=== PATIENT | male | born 1960 | race Caucasian/White ===

== ENCOUNTER 2016-10-19 06:11 | Day surgery (SDC) | payer OTHER ==
[2016-10-19] VITALS (8 sets, daily range): BP systolic 109–129; BP diastolic 67–100; PULSE 58–87; RESP 16–20; TEMP 94.9–97.7; O2SAT 95–100
[~2016-10-19] VITALS: Ht 165.1 cm; Wt 75.0 kg
[~2016-10-19 06:11] MED LIST: AMOX875T20 PO; AZIT250T43 PO; ENOX120P SQ; FLUO-1 PO; PRED20 PO
[2016-10-19] MEDS ORDERED: LEVO25TA4 PO (06:39)
[2016-10-19 07:04] LABS: AUTOMATED NEUTROPHIL # 4.3 TH/MM3 (1.8-7.7); BASOPHIL % 0.5 % (0.0-2.0); EOSINOPHIL # 0.3 TH/MM3 (0-0.4); EOSINOPHIL % 4.7 % (0.0-4.0); HEMATOCRIT 40.6 % (39.0-51.0); HEMO FLAGS DIFF FINAL; LYMPH % 25.7 % (9.0-44.0); LYMPHOCYTE # 1.8 TH/MM3 (1.0-4.8); MEAN CELL VOLUME 89.4 FL (80.0-100.0); MEAN CORPUSCULAR HEMOGLOBIN 30.9 PG (27.0-34.0); MEAN CORPUSCULAR HGB CONC 34.5 % (32.0-36.0); MONO % 6.5 % (0.0-8.0); NEUT % 62.6 % (16.0-70.0); PLATELET COUNT 226 TH/MM3 (150-450); RED BLOOD COUNT 4.54 MIL/MM3 (4.50-5.90); RED CELL DISTRIBUTION WIDTH 13.7 % (11.6-17.2); WHITE BLOOD COUNT 6.9 TH/MM3 (4.0-11.0)
[2016-10-19 07:14] LABS: PROTHROMBIN TIME - PATIENT 11.1 SEC (9.8-11.6)
[2016-10-19] MEDS ORDERED: ceFAZolin 2 GM PREMIX 50 ML ONE (07:43)
[2016-10-19] MEDS ORDERED: MIDAZOLAM HCL 2 MG/2 ML VIAL ONE ×2 (07:44→08:16)
[2016-10-19] MEDS ORDERED: LIDOCAINE 1%/EPINEPHrine 1:100,000 SOLN 20 ML VIAL ONE (08:05)
--- NOTE | 2016-10-19 08:35 | PD.RAD ---
Post Procedure Progress Note Pre Procedure Diagnosis: (1) Lung cancer Post Procedure Diagnosis: (1) Lung cancer Procedure Date: Oct 19, 2016 Supervising Radiologist: Seven Herrera JR Proceduralist/Assist: Zulema Jenkins, RT(R), Ledy Carlton RT(R)() Anesthesia: Conscious Sedation Plan of Activity Patient to Unit: ROPU Patient Condition: Good See PACS Report for procedural detail/treatment Central Venous Access Device Procedure 1 Right Internal Jugular Infusaport Removal single lumen Findings: No signs of infection. Port removed in its entirety. Plan F/U with IR or a physician in 10-14 days for a site check. Jr. Javier,Seven Camp MD Oct 19, 2016 08:35
--- NOTE | 2016-10-19 08:53 | RADRPT ---
EXAM DATE/TIME: 10/19/2016 07:20 [facility] COMPARISON: No previous studies available for comparison. INDICATIONS : Patient is in need of removal of an Infusaport as patient no longer needs it. Lung cancer in [facility]. MEDICAL HISTORY : History of non small cell lung cancer, thyroid disease. SURGICAL HISTORY : History of port placement. ENCOUNTER: Subsequent ACUITY: > 1 year PAIN SCORE: 0/10 SEDATION TIME: 15 minutes 1.) 4 mg midazolam (Versed) IV 2.) 200 mcg fentanyl (Sublimaze) IV Prophylactic antibiotics were administered with appropriate pre-procedure timing. Vancomycin within 2 hrs of procedure, Ancef (or alternative) within 1 hr of procedure. PROCEDURE : 1. Removal of Nyhnou-o-knud. 2. Conscious sedation with continuous EKG and oximetry monitoring. The risk, benefits and potential complications of Fwcwdh-p-Rjhg removal were discussed. Written conse nt was obtained. The patient was placed supine. The chest wall was prepped in sterile fashion. Full sterile techniqu e was used, including cap, mask, sterile gloves and gown, and a large sterile sheet. Hand hygiene an d 2% chlorhexidine and/or Betadine/alcohol prep was utilized per protocol for cutaneous antisepsis. The skin and subcutaneous tissues were infiltrated with local anesthetic solution. A small incision w as made, the subcutaneous pocket was opened. The port was dissected from the subcutaneous tissues and easily removed in one piece. The pocket incision was closed with subcuticular Vicryl suture. Steri -Strips were applied. Conscious sedation was performed with the prescribed dosages and duration as above in the presence of an independent trained radiology nurse to assist in the monitoring of the patient. EKG and oximetry remained stable throughout the procedure. The patient tolerated the procedure well and there were no complications. The patient was sent to post anesthesia recovery in stable condition. CONCLUSION: Uncomplicated port removal as above. Seven Herrera Jr., MD on October 19, 2016 at 8:50 Board Certified Radiologist. This report was verified electronically.
== END 2016-10-19 11:35 | disposition home or self-care (01) ==
LOC: HRIP 06:11 → HROP 06:11
PROVIDERS: ATTEND Radiology Radiation Oncology
DX: C34.11 Malignant neoplasm of upper lobe, right bronchus or lung (principal); E07.9 Disorder of thyroid, unspecified
CPT/HCPCS: 36590; 85025; 85610; 85730; 99152; J0690; J2250; J3010

== ENCOUNTER 2017-09-08 12:36 | Day surgery (SDC) | payer OTHER ==
[~2017-09-08 12:36] MED LIST changes: -AMOX875T20 PO; -AZIT250T43 PO; -ENOX120P SQ; -FLUO-1 PO; +LEVO25TA4 PO; -PRED20 PO
[2017-09-08 13:11] VITALS: BP 112/70; PULSE 74; RESP 14; TEMP 97; O2SAT 97
[2017-09-08 14:02] VITALS: BP 112/67; PULSE 60; RESP 20; TEMP 97.8; O2SAT 96
[2017-09-08] MEDS ORDERED: LIDOCAINE HCL 1% 20 ML VIAL ONE (14:06)
--- NOTE | 2017-09-08 16:07 | RADRPT ---
EXAM DATE/TIME: 09/08/2017 13:05 [facility] COMPARISON: No previous studies available for comparison. EXTERNAL COMPARISON: [facility], PET/CT TUMOR, Aug 17 2017. INDICATIONS : Enlarged right axilla lymph node. MEDICAL HISTORY : Carcinoma, lung. Thyroid disease. Anxiety. SURGICAL HISTORY : Port insertion. Chemotherapy. Radiation therapy. ENCOUNTER: Initial ACUITY: 3 weeks PAIN SCORE: 0/10 LOCATION: Right axilla. ORGAN: Right lymph node SPECIMENS: Three core specimen(s) submitted for pathologic evaluation. DEVICE: 18 gauge Temno needle Post procedure scanning reveals no hematoma or other complication. The possibility does exist that the tissue obtained will be non-diagnostic. If the sample is non-jillian gnostic a repeat biopsy or surgical biopsy may need to be performed. TECHNIQUE: 1. Ultrasound guidance for needle biopsy. 2. Needle biopsy. The risks, benefits and alternatives to the procedure were explained and verbal and written consent w as obtained. The site was prepped in sterile fashion. Full sterile technique was used, including ca p, mask, sterile gloves and gown and a large sterile sheet. Hand hygiene and 2% chlorhexidine and/or betadine/alcohol prep was utilized per protocol for cutaneous antisepsis. The skin and subcutaneous tissues were infiltrated with local anesthetic solution. Sterile gel and sterile probe cover were u tilized for ultrasound guidance. With the patient on the ultrasound table, images were obtained. A needle was advanced into the identified target and the number of specimens as above obtained and shore bmitted for pathologic evaluation. The patient tolerated the procedure well and left the ultrasound suite in stable condition. CONCLUSION: Uncomplicated ultrasound guided needle biopsy. Yan Zaldivar MD on September 08, 2017 at 16:04 Board Certified Radiologist. This report was verified electronically.
== END 2017-09-08 14:18 | disposition home or self-care (01) ==
LOC: HRAD 12:36 → HRIP 12:41 → HRAD 14:18
PROVIDERS: ATTEND Radiology Radiation Oncology
DX: R59.0 Localized enlarged lymph nodes (principal); C34.91 Malignant neoplasm of unspecified part of right bronchus or lung
CPT/HCPCS: 38505; 76942; 88305

== ENCOUNTER 2017-10-13 06:16 | Day surgery (SDC) | payer OTHER ==
[~2017-10-13] VITALS: Ht 165.1 cm; Wt 72.7 kg
[2017-10-13] VITALS (7 sets, daily range): BP systolic 114–148; BP diastolic 38–92; PULSE 61–80; RESP 17–20; TEMP 97.5; O2SAT 91–96
[2017-10-13 07:24] LABS: AUTOMATED NEUTROPHIL # 4.3 TH/MM3 (1.8-7.7); BASOPHIL % 0.4 % (0.0-2.0); EOSINOPHIL # 0.3 TH/MM3 (0-0.4); EOSINOPHIL % 3.9 % (0.0-4.0); HEMATOCRIT 42.5 % (39.0-51.0); HEMOGLOBIN 14.7 GM/DL (13.0-17.0); LYMPH % 21.4 % (9.0-44.0); LYMPHOCYTE # 1.4 TH/MM3 (1.0-4.8); MEAN CELL VOLUME 89.2 FL (80.0-100.0); MEAN CORPUSCULAR HGB CONC 34.7 % (32.0-36.0); MEAN PLATELET VOLUME 6.3 FL (7.0-11.0); MONO % 8.5 % (0.0-8.0); MONOCYTE # 0.6 TH/MM3 (0-0.9); NEUT % 65.8 % (16.0-70.0); PLATELET COUNT 277 TH/MM3 (150-450); RED BLOOD COUNT 4.76 MIL/MM3 (4.50-5.90); RED CELL DISTRIBUTION WIDTH 13.8 % (11.6-17.2); WHITE BLOOD COUNT 6.5 TH/MM3 (4.0-11.0)
[2017-10-13] MEDS ORDERED: VANCOMYCIN HCL 1000 MG VIAL ONE (07:25)
[2017-10-13] MEDS ORDERED: SODIUM CHLORIDE 0.9% 1000 ML IV SCH (07:30)
[2017-10-13] MEDS ORDERED: CHLORHEXIDINE GLUCONATE 2 % 1 PACK (2 CLOTHS) TOPICAL SCH (07:30)
[2017-10-13] MEDS ORDERED: VANCOMYCIN 1 GM/200 ML PREMIX IV SCH (07:30)
[2017-10-13] MEDS ORDERED: POVIDONE IODINE 5% (ANTISEPSIS KIT) 4 APPLICATIONS EACH NARE SCH (07:30)
[2017-10-13] MEDS ORDERED: ceFAZolin 2 GM PREMIX 50 ML - implanted port/tunneled catheter insertion IV SCH (07:30)
[2017-10-13 07:33] LABS: INTERNATIONAL NORMALIZED RATIO 1.1 RATIO; PROTHROMBIN TIME - PATIENT 11.2 SEC (9.8-11.6)
[2017-10-13] MEDS ORDERED: LIDOCAINE 1%/EPINEPHrine 1:100,000 SOLN 30 ML VIAL ONE (07:40)
[2017-10-13] MEDS ORDERED: MIDAZOLAM HCL 2 MG/2 ML VIAL ONE (08:16)
[2017-10-13] MEDS ORDERED: SODIUM CHLORIDE 0.9% FLUSH 10 ML FLUSH IVF PRN (08:45)
--- NOTE | 2017-10-13 08:47 | PD.RAD ---
Post Procedure Progress Note Pre Procedure Diagnosis: (1) Lung cancer Post Procedure Diagnosis: (1) Lung cancer Procedure Date: Oct 13, 2017 Supervising Radiologist: Cosme Strickland Estimated blood loss: 2cc Anesthesia: Local, Conscious Sedation Plan of Activity Patient to Unit: ROPU Patient Condition: Fair Additional Comments: Port placed via the right IJ. Catheter in good position OK for use. Full dictated report to follow. See PACS Report for procedural detail/treatment Cosme Strickland MD Oct 13, 2017 08:47
--- NOTE | 2017-10-13 10:06 | RADRPT ---
EXAM DATE/TIME: 10/13/2017 08:55 [facility] COMPARISON: SPAUB-I-BRNO REMOVAL, W/O FLUORO, RIGHT, October 19, 2016, 7:20. INDICATIONS : Patient with non-small cell lung cancer in need of Lddap-u-Qtco placement. MEDICAL HISTORY : Metastatic lung cancer, Large pericardial effusion, Right pleural effusion, Pulmonary emboli SURGICAL HISTORY : Port placement, Pericardiocentesis, Lung biopsy ENCOUNTER: Subsequent ACUITY: >1 year PAIN SCORE: 0/10 FLUORO TIME: 0.4 minutes IMAGE SERIES: 2 SEDATION TIME: 15 minutes ACCESS: Right internal jugular vein SEDATION: 1.) 2 mg midazolam (Versed) IV 2.) 100 mcg fentanyl (Sublimaze) IV Prophylactic antibiotics were administered with appropriate pre-procedure timing. Vancomycin within 2 hours of procedure, Ancef (or alternative) within 1 hour of procedure. DEVICE: 1. 8 [place] single lumen Xcela plus port PROCEDURE : 1. Continuous pulse oximetry and EKG monitoring. 2. Intravenous conscious sedation. 3. Ultrasound guidance for venous access. 4. Fluoroscopic guided implantable central venous port placement. The patient was placed supine. The neck was prepped in sterile fashion. Full sterile technique was u sed, including cap, mask, sterile gloves and gown, and a large sterile sheet. Hand hygiene and 2% ch lorhexidine Betadine was utilized per protocol for cutaneous antisepsis with appropriate dry time for site. Sterile gel and sterile probe cover were utilized for ultrasound guidance. The skin and sub cutaneous tissues were infiltrated with local anesthetic solution. Under direct ultrasound guidance, central venous access was accomplished in the targeted vessel. The ultrasound images depicting access guidance were stored and saved to PACS for permanent record. A s ubcutaneous pocket was created using blunt dissection. The port was introduced to the pocket. The c atheter tubing was fed through a subcutaneous tunnel to the venotomy site. The catheter tubing was c ut to a suitable length and then was introduced through a valved Peel-Away sheath and positioned with catheter tubing tip at the cavo-atrial junction level. The pocket incision was closed with subcutic ular Vicryl suture. Steri-Strips were applied. The port was flushed and locked with heparin solutio n per protocol. Sterile dressing was applied to the site. The patient tolerated the procedure well. Conscious sedation was performed with the prescribed dosages and duration as above in the presence of an independent trained radiology nurse to assist in the monitoring of the patient. EKG and oximetry remained stable throughout the procedure. The patient tolerated the procedure well and there were no complications. The patient was sent to post anesthesia recovery in stable condition. CONCLUSION: Uncomplicated ultrasound and fluoroscopic guided implanted central venous port catheter placement as described in detail above. An 8 [place] Power port was placed. Cosme Strickland MD on October 13, 2017 at 10:05 Board Certified Radiologist. This report was verified electronically.
== END 2017-10-13 11:20 | disposition home or self-care (01) ==
LOC: HROP 06:16 → HRIP 06:19 → HROP 11:20
PROVIDERS: ATTEND Internal Medicine Hematology & Oncology
DX: C34.91 Malignant neoplasm of unspecified part of right bronchus or lung (principal); I31.3 Pericardial effusion (noninflammatory); I26.99 Other pulmonary embolism without acute cor pulmonale; E03.9 Hypothyroidism, unspecified; Z01.818 Encounter for other preprocedural examination
CPT/HCPCS: 36561; 76937; 77001; 85025; 85610; 85730; 99152; C1788; J0690; J1642; J2250; J3010; J3370; J7030

== ENCOUNTER 2018-06-29 21:41 | Inpatient (IN) ==
[2018-06-29] MEDS ORDERED: Heparin 10,000 UNITS/10 ML Vial (for IV use) IV.PUSH STA (21:55)
--- NOTE | 2018-06-29 22:12 | XR ---
EXAM DATE: 06/29/2018 10:07 PM EST AGE/SEX: 57 years / Male INDICATIONS: Evaluate chest for trauma CLINICAL DATA: This is the patient's initial encounter. Patient reports that signs and symptoms have been present for 2 weeks and indicates a pain score of 3/10. MEDICAL/SURGICAL HISTORY: Carcinoma, lung. None. COMPARISON: [facility], CT CHEST W/O CONTRAST, 12/19/2017. . FINDINGS: Visualized osseous structures are grossly intact. There is right-sided volume loss and elevation of t he right hemidiaphragm, increased from the prior CT. There is vague opacification in the region of th e right hilum and some streaky and patchy parenchymal consolidation throughout the right lung. Left lung reasonably clear. I don't see a pneumothorax on either side. Heart size stable, within normal limits. There is a right internal jugular Tdowrd-g-Cwon catheter with tip at the atriocaval junction. CONCLUSION: Worsening volume loss and patchy consolidation of the right lung including a somewhat masslike area i n the region of the right hilum. Right hemidiaphragm is now elevated. CT pulmonary angiogram is pendi ng. Electronically signed by: Nicolas Han MD 06/29/2018 10:11 PM EST
[2018-06-29 22:25] LABS: Baso # (Auto) 0.2 th/mm3 (0.0-0.2); Baso % (Auto) 1.4 % (0.0-2.0); Eos # (Auto) 0.2 th/mm3 (0.0-0.4); Eos % (Auto) 2.1 % (0.0-4.0); Hematocrit 30.6 % (39.0-51.0); Hemoglobin 10.3 gm/dL (13.0-17.0); Lymph # (Auto) 1.1 th/mm3 (1.0-4.8); Lymph % (Auto) 9.7 % (9.0-44.0); Mean Corpuscular HGB Conc 33.6 % (32.0-36.0); Mean Corpuscular Volume 92.4 fL (80.0-100.0); Mean Platelet Volume 6.7 fL (7.0-11.0); Mono % (Auto) 8.7 % (0.0-8.0); Neut # (Auto) 9.1 th/mm3 (1.8-7.7); Neut % (Auto) 78.1 % (16.0-70.0); Platelet Count 192 th/mm3 (150-450); Red Blood Count 3.31 mil/mm3 (4.50-5.90); White Blood Count 11.7 th/mm3 (4.0-11.0)
[2018-06-29 22:44] LABS: Activated Partial Thrombo Time 33.9 sec (23.4-31.7); INR 1.7 Ratio; Prothrombin Time 17.4 sec (9.8-11.6)
[2018-06-29 22:47] LABS: Alanine Aminotransferase 26 U/L (12-78); Albumin 1.8 g/dL (3.4-5.0); Alkaline Phosphatase 83 U/L (45-117); Anion Gap 7 meq/L (5-15); Aspartate Aminotransferase 37 U/L (15-37); Blood Urea Nitrogen 17 mg/dL (7-18); Carbon Dioxide 26.5 meq/L (21.0-32.0); Chloride 108 meq/L (98-107); Glomerular Filtration Rate Greater Than 89 mL/min (>89); Glucose,Random 100 mg/dL (74-106); Potassium 3.9 meq/L (3.5-5.1); Sodium 141 meq/L (136-145); Troponin I 0.09 ng/mL (0.02-0.05)
[2018-06-29] MEDS: Heparin Drip 25,000 UNIT/250 ML BAG IV.CONT PRN (23:18)
--- NOTE | 2018-06-29 23:28 | CT ---
EXAM DATE: 06/29/2018 11:09 PM EST AGE/SEX: 57 years / Male INDICATIONS: Shortness of breath. CLINICAL DATA: This is the patient's initial encounter. Patient reports that signs and symptoms have been present for 1 day and indicates a pain score of 0/10. MEDICAL/SURGICAL HISTORY: Carcinoma, lung. Pulmonary embolism. . Port Placement. RADIATION DOSE: 8.74 CTDI (mGy) COMPARISON: [facility], PET/CT TUMOR, 05/09/2018. . TECHNIQUE: Volumetric scanning was performed using a multi-row detector CT scanner during bolus infu letty of 75 ml Omnipaque 350 (iohexol) nonionic water-soluble contrast as a single exam dose. The [place] a was post processed with a variety of visualization algorithms including full volume maximum intensi ty projection and sliding thin slab reformation. Using automated exposure control and adjustment of the mA and/or kV according to patient size, radiation dose was kept as low as reasonably achievable t o obtain optimal diagnostic quality images. DICOM format image data is available electronically for review and comparison. FINDINGS: The examination is positive for pulmonary embolism especially on the left side in the left lower lobe . There is a reported history of lung carcinoma. There is a large 2.7 cm AP window lymph node bilateral hilar and subcarinal adenopathy. Multiple bilateral pulmonary nodules noted within area of masslike consolidation in the right upper lobe measuring around 5 cm in diameter patient with reported history of lung carcinoma. Patchy groundglass opacity also present in the lungs. There is a moderate size ri ght pleural effusion with some compressive atelectasis. Trace left pleural fluid. No acute findings in the upper abdomen. Multiple subacute upper right rib fractures similar to [place] r 2018. CONCLUSION: 1. Positive for pulmonary embolism, especially on the left side. 2. Metastatic lung disease with multiple bilateral pulmonary nodules and conglomerate masslike conso lidation in the right upper lobe measuring up to 5 cm in diameter. Reported history of lung carcinoma . There is AP window, bilateral hilar and subcarinal adenopathy. 3. Moderate right effusion with compressive atelectasis on the right. 4. Vimvbn-x-Kuxq in superior vena cava. 5. Compared with PET scan from May 09, 2018 there is progression of metastatic lung disease, sharath opathy and right pleural effusion. Electronically signed by: Toi Rodriguez MD 06/29/2018 11:26 PM EST
[2018-06-29] MEDS ORDERED: Morphine Sulfate Inj 2 MG/ML Vial IV.PUSH PRN (23:43)
[2018-06-29] MEDS ORDERED: Acetaminophen 325 MG Tablet PO PRN (23:43)
[2018-06-29] MEDS ORDERED: Bisacodyl 10 MG Supp RECTAL PRN (23:43)
--- NOTE | 2018-06-29 23:43 | P.HPCC ---
History of Present Illness Service: Critical care medicine Primary Care Physician: Juan Guerrero MD Chief Complaint: Shortness of breath History of Present Illness: This is a 57-year-old male. Admission 06/29/2018 the past medical history includes stage IV adenocarcinoma of the lung. This was diagnosed in 2012 was admitted with a large malignant pericardial effusion/right pleural effusion pulmonary embolism. He had a pericardiocentesis revealed poorly differentiated adenocarcinoma with malignant cells that were negative for EGFR and ALK. He received carbo, Taxol and Avastin maintenance times radiation of the right lung. He did well until 08/25 when developed seen a large mass in the right anterior forearm. This showed multiple pulmonary masses and axillary lymph nodes. MRI of the brain was negative. Needle biopsy of the right axilla revealed metastatic poorly differentiated non-small lung cancer. EGFR and ALK negative. PDL1 1% He received 5 cycles of carboplatin, Taxol and abstain. In May 2018 patient had a PET scan. These revealed recurrent disease. He had left supraclavicular adenopathy, mediastinal and axillary adenopathy and bony metastases. Today, patient presented to [facility] with shortness of breath. He has noted progressive shortness of breath over the past week. He is noticed regular in the left lower extremity edema. X-ray revealed a large right pleural effusion and 2 nonocclusive left lower lobe pulmonary embolus. Two- point centimeter bilateral hilar soft carinal lymph nodes. Right upper lobes 5 cm mass. Large right pleural effusion. Pulmonary nodules. Thoracentesis was done in the ED which removed 1500 cc. Currently on a nonrebreather satting 100% . Follow-up chest x-ray revealed no signs of pneumothoraces. - Diagnosis (1) Recurrent right pleural effusion (2) Adenocarcinoma of lung, stage 4 (3) Leukocytosis (4) Normocytic anemia (5) Hypothyroidism (6) Elevated INR (7) Pulmonary embolus (8) Hypoalbuminemia Inpatient Certification: Inpatient certification Estimated Total Length of Stay (Days): 6 Plans for Post Hospital Care: Home Review of Systems Constitutional: Reports body ache(s), Denies anorexia, Denies chills Eyes: Denies blind spots Ears, Nose, Mouth, and Throat: Denies bleeding gums, Denies dental pain Cardiovascular: Denies chest pain, Denies chest pain at rest, Denies chest pain with activity Respiratory: Reports shortness of breath, Reports shortness of breath with activity, Denies change in phlegm color, Denies chest congestion, Denies pain on inspiration Gastrointestinal: Denies abdominal pain Genitourinary: Denies urinary hesitancy Musculoskeletal: Reports back pain, Reports body aches, Denies abnormal walking Skin/Breast: Denies bleeding lesions, Denies yellowing of the skin Neurologic: Denies abnormal hearing, Denies abnormal movements Psychiatric: Reports abnormal sleep pattern, Reports anxiety, Denies confusion Endocrine: Denies cold intolerance, Denies excessive sweating Hematologic/Lymphatic: Denies easy bleeding Allergic/Immunologic: Denies GI upset with certain foods PMFSH - History History Provided By: Patient - Medical History Medical History: Medical History (Last Reviewed 06/30/18 @ 00:52 by Brendan Mccain MD) Hypothyroid Lung cancer Pulmonary embolism - Surgical History Surgical History: Surgical History (Last Updated 06/30/18 @ 00:54 by Rick Nielsen MD) Port-A-Cath in place S/P pericardiocentesis - Family History Family History: Family History (Last Updated 06/30/18 @ 00:55 by Rick Nielsen MD) Other Patient's father is - Social History I have reviewed the patient's Social History: Yes - Tobacco History Second Hand Smoke Exposure: No Tobacco Use In Past 30 Days: No Smoking Status: Former smoker - Alcohol History How Often Do You Have a Drink Containing Alcohol: 4 or more times a week - Substance Use History Substance History: No History of Abuse - Travel History Recent Travel in the [place] Within the Last 8 Weeks: No Recent Travel Out of the Country Within the Last 8 Weeks: No - Immunization History Tetanus Immunization: <5 Years Medications and Allergies Active Medications: Active Medications Heparin Sodium/Dextrose (Heparin/D5w 25,000 U/250 Ml) 25,000 unit in 250 mls @ 0 mls/hr IV.CONT TITRATE PRN; Protocol PRN Reason: Per Protocol Last Admin: 06/29/18 23:18 Dose: 1,100 units/hr, 11 mls/hr Allergies Allergy/AdvReac Type Severity Reaction Status Date / Time No Known Allergies Allergy Unknown Uncoded 10/13/17 07:18 Home Medications Medication Instructions Recorded Confirmed Type folic acid 1 mg PO DAILY 06/29/18 06/29/18 History levothyroxine 25 mcg PO DAILY 06/29/18 06/29/18 History Results - Labs CBC & Chem 7: 06/29/18 22:00 06/29/18 22:00 Labs: Short CBC 06/29/18 Range/Units 22:00 WBC 11.7 H (4.0-11.0) th/mm3 Hgb 10.3 L (13.0-17.0) gm/dL Hct 30.6 L (39.0-51.0) % Plt Count 192 D (150-450) th/mm3 BMP 06/29/18 22:00 Sodium 141 Potassium 3.9 Chloride 108 H Carbon Dioxide 26.5 BUN 17 Creatinine 0.74 Calcium 7.0 L* Cardiac Enzymes 06/29/18 Range/Units 22:00 Troponin I 0.09 H (0.02-0.05) ng/mL Liver Function 06/29/18 Range/Units 22:00 Total Bilirubin 0.3 (0.2-1.0) mg/dL AST 37 (15-37) U/L ALT 26 (12-78) U/L Alkaline Phosphatase 83 (45-117) U/L Albumin 1.8 L (3.4-5.0) g/dL - Imaging Impressions Chest X-Ray 06/29/18 21:52 CONCLUSION: Worsening volume loss and patchy consolidation of the right lung including a somewhat masslike area in the region of the right hilum. Right hemidiaphragm is now elevated. CT pulmonary angiogram is pending. Chest CTA 06/29/18 21:53 CONCLUSION: 1. Positive for pulmonary embolism, especially on the left side. 2. Metastatic lung disease with multiple bilateral pulmonary nodules and conglomerate masslike consolidation in the right upper lobe measuring up to 5 cm in diameter. Reported history of lung carcinoma. There is AP window, bilateral hilar and subcarinal adenopathy. 3. Moderate right effusion with compressive atelectasis on the right. 4. [id number] in superior vena cava. 5. Compared with PET scan from May 09, 2018 there is progression of metastatic lung disease, adenopathy and right pleural effusion. Exam Vital signs: Vital Signs 06/29/18 21:46 06/29/18 21:52 Temperature 98.8 F Pulse Rate 110 H 111 H Respiratory Rate 30 H Blood Pressure 154/86 H Pulse Oximetry 96 97 Intake & Output 06/29/18 06/29/18 06/30/18 06:59 18:59 06:59 Weight 63.503 kg - Constitutional mild distress - Routine HEENT Exam Head: Present: normocephalic, atraumatic Eye: Present: EOMI, PERRL, normal accommodation ENT: Present: mucous membranes moist - Routine Neck Exam Present: supple, full ROM. Absent: JVD, carotid bruit - Routine Chest/Breast/Axilla Exam Chest wall: Absent: tenderness Breast: Absent: tenderness Axillae: Absent: lymphadenopathy - Routine Respiratory Exam Present: decreased breath sounds, diminished air movement. Absent: accessory muscle use - Routine Cardiovascular Exam Present: RRR, S1, S2. Absent: murmur - Routine Abdominal Exam Present: soft, normoactive bowel sounds - Routine Extremities Exam Absent: cyanosis, clubbing, edema Comments: Right greater than left - Routine Skin Exam Present: intact. Absent: cyanosis - Routine Neurological Exam Present: alert, oriented X3, CN II-XII intact. Absent: sensory deficit, motor deficit Septic Shock Reassessment Septic shock perfusion: reassessment completed Caprini VTE Risk Assessment Caprini VTE Risk Assessment: Moderate/High Risk (score >= 2) Caprini Risk Assessment Model: Point Value = 1 Point Value = 2 Point Value = 3 Point Value = 5 Age 41-60 Minor surgery BMI > 25 kg/m2 Swollen legs Varicose veins or History of unexplained or recurrent spontaneous Oral contraceptives or hormone replacement Sepsis (< 1 month) Serious lung disease, including pneumonia (< 1 month) Abnormal pulmonary function Acute myocardial infarction Congestive heart failure (< 1 month) History of inflammatory bowel disease Medical patient at bed rest Age 61-74 Arthroscopic surgery Major open surgery (> 45 min) Laparoscopic surgery (> 45 min) Malignancy Confined to bed (> 72 hours) Immobilizing plaster cast Central venous access Age >= 75 History of VTE Family history of VTE Factor V Leiden Prothrombin [id number] Lupus anticoagulant Anticardiolipin antibodies Elevated serum homocysteine Heparin-induced thrombocytopenia Other congenital or acquired thrombophilia Stroke (< 1 month) Elective arthroplasty Hip, pelvis, or leg fracture Acute spinal cord injury (< 1 month) Prophylaxis Regimen: Total Risk Factor Score Risk Level Prophylaxis Regimen 0-1 Low Early ambulation 2 Moderate Order ONE of the following: *Sequential Compression Device (SCD) *Heparin 5000 units SQ BID 3-4 Higher Order ONE of the following medications: *Heparin 5000 units SQ TID *Enoxaparin/Lovenox 40 mg SQ daily (WT < 150 kg, CrCl > 30 mL/min) *Enoxaparin/Lovenox 30 mg SQ daily (WT < 150 kg, CrCl > 10-29 mL/min) *Enoxaparin/Lovenox 30 mg SQ BID (WT < 150 kg, CrCl > 30 mL/min) AND/OR *Sequential Compression Device (SCD) 5 or more Highest Order ONE of the following medications: *Heparin 5000 units SQ TID (Preferred with Epidurals) *Enoxaparin/Lovenox 40 mg SQ daily (WT < 150 kg, CrCl > 30 mL/min) *Enoxaparin/Lovenox 30 mg SQ daily (WT < 150 kg, CrCl > 10-29 mL/min) *Enoxaparin/Lovenox 30 mg SQ BID (WT < 150 kg, CrCl > 30 mL/min) AND *Sequential Compression Device (SCD) Assessment and Plan - Problem List (1) Recurrent right pleural effusion Code(s): J90 - Pleural effusion, not elsewhere classified Status: Acute (2) Adenocarcinoma of lung, stage 4 Code(s): C34.90 - Malignant neoplasm of unspecified part of unspecified bronchus or lung Status: Chronic (3) Leukocytosis Code(s): D72.829 - Elevated white blood cell count, unspecified Status: Acute (4) Normocytic anemia Code(s): D64.9 - Anemia, unspecified Status: Chronic (5) Hypothyroidism Code(s): E03.9 - Hypothyroidism, unspecified Status: Acute (6) Elevated INR Code(s): R79.1 - Abnormal coagulation profile Status: Acute (7) Pulmonary embolus Code(s): I26.99 - Other pulmonary embolism without acute cor pulmonale Status : Acute (8) Hypoalbuminemia Code(s): E88.09 - Other disorders of plasma-protein metabolism, not elsewhere classified Status: Acute - Assessment and Plan Plan: Neuro/Psych: Acetaminophen 650 mg p.o. every 6 hours as needed fever Hydrocodone/acetaminophen 5/51 tablet every 4 hours as needed pain 1 through 5 Morphine sulfate 2 g IV every 2 hours as needed pain 6 through 10 MRI of brain ordered to rule out brain mass being anticoagulated. Negative MRI brain 08/25. CV: Elevated troponin Check 2D echocardiogram and follow-up on EKG. Recheck troponin at 0800 hrs. today Currently not requiring vasopressors and/or antihypertensives On normal saline at 84 cc an hour Resp: Acute left lower lobe pulmonary embolism Right pleural effusion likely malignant CT pulmonary revealed 2.7 cm bilateral hilar and subcarinal lymph nodes. Right upper lobe lung mass 5 cm. Large right pleural effusion. Multiple lymph nodes. Left lower lobe pulmonary embolism. Post thoracentesis serosanguineous 1500 cc. Follow-up portable chest x-ray revealed no pneumothorax We will recheck at 0800 Nasal cannula to maintain saturations greater than equal 92% Incentive spirometry while awake Follow-up on chest x-ray in a.m. 06/30 GI: Hypoalbuminemia Advance diet as tolerated Pantoprazole for GI prophylaxis Docusate sodium/senna 1 tablet twice daily for bowel regimen : Straight catheterization as needed Endo: Hypothyroidism Sliding scale insulin Accu-Cheks to maintain euglycemia aspart insulin every 6 hours Check TSH. Continue levothyroxine 25 mcg daily Renal: Creatinine currently within normal limits Monitor urine output Accurate I's and O's Heme: Stage IV adenocarcinoma lung Non-small cell carcinoma lung Leukocytosis Normocytic anemia Elevated INR Dr. Cabrera will be consulted. Currently on heparin drip for pulmonary embolism. Recheck CBC daily. Follow trends. ID: Monitors for signs and symptomatology of infection FEN: Replace electrolytes as clinically indicated for ICU electrolyte protocol MSK: PT evaluate and treat Access -. Peripheral IV. Can use Port-A-Cath if needed right-sided. Central line if indicated Prophylaxis - -GI pantoprazole - -DVT heparin drip. Check lower extremity Dopplers prior to SCDs Level 3 admission Code Status: Full code Discussed Condition With: Dr. mccain. Patient. Care plan discussed and all questions answered. (2) Adenocarcinoma of lung, stage 4 Qualifiers: Laterality: unspecified laterality Qualified Code(s): C34.90 - Malignant neoplasm of unspecified part of unspecified bronchus or lung (3) Leukocytosis Qualifiers: Leukocytosis type: unspecified Qualified Code(s): D72.829 - Elevated white blood cell count, unspecified (5) Hypothyroidism Qualifiers: Hypothyroidism type: unspecified Qualified Code(s): E03.9 - Hypothyroidism, unspecified (7) Pulmonary embolus Qualifiers: Pulmonary embolism type: other Chronicity: acute Acute cor pulmonale presence: without acute cor pulmonale Qualified Code(s): I26.99 - Other pulmonary embolism without acute cor pulmonale
[2018-06-29] MEDS ORDERED: Lidocaine 1%/Epinephrine 1:100,000 Inj 20 ML Vial INFILTRATN ONE (23:56)
[2018-06-30] MEDS ORDERED: Lidocaine 1%/Epinephrine 1:100,000 Inj 20 ML Vial ONE (00:03)
[2018-06-30] MEDS ORDERED: Sodium Phosphate Inj 30 MMOL in Sodium Chlor 0.9% Inj 250 ML IV.SIG PRN (00:46)
[2018-06-30] MEDS ORDERED: Magnesium Sulfate Inj 2 GM in Sodium Chlor 0.9% Inj 96 ML IV.SIG PRN (00:46)
[2018-06-30] MEDS ORDERED: Potassium Phosphate Inj 30 MMOL in Sodium Chlor 0.9% Inj 250 ML IV.SIG PRN (00:46)
[2018-06-30] MEDS ORDERED: Potassium Chlor 20 mEq Premix 20 MEQ/100 ML PIGGYBACK IV.SIG PRN ×2 (00:46)
[2018-06-30] MEDS ORDERED: Albumin Human 25% Inj 100 ML IV.SIG ONE (00:46)
[2018-06-30] MEDS ORDERED: Magnesium Sulfate Inj 4 GM in Sodium Chlor 0.9% Inj 92 ML IV.SIG PRN (00:46)
[2018-06-30] MEDS ORDERED: Potassium Phosphate 500 MG Soluble Tablet PO PRN ×2 (00:46)
[2018-06-30] MEDS ORDERED: Potassium Chlor 40 mEq Premix 40 MEQ/100 ML PIGGYBACK IV.SIG PRN ×2 (00:46)
[2018-06-30] MEDS ORDERED: Potassium Chloride 25 MEQ Effervescent Tablet PO PRN (00:46)
[2018-06-30] MEDS ORDERED: Magnesium Oxide 400 MG Tablet PO PRN (00:46)
[2018-06-30] MEDS ORDERED: Dextrose 50% in Water 50 ML Vial IV.PUSH PRN (00:47)
--- NOTE | 2018-06-30 00:54 | ED ---
HPI General Chief complaint: Respiratory Symptoms Stated complaint: SoB Time Seen by Provider: 06/29/18 21:43 Source: patient Mode of arrival: ambulatory Limitations: no limitations History of Present Illness HPI narrative: 57-year-old man, history of lung cancer, treated with immune therapy, history of PE x2013, presents with shortness of breath. States for the past 2 weeks or so has had progressive shortness of breath with exertion. He said some cough. Has had lower extremity swelling, right greater than left. This is a progressively worsened, there is severe, he has marked limitation at this point. He speaks in short broken sentences. No chest pain. No stomach pain or nausea. Otherwise had been doing generally well. Related Data Home Medications Medication Instructions Recorded Confirmed folic acid 1 mg PO DAILY 06/29/18 06/29/18 levothyroxine 25 mcg PO DAILY 06/29/18 06/29/18 Allergies Allergy/AdvReac Type Severity Reaction Status Date / Time No Known Allergies Allergy Unknown Uncoded 10/13/17 07:18 Review of Systems ROS: all other systems reviewed are negative [facility] Medical History Medical History Hypothyroid (Acute) Lung cancer (Acute) Port-A-Cath in place (Acute) Pulmonary embolism (Acute) Social History Social History Substance History: No History of Abuse Second Hand Smoke Exposure: No Smoking Status: Former smoker How Often Do You Have a Drink Containing Alcohol: 4 or more times a week Recent Travel in [facility] [[email or web address] within the Last 8 Weeks: No Recent Out of Country Travel within the Last 8 Weeks: No Immunization History Tetanus Immunization: <5 Years Exam Narrative Exam Narrative: GENERAL: 57-year-old man, moderate respiratory distress. SKIN: Focused skin assessment warm/dry. HEAD: Atraumatic. Normocephalic. EYES: Pupils equal and round. No scleral icterus. No injection or drainage. ENT: No nasal bleeding or discharge. Mucous membranes pink and moist. NECK: Trachea midline. No JVD. CARDIOVASCULAR: Regular rate and rhythm. No murmur appreciated. RESPIRATORY: Moderate respiratory distress. Short broken sentences. No tachypnea. Decreased breath sounds throughout the right side. GASTROINTESTINAL: Abdomen soft, non-tender, nondistended. Hepatic and splenic margins not palpable. MUSCULOSKELETAL: No obvious deformities. Edema both lower extremities, right greater than left with pitting edema about the ankles and both feet. NEUROLOGICAL: Awake and alert. No obvious cranial nerve deficits. Motor grossly within normal limits. Normal speech. PSYCHIATRIC: Appropriate mood and affect; insight and judgment normal. Course Initial Documented Vital Signs Temperature 98.8 F 06/29/18 21:46 Pulse Rate 110 H 06/29/18 21:46 Respiratory Rate 30 H 06/29/18 21:46 Blood Pressure 154/86 H 06/29/18 21:46 Pulse Oximetry 96 06/29/18 21:46 Last Documented Vital Signs Temperature 98.8 F 06/29/18 21:46 Pulse Rate 100 H 06/30/18 00:37 Respiratory Rate 20 06/30/18 00:37 Blood Pressure 129/80 06/30/18 00:37 Pulse Oximetry 100 06/30/18 00:37 Critical Care Time Critical Care Time: Yes (40) Total Critical Care Time: 40 Attestation: Aggregate critical care time [id number]. Time to perform other separately billable procedures was not included in the critical care time. My time did not include minutes spent treating any other patients simultaneously or on activities that did not directly contribute to the patient's treatment. The services I provided to this patient were to treat and/or prevent clinically significant deterioration that could result in: , respiratory failure, unrecognized PE, permanent morbidity. I provided critical care services requiring my management, as noted below: Chart data review, documentation time, medication orders and management, vital sign assessments/reviewing monitor data, ordering and reviewing lab tests, ordering and interpreting/reviewing x-rays and diagnostic studies, care of the patient and discussion of the patient with the admitting physicians. Medical Decision Making MDM Narrative Medical decision making narrative: 57-year-old male lung cancer presents with shortness of breath, decreased breath sounds on the right. Chest x-ray confirms right-sided pleural effusion. High risk for PE. CT scan confirms pulmonary embolism. He has some tachycardia, mildly elevated troponin. Will admit to the ICU for submassive pulmonary embolism with large pleural effusion. Medical Screen Exam Complete: Yes Emergency Medical Condition: Yes Lab Data Lab results reviewed: Yes I reviewed the patient's lab results. Result diagrams: 06/29/18 22:00 06/29/18 22:00 Lab Results 06/29/18 06/29/18 06/29/18 Range/Units 22:00 22:00 22:00 WBC 11.7 H (4.0-11.0) th/mm3 RBC 3.31 L (4.50-5.90) mil/mm3 Hgb 10.3 L (13.0-17.0) gm/dL Hct 30.6 L (39.0-51.0) % MCV 92.4 (80.0-100.0) fL MCH 31.0 (27.0-34.0) pg MCHC 33.6 (32.0-36.0) % RDW 14.0 (11.6-17.2) % Plt Count 192 D (150-450) th/mm3 MPV 6.7 L (7.0-11.0) fL Neut % (Auto) 78.1 H (16.0-70.0) % Lymph % (Auto) 9.7 (9.0-44.0) % [place] % (Auto) 8.7 H (0.0-8.0) % Eos % (Auto) 2.1 (0.0-4.0) % Baso % (Auto) 1.4 (0.0-2.0) % Neut # (Auto) 9.1 H (1.8-7.7) th/mm3 Lymph # (Auto) 1.1 (1.0-4.8) th/mm3 [place] # (Auto) 1.0 H (0.0-0.9) th/mm3 Eos # (Auto) 0.2 (0.0-0.4) th/mm3 Baso # (Auto) 0.2 (0.0-0.2) th/mm3 WBC Differential . Differential Comment Auto diff final PT (9.8-11.6) sec INR Ratio APTT (23.4-31.7) sec Sodium 141 (136-145) meq/L Potassium 3.9 (3.5-5.1) meq/L Chloride 108 H (98-107) meq/L Carbon Dioxide 26.5 (21.0-32.0) meq/L Anion Gap 7 (5-15) meq/L BUN 17 (7-18) mg/dL Creatinine 0.74 (0.60-1.30) mg/dL Estimated GFR Greater than 89 (>89) mL/min Random Glucose 100 (74-106) mg/dL Calcium 7.0 L* (8.5-10.1) mg/dL Prot Corrected Calcium 8.1 L (8.5-10.1) mg/dL Total Bilirubin 0.3 (0.2-1.0) mg/dL AST 37 (15-37) U/L ALT 26 (12-78) U/L Alkaline Phosphatase 83 (45-117) U/L Troponin I 0.09 H (0.02-0.05) ng/mL B-Natriuretic Peptide 41 (0-100) pg/mL Total Protein 5.0 L D (6.4-8.2) g/dL Albumin 1.8 L (3.4-5.0) g/dL 06/29/18 Range/Units 22:00 WBC (4.0-11.0) th/mm3 RBC (4.50-5.90) mil/mm3 Hgb (13.0-17.0) gm/dL Hct (39.0-51.0) % MCV (80.0-100.0) fL MCH (27.0-34.0) pg MCHC (32.0-36.0) % RDW (11.6-17.2) % Plt Count (150-450) th/mm3 MPV (7.0-11.0) fL Neut % (Auto) (16.0-70.0) % Lymph % (Auto) (9.0-44.0) % [place] % (Auto) (0.0-8.0) % Eos % (Auto) (0.0-4.0) % Baso % (Auto) (0.0-2.0) % Neut # (Auto) (1.8-7.7) th/mm3 Lymph # (Auto) (1.0-4.8) th/mm3 [place] # (Auto) (0.0-0.9) th/mm3 Eos # (Auto) (0.0-0.4) th/mm3 Baso # (Auto) (0.0-0.2) th/mm3 WBC Differential Differential Comment PT 17.4 H (9.8-11.6) sec INR 1.7 Ratio APTT 33.9 H (23.4-31.7) sec Sodium (136-145) meq/L Potassium (3.5-5.1) meq/L Chloride (98-107) meq/L Carbon Dioxide (21.0-32.0) meq/L Anion Gap (5-15) meq/L BUN (7-18) mg/dL Creatinine (0.60-1.30) mg/dL Estimated GFR (>89) mL/min Random Glucose (74-106) mg/dL Calcium (8.5-10.1) mg/dL Prot Corrected Calcium (8.5-10.1) mg/dL Total Bilirubin (0.2-1.0) mg/dL AST (15-37) U/L ALT (12-78) U/L Alkaline Phosphatase (45-117) U/L Troponin I (0.02-0.05) ng/mL B-Natriuretic Peptide (0-100) pg/mL Total Protein (6.4-8.2) g/dL Albumin (3.4-5.0) g/dL Imaging Data Radiologist's impression: Chest X-Ray 06/29/18 21:52 CONCLUSION: Worsening volume loss and patchy consolidation of the right lung including a somewhat masslike area in the region of the right hilum. Right hemidiaphragm is now elevated. CT pulmonary angiogram is pending. Chest CTA 06/29/18 21:53 CONCLUSION: 1. Positive for pulmonary embolism, especially on the left side. 2. Metastatic lung disease with multiple bilateral pulmonary nodules and conglomerate masslike consolidation in the right upper lobe measuring up to 5 cm in diameter. Reported history of lung carcinoma. There is AP window, bilateral hilar and subcarinal adenopathy. 3. Moderate right effusion with compressive atelectasis on the right. 4. [id number] in superior vena cava. 5. Compared with PET scan from May 09, 2018 there is progression of metastatic lung disease, adenopathy and right pleural effusion. Lung cancer, right pleural effusion, left PE. Discharge Plan Discharge Disposition Patient Disposition: 30 Still Patient Physicians Team ED Provider: Brendan Steinberg Primary Care Provider: Juan Guerrero Attending Provider: Rick Nielsen ED Status: Admitted Patient
--- NOTE | 2018-06-30 01:03 | P.PCN ---
Date of procedure: 06/29/18 Pre-op diagnosis: Right pleural effusion Post-op diagnosis: same Procedure: Date of procedure: 06/29/2018 Procedure: Right sided thoracentesis, ultrasound-guided Indication: Right pleural effusion Operators: Rick Nielsen M.D. Details of procedure: Informed consent was obtained from patient. The patient was laid supine with head of bed elevated approximately 30. The pleural effusion was localized with ultrasound device. The lateral chest wall was cleaned with ChloraPrep twice. Regional sterile drapes were applied. Other barrier precautions included sterile gloves and face mask. 1% lidocaine was used for local anesthesia. A skin incision was made with a scalpel blade. An 18 gauge introducer needle was inserted into the pleural space with return of serosanguineous fluid, an 8 FR catheter was advanced, and the needle was removed. Approximately 1500 mL of fluid was removed and sent for analysis and cultures. The catheter was removed and hemostasis was achieved by direct pressure. The site was cleansed with an alcohol swab and a Band-Aid was applied. Estimated blood loss: 1 cc Complications: None immediately apparent. Stat chest x-ray was ordered.
--- NOTE | 2018-06-30 01:04 | XR ---
EXAM DATE: 06/30/2018 12:58 AM EST AGE/SEX: 57 years / Male INDICATIONS: Post right thoracentesis. CLINICAL DATA: This is the patient's initial encounter. Patient reports that signs and symptoms have been present for 1 day and indicates a pain score of 0/10. MEDICAL/SURGICAL HISTORY: . Carcinoma, lung. None. COMPARISON: [facility] [place], CHEST 1V SINGLE AP, 06/29/2018. . FINDINGS: Status post right thoracentesis with decrease in right pleural fluid. No pneumothorax. Improved airsp jay disease at the right lung base. Reticular nodular pattern in the lungs. CONCLUSION: Right thoracentesis with near complete resolution of right pleural effusion and improved right-sided airspace disease. [id number] tip in superior vena cava. Electronically signed by: Toi Rodriguez MD 06/30/2018 1:02 AM EST
[2018-06-30] MEDS: Sod Chloride 0.9% Inj 1,000 ML IV.CONT SCH ×2 (01:30→15:00)
[2018-06-30 01:34] LABS: Total Protein,Pleural Fluid 3.9 gm/dL
[2018-06-30] MEDS ORDERED: Heparin 10,000 UNITS/10 ML Vial (for IV use) IV.PUSH PRN ×2 (02:00)
[2018-06-30 02:21] LABS: RBC,Pleural Fluid 14040 /mm3 (0-0)
[2018-06-30 02:28] LABS: Lymphocytes,Pleural Fluid 21 %; Mesothelial,Pleural Fluid 31 %; Monocytes,Pleural Fluid 6 %; Neutrophils,Pleural Fluid 36 %
[2018-06-30] MEDS ORDERED: Chlorhexidine Gluconate 2% 1 Pack (2 Cloths) TOPICAL PRN (04:00)
[2018-06-30] MEDS: Chlorhexidine Gluconate 2% 1 Pack (2 Cloths) TOPICAL SCH (05:20)
[2018-06-30 08:41] LABS: Baso # (Auto) 0.1 th/mm3 (0.0-0.2); Baso % (Auto) 0.6 % (0.0-2.0); Eos # (Auto) 0.1 th/mm3 (0.0-0.4); Eos % (Auto) 0.9 % (0.0-4.0); Hematocrit 31.2 % (39.0-51.0); Hemoglobin 10.4 gm/dL (13.0-17.0); Lymph # (Auto) 1.4 th/mm3 (1.0-4.8); Lymph % (Auto) 12.3 % (9.0-44.0); Mean Corpuscular HGB Conc 33.2 % (32.0-36.0); Mean Corpuscular Hemoglobin 30.9 pg (27.0-34.0); Mean Corpuscular Volume 92.9 fL (80.0-100.0); Mean Platelet Volume 6.4 fL (7.0-11.0); Mono # (Auto) 0.9 th/mm3 (0.0-0.9); Mono % (Auto) 7.9 % (0.0-8.0); Neut # (Auto) 8.6 th/mm3 (1.8-7.7); Neut % (Auto) 78.3 % (16.0-70.0); Platelet Count 202 th/mm3 (150-450); Red Blood Count 3.36 mil/mm3 (4.50-5.90); Red Cell Distribution Width 14.3 % (11.6-17.2)
--- NOTE | 2018-06-30 08:43 | XR ---
EXAM DATE: 06/30/2018 8:34 AM EST AGE/SEX: 57 years / Male INDICATIONS: Follow up right thoracentesis. CLINICAL DATA: This is the patient's subsequent encounter. Patient reports that signs and symptoms h ave been present for 1 day and indicates a pain score of 0/10. MEDICAL/SURGICAL HISTORY: Carcinoma, lung. None. COMPARISON: . FINDINGS: Right chest port is stable. Interval increase in confluence of right lung infiltrate. Patchy intersti tial infiltrate on the left is grossly stable. Cardiac contours are unchanged. CONCLUSION: Slight worsening in aeration Electronically signed by: Nicolas Boyce MD 06/30/2018 8:42 AM EST
[2018-06-30 08:51] LABS: Activated Partial Thrombo Time 42.6 sec (23.4-31.7); INR 1.4 Ratio; Prothrombin Time 14.6 sec (9.8-11.6)
[2018-06-30] MEDS: Folic Acid 1 MG Tablet PO SCH (08:55)
[2018-06-30] MEDS: Senna/Docusate Sodium 8.6/50 MG Tablet PO SCH ×2 (08:55→21:04)
[2018-06-30] MEDS: Pantoprazole Inj 40 MG Vial IV.PUSH SCH (08:55)
[2018-06-30] MEDS: Insulin NovoLOG Aspart Correctional Sugar Inj SQ SCH ×3 (08:55→18:05)
[2018-06-30 09:15] LABS: Alanine Aminotransferase 27 U/L (12-78); Albumin 2.3 g/dL (3.4-5.0); Anion Gap 11 meq/L (5-15); Aspartate Aminotransferase 39 U/L (15-37); Blood Urea Nitrogen 14 mg/dL (7-18); Calcium 7.8 mg/dL (8.5-10.1); Carbon Dioxide 25.5 meq/L (21.0-32.0); Chloride 107 meq/L (98-107); Glomerular Filtration Rate Greater Than 89 mL/min (>89); Glucose,Random 88 mg/dL (74-106); Potassium 3.5 meq/L (3.5-5.1); Sodium 143 meq/L (136-145)
[2018-06-30 09:18] LABS: Alkaline Phosphatase 82 U/L (45-117); Phosphorus 2.9 mg/dL (2.5-4.9); Total Protein 5.7 g/dL (6.4-8.2)
--- NOTE | 2018-06-30 10:25 | P.PNCC ---
Subjective Subjective Remarks/Hospital Course: This is a 57-year-old male. Admission 06/29/2018 the past medical history includes stage IV adenocarcinoma of the lung. This was diagnosed in 2012 was admitted with a large malignant pericardial effusion/right pleural effusion pulmonary embolism. He had a pericardiocentesis revealed poorly differentiated adenocarcinoma with malignant cells that were negative for EGFR and ALK. He received carbo, Taxol and Avastin maintenance times radiation of the right lung. He did well until 08/25 when developed seen a large mass in the right anterior forearm. This showed multiple pulmonary masses and axillary lymph nodes. MRI of the brain was negative. Needle biopsy of the right axilla revealed metastatic poorly differentiated non-small lung cancer. EGFR and ALK negative. PDL1 1% He received 5 cycles of carboplatin, Taxol and abstain. In May 2018 patient had a PET scan. These revealed recurrent disease. He had left supraclavicular adenopathy, mediastinal and axillary adenopathy and bony metastases. Today, patient presented to [facility] with shortness of breath. He has noted progressive shortness of breath over the past week. He is noticed regular in the left lower extremity edema. X-ray revealed a large right pleural effusion and 2 nonocclusive left lower lobe pulmonary embolus. Two- point centimeter bilateral hilar soft carinal lymph nodes. Right upper lobes 5 cm mass. Large right pleural effusion. Pulmonary nodules. Thoracentesis was done in the ED which removed 1500 cc. Currently on a nonrebreather satting 100% . Follow-up chest x-ray revealed no signs of pneumothoraces. SUBJ 06/30: Appears comfortable after thoracentesis. Currently on facemask with good oxygen saturation. Chest x-ray today shows no significant effusion but right-sided interstitial infiltrates and bibasilar infiltrate. Therapeutic on IV heparin for nonocclusive PE Objective Vital Signs / I&O: Vital Signs 06/29/18 21:46 06/29/18 21:52 06/30/18 00:27 Temperature 98.8 F Pulse Rate 110 H 111 H 100 H Respiratory Rate 30 H 24 Blood Pressure 154/86 H 130/77 Pulse Oximetry 96 97 95 06/30/18 00:32 06/30/18 00:37 06/30/18 00:51 Temperature Pulse Rate 100 H 100 H 98 H Respiratory Rate 22 20 28 H Blood Pressure 131/80 129/80 Pulse Oximetry 98 100 06/30/18 00:52 06/30/18 01:00 06/30/18 01:19 Temperature 97.8 F Pulse Rate 98 H 92 H 93 H Respiratory Rate 29 H 27 H 22 Blood Pressure 121/72 116/69 Pulse Oximetry 100 97 06/30/18 01:38 06/30/18 02:00 06/30/18 03:00 Temperature Pulse Rate 101 H 97 H Respiratory Rate 22 26 H Blood Pressure 120/74 112/70 Pulse Oximetry 98 100 97 06/30/18 03:32 06/30/18 04:00 06/30/18 05:00 Temperature Pulse Rate 96 H 93 H Respiratory Rate 25 H 22 Blood Pressure 114/69 111/71 Pulse Oximetry 96 96 96 06/30/18 06:00 06/30/18 07:00 06/30/18 07:45 Temperature Pulse Rate 91 H 92 H 94 H Respiratory Rate 26 H 26 H 16 Blood Pressure 110/67 119/68 Pulse Oximetry 96 95 98 06/30/18 08:00 06/30/18 09:00 06/30/18 09:01 Temperature 98.5 F Pulse Rate 101 H 108 H 108 H Respiratory Rate 21 37 H 31 H Blood Pressure 113/67 117/82 Pulse Oximetry 91 L 86 L 89 L Intake & Output 06/29/18 06/30/18 06/30/18 18:59 06:59 18:59 Intake Total 120 / 120 Output Total 300 / 300 Balance -180 / -180 Weight 67.2 kg Intake: IV 100 / 100 Flexbumin 25% Inj 100 ML @ 60 100 / 100 mls/hr IV.SIG ONCE ONE Rx#: [id number] Oral 20 / 20 Output: Urine 300 / 300 Other: Weight On Admission 67 kg Result Diagrams: 06/30/18 08:24 06/30/18 08:24 Objective Remarks: - Constitutional No significant distress - Routine HEENT Exam Head: Present: normocephalic, atraumatic Eye: Present: PERRL, normal accommodation ENT: Present: mucous membranes moist - Routine Neck Exam Present: supple, full ROM. Absent: JVD, carotid bruit - Routine Chest/Breast/Axilla Exam Chest wall: Absent: tenderness - Routine Respiratory Exam Present: decreased breath sounds, diminished air movement. No accessory muscle use - Routine Cardiovascular Exam Present: RRR, S1, S2. Absent: murmur - Routine Abdominal Exam Present: soft, normoactive bowel sounds - Routine Skin Exam Present: intact. Absent: cyanosis - Routine Neurological Exam Present: alert, oriented X3, CN II-XII intact. Absent: sensory deficit, motor deficit Assessment and Plan - Problem List (1) Recurrent right pleural effusion Code(s): J90 - Pleural effusion, not elsewhere classified Status: Acute (2) Adenocarcinoma of lung, stage 4 Code(s): C34.90 - Malignant neoplasm of unspecified part of unspecified bronchus or lung Status: Chronic (3) Leukocytosis Code(s): D72.829 - Elevated white blood cell count, unspecified Status: Acute (4) Normocytic anemia Code(s): D64.9 - Anemia, unspecified Status: Chronic (5) Hypothyroidism Code(s): E03.9 - Hypothyroidism, unspecified Status: Acute (6) Elevated INR Code(s): R79.1 - Abnormal coagulation profile Status: Acute (7) Pulmonary embolus Code(s): I26.99 - Other pulmonary embolism without acute cor pulmonale Status : Acute (8) Hypoalbuminemia Code(s): E88.09 - Other disorders of plasma-protein metabolism, not elsewhere classified Status: Acute - Assessment and Plan Plan: Neuro/Psych: Acetaminophen 650 mg p.o. every 6 hours as needed fever Hydrocodone/acetaminophen tablet every 4 hours as needed pain 1 through 5 Morphine sulfate 2 g IV every 2 hours as needed pain 6 through 10 MRI of brain ordered to rule out brain mass being anticoagulated-pending at this time. Negative MRI brain 08/25. CV: Elevated troponin F/u 2D echocardiogram and follow-up on EKG. Recheck troponin at 0800 hrs. today Currently not requiring vasopressors and/or antihypertensives On normal saline at 84 cc an hour Troponin elevation most likely secondary to PE, continue IV heparin Resp: Acute left lower lobe pulmonary embolism Right pleural effusion likely malignant CT pulmonary revealed 2.7 cm bilateral hilar and subcarinal lymph nodes. Right upper lobe lung mass 5 cm. Large right pleural effusion. Multiple lymph nodes. Left lower lobe pulmonary embolism. Post thoracentesis serosanguineous 1500 cc. Follow-up portable chest x-ray revealed no pneumothorax FM to maintain saturations greater than equal 92% Incentive spirometry while awake Follow-up on chest x-ray in a.m. 06/30 Continue IV heparin GI: Hypoalbuminemia Advance diet as tolerated Pantoprazole for GI prophylaxis Docusate sodium/senna 1 tablet twice daily for bowel regimen Endo: Hypothyroidism Sliding scale insulin Accu-Cheks to maintain euglycemia aspart insulin every 6 hours Continue levothyroxine 25 mcg daily Renal: Creatinine currently within normal limits Monitor urine output Accurate I's and O's Heme: Stage IV adenocarcinoma lung Non-small cell carcinoma lung Leukocytosis Normocytic anemia Elevated INR Dr. Cabrera consulted. Currently on heparin drip for pulmonary embolism. Recheck CBC daily. Follow trends. ID: Monitors for signs and symptomatology of infection FEN: Replace electrolytes as clinically indicated for ICU electrolyte protocol MSK: PT evaluate and treat Access -. Peripheral IV. Can use Port-A-Cath if needed right-sided. Central line if indicated Prophylaxis - -GI pantoprazole - -DVT heparin drip. Check lower extremity Dopplers prior to SCDs Level 2 Consult hospitalist to assume care in a.m. Transfer to [facility] with telemetry (2) Adenocarcinoma of lung, stage 4 Qualifiers: Laterality: unspecified laterality Qualified Code(s): C34.90 - Malignant neoplasm of unspecified part of unspecified bronchus or lung (3) Leukocytosis Qualifiers: Leukocytosis type: unspecified Qualified Code(s): D72.829 - Elevated white blood cell count, unspecified (5) Hypothyroidism Qualifiers: Hypothyroidism type: unspecified Qualified Code(s): E03.9 - Hypothyroidism, unspecified (7) Pulmonary embolus Qualifiers: Pulmonary embolism type: other Chronicity: acute Acute cor pulmonale presence: without acute cor pulmonale Qualified Code(s): I26.99 - Other pulmonary embolism without acute cor pulmonale
--- NOTE | 2018-06-30 12:06 | US ---
EXAM DATE: 06/30/2018 11:52 AM EST AGE/SEX: 57 years / Male INDICATIONS: Bilateral leg edema. CLINICAL DATA: This is the patient's initial encounter. Patient reports that signs and symptoms have been present for 4 - 6 days and indicates a pain score of 0/10. MEDICAL/SURGICAL HISTORY: Hypothyroidism. Carcinoma, lung. Pulmonary embolism. . Pericardioce ntesis. Port-A-Cath. [place] [facility] [place] [facility] [place] VEN[place]PL[place]/17/2012. . TECHNIQUE: Venous ultrasound of both lower extremities was performed from the inguinal ligament to t he proximal calf. Real-time, color Doppler and spectral tracing, compression and augmentation techni ques were used. FINDINGS: Right Leg: The right common femoral vein is easily compressible and free of intraluminal thrombus. T he distal superficial femoral vein and popliteal vein are incompletely compressible and contain the p resence of nonocclusive thrombus. The right peroneal and posterior tibial vein of the right calf demo nstrates occlusive thrombus. Left Leg: Nonocclusive thrombus is identified in the distal superficial femoral vein. The popliteal vein is noncompressible and there is no evidence of flow. No flow is documented in the proximal calf veins. Other: None. CONCLUSION: 1. Bilateral DVT 2. Nonocclusive thrombus is identified in both superficial femoral veins and right popliteal vein. 3. Occlusive thrombus is identified in the left popliteal vein and both proximal calves. Electronically signed by: Sharif Alvarez MD 06/30/2018 12:04 PM EST
--- NOTE | 2018-06-30 13:45 | P.DIET ---
Nutritional Evaluation Type of nutrition evaluation: initial Nutrition consult regarding: Diet Evaluation Nutrition screening: Weight Loss > 10 lbs Screening comments: 06/30 WLS Objective - Diagnosis PE, hypoxia, pleural effusion - Objective Body Mass Index: 24.7 % IBW: 109 (IBW: 136lb) Body Weight Used for Calculations: Actual Energy Needs - Lower Range (kCal/kg): 22 Energy Needs - Upper Range (kCal/kg): 28 Lower Limit kCal/kg (kCals): 1,478 Upper Limit kCal/kg (kCals): 1,882 Lower Limit Protein Factor (Grams per Kg): 1.1 Upper Limit Protein Factor (Grams per Kg): 1.3 Lower Protein Needs (Protein): 74 Upper Protein Needs (Protein): 87 Dietitian Reviewed in Medical Record: Current diet, Curent medications, Intake & Output, Labs, Medical history Diet Order: Clear liquid diet Oral Diet Intake Amount: Poor <50% Objective Comments: PMH: hypothyroid, lung CA, PE Labs: Cr 0.54, POC glucose 136, Ca+ 7.8 Assessment Assessment: Pt currently at nutritional risk r/t reported unplanned wt loss. Pt currently on clear liquid diet and eating around 25% for meals. Diet will be advanced soon per GI. Will continue to assess pts nutritional needs for a PO supplement. Monitor PO intake, tolerance and diet advancement. Labs reviewed, dietitian following. Recommendations: 1. Will continue to assess pts nutritional needs for a PO supplement 2. Monitor PO intake, tolerance and diet advancement 3. Dietitian following Dietitian to Monitor: Lab values, Intake & Output, Diet tolerance, Weight change , PO Intake, Medical course
[2018-06-30] MEDS ORDERED: Gadobutrol PF 7.5 MMOL/7.5 ML Vial (for RAD) IV.SIG ONE (14:10)
--- NOTE | 2018-06-30 14:35 | MR ---
EXAM DATE: 06/30/2018 2:18 PM EST AGE/SEX: 57 years / Male INDICATIONS: . Lung cancer with brain mets. CLINICAL DATA: This is the patient's subsequent encounter. Patient reports that signs and symptoms h ave been present for 3 days and indicates a pain score of 3/10. MEDICAL/SURGICAL HISTORY: Carcinoma, lung. Hypothyroidism. . port placed COMPARISON: [facility], MR BRAIN W AND W/O CONTRAST, 08/17/2017. . TECHNIQUE: Multiplanar, multisequence examination of the brain was performed without and with 6.5 ml Gadavist (gadobutrol) contrast as a single exam dose. FINDINGS: Cerebrum: Two moderate-sized rim-enhancing heterogeneous masses have developed in the right temporal lobe. The largest is located in the region of the amygdala and measures 2.2 cm. The second is locate d in the posterior medial left temporal lobe and measures 1.5 cm. Additional enhancing lesions are id entified in both cerebral hemispheres which are subcentimeter in size. White Matter: No significant signal abnormalities are seen in the white matter. Posterior Fossa: A single enhancing lesion is noted centrally in the right cerebellum. Diffusion Imaging: The right posterior temporal lobe lesion demonstrates mild restricted diffusion. There is a small lesion in left cerebellum exhibiting mild restricted diffusion. There is no evidence of restricted diffusion indicative of infarct. Extracranial: The visualized portions of the orbits and paranasal sinuses are unremarkable. Post Contrast: There are no extra-axial enhancing lesions. CONCLUSION: 1. Bilateral cerebral and right cerebellar enhancing lesions characteristic of metastatic disease. L argest lesions and measurements are given above. 2. No evidence of acute infarct or hemorrhage. 3. No significant mass effect or shift of midline structures. Electronically signed by: Sharif Alvarez MD 06/30/2018 2:34 PM EST
[2018-06-30 15:05] LABS: ABG Base Excess 0.9 mmol/L (-2-2); ABG PCO2 33 mmHg (38-42); ABG PO2 69 mmHG (61-120)
--- NOTE | 2018-06-30 16:04 | ECHRPT ---
Indication: heart failure CONCLUSIONS Normal left ventricular size. Wall thickness is normal. The left ventricular systolic function is normal with an estimated ejection fraction in the range of 55-60%. Possible diastolc collapse of the right atrium in systole suggesting possible tamponade. Trace mitral valve regurgitation. The estimated pulmonary arterial pressure is 45 mmHg. There is a small pericardial effusion present. The possibility of hemodynamic compromise cannot be excluded on the basis of the available images. Clinical correlation is recommended.. . BP: / HR: Rhythm: MEASUREMENTS (Male / Female) Normal Values Technical Quality: 2D ECHO LV Diastolic Diameter PLAX 4.3 cm 4.2 - 5.9 / 3.9 - 5.3 cm LV Systolic Diameter PLAX 3.2 cm IVS Diastolic Thickness 0.9 cm 0.6 - 1.0 / 0.6 - 0.9 cm LVPW Diastolic Thickness 1.1 cm 0.6 - 1.0 / 0.6 - 0.9 cm LV Relative Wall Thickness 0.5 RV Internal Dim ED PLAX 2.8 cm LVOT Diameter 2.1 cm Aortic Root Diameter 2.6 cm LA Systolic Diameter LX 2.9 cm 3.0 - 4.0 / 2.7 - 3.8 cm LV Ejection Fraction MOD 4C 66.7 % LV Ejection Fraction 4C AL 68.1 % M-MODE Aortic Root Diameter MM 3.6 cm LA Systolic Diameter MM 3.4 cm LA Ao Ratio MM 0.9 AV Cusp Separation MM 2.4 cm DOPPLER AV Peak Velocity 142.0 cm/s AV Peak Gradient 8.1 mmHg LVOT Peak Velocity 103.0 cm/s LVOT Peak Gradient 4.2 mmHg AV Area Cont Eq pk 2.5 cm Mitral E Point Velocity 76.0 cm/s Mitral A Point Velocity 73.5 cm/s Mitral E to A Ratio 1.0 LV E' Lateral Velocity 6.7 cm/s Mitral E to LV E' Lateral Ratio 11.3 LV E' Septal Velocity 11.1 cm/s Mitral E to LV E' Septal Ratio 6.8 TR Peak Velocity 295.0 cm/s TR Peak Gradient 34.8 mmHg Right Atrial Pressure 10.0 mmHg Pulmonary Artery Systolic Pressu 44.8 mmHg Right Ventricular Systolic Press 44.8 mmHg PV Peak Velocity 107.0 cm/s PV Peak Gradient 4.6 mmHg FINDINGS LEFT VENTRICLE Normal left ventricular size. Wall thickness is normal. The left ventricular systolic function is normal with an estimated ejection fraction in the range of 55-60%. RIGHT VENTRICLE Normal right ventricular size and systolic function. LEFT ATRIUM The left atrial size is normal. RIGHT ATRIUM Possible collapse of the right atrium in systole. ATRIAL SEPTUM Normal atrial septal thickness without atrial level shunting by limited color doppler interrogation. AORTA The aortic root and proximal ascending aorta are normal in size on limited imaging. MITRAL VALVE Trace mitral valve regurgitation. AORTIC VALVE Trileaflet aortic valve. No aortic valve stenosis or regurgitation. TRICUSPID VALVE The estimated pulmonary arterial pressure is 45 mmHg. PULMONARY VALVE No pulmonary valve regurgitation or stenosis. VESSELS The inferior vena cava is normal in size. PERICARDIUM There is a small pericardial effusion present. The possibility of hemodynamic compromise cannot be excluded on the basis of the available images. Clinical correlation is recommended.. There is systolic collapse of the right atrium possible pre tampanode. Anastacio Ellsworth MD, FACC, [facility] [place] (Electronically Signed) Final Date:30 June 2018 16:03
--- NOTE | 2018-06-30 16:41 | MB ---
cc: Mingo Marquez MD DATE: 06/30/2018 REASON FOR CONSULTATION: Metastatic lung CA with pulmonary infiltrate. HISTORY OF PRESENT ILLNESS: This is a 57-year-old white male with a prior history of stage IV adenocarcinoma of the right lung. He has previously been treated with immunotherapy as well as chemotherapy. Patient was initially diagnosed in 2012 and was doing fairly well. Apparently he has had previous history of a malignant pericardial effusion and was treated with carboplatin, Taxol, and Avastin, as well as radiation therapy to the right lung mass. He had done well up until August of this year, at which time he developed a large mass in the right forearm and several pulmonary masses as well as axillary nodes. The patient was diagnosed to have a poorly differentiated non-small cell lung cancer, EGFR and ALK negative, EL1 at 1%. He then received carboplatin and Taxol. A PET scan was done last month, which showed recurrent disease. The patient was experiencing shortness of breath this past week. Upon arrival in the hospital, he was noted to have a large right pleural effusion as well as a left lower lobe pulmonary embolus, nonocclusive. He has not been started on anticoagulation and had a thoracentesis done on the right side with removal of over 1500 mL of serosanguineous fluid. Cytology is pending. No evidence of pneumothorax. The patient is presently on oxygen at 5 liters nasal cannula. Complains of some tightness in his chest and wheezing, but denies any hemoptysis. He does have a cough and some epigastric distress. No fevers or chills. PAST MEDICAL HISTORY: As mentioned before, significant for non-small cell carcinoma of the right lung and history of COPD, previous history of pericardiocentesis for pericardial effusion. HABITS: The patient smoked 1 pack per day for over 25 years, quit 9 years ago. Alcohol use minimal. ALLERGIES: NO DRUG ALLERGIES ARE LISTED. FAMILY HISTORY: Noncontributory. REVIEW OF SYSTEMS: Reveals the patient has weakness, weight loss, dizziness, shortness of breath, cough and orthopnea. No leg swelling. No abdominal pain. No urinary symptoms. No skin lesions. He has some anxiety. PHYSICAL EXAMINATION: GENERAL: This averagely built, middle-aged, white male is lying flat. He is on nasal cannula oxygen at 5 liters. Blood pressure is 120/70, pulse is 95, respirations 20, temperature 97.6. HEENT: Head is normocephalic. Pupils are reactive and equal. Tongue moist. Nasal mucosa edematous. Throat is mildly injected. NECK: Supple. No bruits. No venous distention. No thyromegaly. CHEST: Equal movements. Breath sounds diminished over the right mid and lower chest with occasional crackles scattered over the right lung field and scattered wheezes bilaterally. HEART: Sounds are irregular, S1, S2 with no murmur. ABDOMEN: Soft, scaphoid, without masses. No organomegaly or tenderness. Bowel sounds are active. EXTREMITIES: No edema. Peripheral pulses are well felt. Reflexes are 1+ with no gross motor deficits. Cranial nerves are grossly intact. SKIN: No lesions observed. IMPRESSION: 1. Large right pleural effusion, probable malignant effusion. 2. Pulmonary embolism with hypoxemia. 3. Adenocarcinoma of the lung, stage IV. 4. Anemia. 5. Hypothyroidism. 6. Chronic obstructive pulmonary disease. PLAN: The patient has been placed on O2 at 5 liters and wean down to keep saturations over 92. Nebulized albuterol and Atrovent solution will be added every 4 hours. He will be continued on heparin drip as ordered. The patient will also be placed on Zithromax 500 mg IV daily. We will get a followup chest x-ray. He was placed on Solu-Medrol 40 mg every 8 hours for 2 days. An oncology consultation has been requested. The patient will need home oxygen upon discharge, and we will arrange for the same. In case the pleural effusion recurs, a PleurX catheter may be appropriate prior to his discharge. Thank you, Dr. Nielsen, for this consultation. MD VIDYA Celaya/antoni , 03:04 PM , 03:20 PM
[2018-06-30] MEDS: Azithromycin Inj 500 MG in Sodium Chlor 0.9% Inj 250 ML IV.SIG SCH (17:18)
--- NOTE | 2018-06-30 17:34 | ECG ---
Date Performed: 06/29/2018 Time Performed: 21:49:03 PTAGE: 57 years EKG: SINUS TACHYCARDIA INDETERMINATE AXIS LOW QRS VOLTAGE IN EXTREMITY LEADS ABNORMAL ECG PREVIOUS TRACING 09/16/12 @13.27 Since the previous tracing, no significant change noted DOCTOR: Brendan Feliz Interpretating Date/Time 06/30/2018 17:31:52
[2018-06-30] MEDS: Heparin Drip 25,000 UNIT/250 ML BAG IV.CONT PRN (21:03)
[2018-06-30] MEDS: MethylPREDNISolone Sod Succinate Inj 40 MG/ML Vial IV.PUSH SCH (21:04)
[2018-06-30] MEDS ORDERED: Magnesium Sulfate Inj 2 GM in Sodium Chlor 0.9% Inj 96 ML IV.SIG ONE (22:00)
[2018-07-01] MEDS: Sod Chloride 0.9% Inj 1,000 ML IV.CONT SCH ×2 (00:23→03:00)
[2018-07-01] MEDS: Insulin NovoLOG Aspart Correctional Sugar Inj SQ SCH ×2 (00:23→05:45)
[2018-07-01] MEDS: Chlorhexidine Gluconate 2% 1 Pack (2 Cloths) TOPICAL SCH (04:41)
[2018-07-01] MEDS: MethylPREDNISolone Sod Succinate Inj 40 MG/ML Vial IV.PUSH SCH ×3 (05:45→21:35)
[2018-07-01 07:09] LABS: Hematocrit 30.1 % (39.0-51.0); Hemoglobin 10.6 gm/dL (13.0-17.0); Mean Corpuscular HGB Conc 35.1 % (32.0-36.0); Mean Corpuscular Hemoglobin 31.8 pg (27.0-34.0); Mean Corpuscular Volume 90.5 fL (80.0-100.0); Mean Platelet Volume 6.5 fL (7.0-11.0); Platelet Count 267 th/mm3 (150-450); Red Blood Count 3.32 mil/mm3 (4.50-5.90); Red Cell Distribution Width 14.3 % (11.6-17.2); White Blood Count 10.6 th/mm3 (4.0-11.0)
[2018-07-01] MEDS: Senna/Docusate Sodium 8.6/50 MG Tablet PO SCH ×2 (08:45→21:35)
[2018-07-01] MEDS: Folic Acid 1 MG Tablet PO SCH (08:45)
[2018-07-01] MEDS: Pantoprazole Inj 40 MG Vial IV.PUSH SCH (08:45)
--- NOTE | 2018-07-01 09:42 | P.PNIM ---
Subjective Interval history: no new complaints hungry. wants to try solid food. Physical Exam Vital signs: Last Vital Signs Temp 97.4 F L 07/01/18 03:00 Pulse 96 H 07/01/18 07:55 Resp 22 07/01/18 07:55 BP 124/67 07/01/18 03:00 Pulse Ox 91 L 07/01/18 03:00 Narrative: heart reg lung bew baslar crackles abd s/nt ext no edema Results Labs CBC & Chem 7: 07/01/18 05:43 06/30/18 22:17 Assessment and Plan Assessment (1) Adenocarcinoma of lung, stage 4: Code(s): C34.90 - Malignant neoplasm of unspecified part of unspecified bronchus or lung Status: Chronic (2) Pulmonary embolus: Code(s): I26.99 - Other pulmonary embolism without acute cor pulmonale Status: Acute (3) Recurrent right pleural effusion: Code(s): J90 - Pleural effusion, not elsewhere classified Status: Acute (4) Normocytic anemia: Code(s): D64.9 - Anemia, unspecified Status: Chronic (5) Hypothyroidism: Code(s): E03.9 - Hypothyroidism, unspecified Status: Acute (6) Hypoalbuminemia: Code(s): E88.09 - Other disorders of plasma-protein metabolism, not elsewhere classified Status: Acute Plan Pt with stage 4 adenocarcinoma presents with respiratory distress found to have a large right pleural effusion. 1500ml thoracentesis left lung pulmonary emboli areas of groundglass and consolidation bilaterally lung 2d echo. EF 55%, ?tamponade or collapse of right atrium per official reading. pulmonology and oncology following on 6lnc wean down. on steroids/nebs/abx per pulmonary heparin gtt. discuss choice of anticoagulant to convert with oncology. advance diet. oob with PT f/u pending studies. Progress Note: Quality VTE Deep Vein Thrombosis/Pulmonary Embolism Present on Admission: Yes _ (1) Adenocarcinoma of lung, stage 4 Qualifiers: Laterality: unspecified laterality Qualified Code(s): C34.90 - Malignant neoplasm of unspecified part of unspecified bronchus or lung (2) Hypothyroidism Qualifiers: Hypothyroidism type: unspecified Qualified Code(s): E03.9 - Hypothyroidism, unspecified (3) Pulmonary embolus Qualifiers: Pulmonary embolism type: other Chronicity: acute Acute cor pulmonale presence: without acute cor pulmonale Qualified Code(s): I26.99 - Other pulmonary embolism without acute cor pulmonale
--- NOTE | 2018-07-01 13:09 | P.PNONC ---
Subjective Interval history: Patient awake and alert, in no acute distress. We have discussed his test results, he reports last treatment 3 weeks ago with an appointment scheduled with Dr. Cabrera yesterday, which had to be canceled as he was hospitalized. Discussed MRI results. Denies any shortness of breath or pain. Denies bleeding. Continues on heparin drip. Objective Vital Signs/Intake & Output: Vital Signs 06/30/18 13:00 06/30/18 14:27 06/30/18 14:35 Temperature Pulse Rate 116 H 102 H 99 H Respiratory Rate 45 H 21 Blood Pressure 112/66 119/69 Pulse Oximetry 90 L 91 L 94 L 06/30/18 15:00 06/30/18 15:27 06/30/18 16:00 Temperature Pulse Rate 98 H 100 H 113 H Respiratory Rate 24 20 27 H Blood Pressure 127/70 120/71 Pulse Oximetry 95 93 L 06/30/18 17:00 06/30/18 18:00 06/30/18 19:00 Temperature 99.9 F H Pulse Rate 110 H 117 H 117 H Respiratory Rate 25 H 21 22 Blood Pressure 124/74 131/80 141/84 H Pulse Oximetry 94 L 95 92 L 06/30/18 20:00 06/30/18 20:20 06/30/18 21:00 Temperature Pulse Rate 116 H 117 H 130 H Respiratory Rate 20 Blood Pressure Pulse Oximetry 92 L 06/30/18 22:00 06/30/18 23:00 06/30/18 23:56 Temperature 99.3 F Pulse Rate 126 H 122 H 111 H Respiratory Rate 20 18 Blood Pressure 124/62 Pulse Oximetry 93 L 07/01/18 00:00 07/01/18 01:00 07/01/18 02:00 Temperature Pulse Rate 100 H 108 H 94 H Respiratory Rate Blood Pressure Pulse Oximetry 07/01/18 03:00 07/01/18 03:30 07/01/18 04:00 Temperature 97.4 F L Pulse Rate 102 H 92 H 93 H Respiratory Rate 20 18 Blood Pressure 124/67 Pulse Oximetry 91 L 07/01/18 05:00 07/01/18 06:00 07/01/18 07:00 Temperature 97.8 F Pulse Rate 89 64 84 Respiratory Rate 18 Blood Pressure 118/75 Pulse Oximetry 91 L 07/01/18 07:55 07/01/18 08:00 07/01/18 09:00 Temperature Pulse Rate 96 H 74 98 H Respiratory Rate 22 Blood Pressure Pulse Oximetry 98 07/01/18 10:00 07/01/18 11:00 Temperature Pulse Rate 100 H 103 H Respiratory Rate Blood Pressure Pulse Oximetry Intake & Output 06/30/18 07/01/18 07/01/18 18:59 06:59 18:59 Intake Total 1350 / 1350 1840 / 1840 Output Total 700 / 700 350 / 350 Balance 650 / 650 1490 / 1490 Weight 67.1 kg Intake: IV 1000 / 1000 1600 / 1600 Heparin/D5W 25,000 U/250 mL 25, 250 / 250 000 unit In 250 ml @ Per Protocol IV.CONT TITRATE PRN Rx #:[id number] NS Inj 1,000 ML @ 84 mls/hr IV. 1000 / 1000 1000 / 1000 CONT .[id number] [facility] Rx#:[id number] Azithromycin Inj 500 MG In NS 250 / 250 Inj 250 ML @ 250 mls/hr IV.SIG Q24H [facility] Rx#:[id number] Magnesium Sulfate Inj 2 GM In 100 / 100 NS Inj 96 ML @ 50 mls/hr IV.SIG ONCE ONE Rx#:[id number] Oral 350 / 350 240 / 240 Output: Urine 700 / 700 350 / 350 Result Diagrams: 07/01/18 05:43 06/30/18 22:17 Laboratory Results: Laboratory Results - last 24 hr 06/30/18 06/30/18 06/30/18 13:34 14:55 18:05 WBC RBC Hgb Hct MCV MCH MCHC RDW Plt Count MPV APTT 41.6 H Puncture Site Left radial Patient Temperature 98.6 O2 Saturation 93 ABG pH 7.48 H ABG pCO2 33 L ABG pO2 69 ABG HCO3 24 ABG O2 Content 13.4 ABG Base Excess 0.9 ABG Methemoglobin 1.2 Ovidio Test Present Hemoglobin 10.3 L Carboxyhemoglobin 0.9 O2 Delivery Device Nasal cannula Liter Flow 6.00 Critical Value No Potassium POC Glucose 76 TSH 06/30/18 07/01/18 07/01/18 22:17 00:15 05:43 WBC 10.6 RBC 3.32 L Hgb 10.6 L Hct 30.1 L MCV 90.5 MCH 31.8 MCHC 35.1 RDW 14.3 Plt Count 267 D MPV 6.5 L APTT Puncture Site Patient Temperature O2 Saturation ABG pH ABG pCO2 ABG pO2 ABG HCO3 ABG O2 Content ABG Base Excess ABG Methemoglobin Ovidio Test Hemoglobin Carboxyhemoglobin O2 Delivery Device Liter Flow Critical Value Potassium 3.7 POC Glucose 132 H TSH 07/01/18 07/01/18 07/01/18 05:43 05:43 05:43 WBC RBC Hgb Hct MCV MCH MCHC RDW Plt Count MPV APTT 52.5 H D Puncture Site Patient Temperature O2 Saturation ABG pH ABG pCO2 ABG pO2 ABG HCO3 ABG O2 Content ABG Base Excess ABG Methemoglobin Ovidio Test Hemoglobin Carboxyhemoglobin O2 Delivery Device Liter Flow Critical Value Potassium POC Glucose 161 H TSH 0.232 L Culture Results: Microbiology 06/30/18 00:40 Gram Stain - Final Fluid - Pleural fluid Body Fluid Culture - Preliminary No growth in 24 hours 06/30/18 01:25 Aerobic Blood Culture - Preliminary Blood - Peripheral No growth in 1 day Anaerobic Blood Culture - Preliminary No growth in 1 day 06/30/18 01:20 Aerobic Blood Culture - Preliminary Blood - Peripheral No growth in 1 day Anaerobic Blood Culture - Preliminary No growth in 1 day 06/30/18 00:40 Acid Fast Bacilli Smear - Final Abscess - Lung No acid fast bacilli seen 06/30/18 00:40 Fungal Smear - Final Abscess - Lung No fungal elements seen Imaging Studies: Impressions Head MRI 06/30/18 00:00 CONCLUSION: 1. Bilateral cerebral and right cerebellar enhancing lesions characteristic of metastatic disease. Largest lesions and measurements are given above. 2. No evidence of acute infarct or hemorrhage. 3. No significant mass effect or shift of midline structures. Medications: Active Medications Generic Name Dose Route Start Last Admin Trade Name Freq PRN Reason Stop Dose Admin Albuterol 1 ampul 06/30/18 00:00 07/01/18 07:53 Duoneb Neb ([facility]) NEB 1 ampul Q4HR NEB [facility] Administration Chlorhexidine Gluconate 3 pack 06/30/18 04:00 07/01/18 04:41 Chlorhexidine 2% Cloth TOPICAL 07/05/18 03:59 Not Given DAILY@0400 [facility] Folic Acid 1 mg 06/30/18 09:00 07/01/18 08:45 Folic Acid PO 1 mg DAILY [facility] Administration Heparin Sodium/Dextrose 25,000 unit in 250 mls @ 0 mls/hr 06/29/18 21:55 21:03 Heparin/D5w 25,000 U/250 Ml IV.CONT 1,100 units/hr TITRATE PRN 11 mls/hr Per Protocol Administration Protocol Per Protocol Azithromycin 500 mg/ Sodium 250 mls @ 250 mls/hr 06/30/18 15:00 06/30/18 19: 56 Chloride IV.SIG Infused Q24H [facility] Infusion Levothyroxine Sodium 25 mcg 06/30/18 06:00 07/01/18 05:45 Synthroid PO 25 mcg DAILY@0600 [facility] Administration Methylprednisolone Sodium Succinate 40 mg 06/30/18 22:00 07/01/18 05:45 Solumedrol Inj IV.PUSH 40 mg Q8HR [facility] Administration Morphine Sulfate 2 mg 06/29/18 23:43 06/30/18 21:23 Morphine Inj IV.PUSH 2 mg Q2H PRN Administration PAIN SCALE 6 TO 10 Senna/Docusate Sodium 1 tab 06/30/18 09:00 07/01/18 08:45 Janette-Colace PO Not Given BID [facility] Sodium Chloride 2 ml 06/30/18 09:00 07/01/18 08:45 Ns Flush IV.FLUSH 2 ml BID [facility] Administration Objective Remarks: GENERAL: Well-nourished, well-developed male patient, in no acute distress. SKIN: Warm and dry. HEAD: Normocephalic. EYES: No scleral icterus. No injection or drainage. NECK: Supple, trachea midline. CARDIOVASCULAR: Regular rate and rhythm without murmurs. RESPIRATORY: Diminished right base. No accessory muscle use. GASTROINTESTINAL: Abdomen soft, non-tender, nondistended. EXTREMITIES: No cyanosis, or edema. MUSCULOSKELETAL: Adequate muscle tone. NEUROLOGICAL: No obvious focal deficit. Awake, alert, and oriented x3. PSYCHIATRIC: Appropriate mood and affect; insight and judgment normal. Assessment/Plan - Plan Mr. Ross is a 57-year-old gentleman with stage IV lung cancer. He was originally diagnosed in 2012, he received carbo, Taxol and Avastin and radiation to the right lung. He was doing well until August 2017, when he developed a large mass in the right anterior forearm, multiple pulmonary masses and axillary lymph nodes. Needle biopsy of the right axilla revealed metastatic poorly differentiated non-small cell lung cancer, EGFR ALK negative. PDL-1 1%. He received 5 cycles of carboplatin, Taxol and Avastin. In May 2018, he had a PET scan which revealed recurrent disease. He had left supraclavicular adenopathy, mediastinal and axillary adenopathy and bony metastasis. He reports his last treatment was 21 days ago with immunotherapy, under the direction of Dr. Cabrera. He is currently admitted to the hospital for shortness of breath, patient found to have large right pleural effusion, thoracentesis done in the ED removed 1500 mL. Patient also found to have PE and DVT. Recommendations: 1. Metastatic poorly differentiated non-small cell lung cancer, MRI head revealed bilateral cerebral and right cerebellar enhancing lesions characteristic of metastatic disease. Largest lesions measuring 2.2 cm and 1.5 cm, additional subcentimeter lesions noted. No evidence of acute infarct or hemorrhage. No significant mass-effect or shift of midline structures. Chemotherapy outpatient with carbo, pemetrexed. 2. Pulmonary embolism and bilateral DVTs, currently on heparin drip. No bleeding noted. Recommend continued anticoagulation as long as no bleeding and brain lesions. Recommend bridge to Lovenox and then in a few months we will consider switching to NOAC. 3. MRI revealing characteristic metastatic disease, will consult radiation oncology. Continue anticoagulation as long as no bleeding and lesions in brain. Continue steroids. - Attending Statement The exam, history, and the medical decision-making described in the above note were completed with the assistance of the mid-level provider. I reviewed and agree with the findings presented. I attest that I had a [id number] encounter with the patient on the same day, and personally performed and documented my assessment and findings in the medical record. His disease is progressing rapidly. He now has a large right pleural effusion, hilar and mediastinal adenopathy, bilateral pulmonary nodules, and metastatic disease to the brain. I am hopeful that he will be a candidate for stereotactic radiotherapy to the lesions in the brain rather than whole brain radiation. I discussed this with him. He will need to begin his systemic therapy as soon as possible. He has had gratifying responses in the past but the most recent treatment was not associated with a durable response. Will continue heparin intravenously. He may be bridged to Lovenox in the near future and at some time possibly a NOAC. He is very hypercoagulable with pulmonary emboli and bilateral DVT.
--- NOTE | 2018-07-01 13:46 | ECG ---
Date Performed: 06/30/2018 Time Performed: 22:05:18 PTAGE: 57 years EKG: Sinus tachycardia. Left axis deviation Possible inferior infarct - age undetermined Low QRS voltages in limb leads Abnormal ECG PREVIOUS TRACING : 06/29/2018 21.49 Since the previous tracing, no significant change noted DOCTOR: Anastacio Ellsworth Interpretating Date/Time 07/01/2018 13:44:13
[2018-07-01] MEDS: Azithromycin Inj 500 MG in Sodium Chlor 0.9% Inj 250 ML IV.SIG SCH (17:00)
--- NOTE | 2018-07-01 18:08 | P.PN ---
Subjective Interval history: ALERT NAD SITTING IN CHAIR APPETITE [place] Physical Exam Vital signs: Vital Signs 06/30/18 19:00 06/30/18 20:00 06/30/18 20:20 Temperature 99.9 F H Pulse Rate 117 H 116 H 117 H Respiratory Rate 22 20 Blood Pressure 141/84 H Pulse Oximetry 92 L 92 L 06/30/18 21:00 06/30/18 22:00 06/30/18 23:00 Temperature 99.3 F Pulse Rate 130 H 126 H 122 H Respiratory Rate 20 Blood Pressure 124/62 Pulse Oximetry 93 L 06/30/18 23:56 07/01/18 00:00 07/01/18 01:00 Temperature Pulse Rate 111 H 100 H 108 H Respiratory Rate 18 Blood Pressure Pulse Oximetry 07/01/18 02:00 07/01/18 03:00 07/01/18 03:30 Temperature 97.4 F L Pulse Rate 94 H 102 H 92 H Respiratory Rate 20 18 Blood Pressure 124/67 Pulse Oximetry 91 L 07/01/18 04:00 07/01/18 05:00 07/01/18 06:00 Temperature Pulse Rate 93 H 89 64 Respiratory Rate Blood Pressure Pulse Oximetry 07/01/18 07:00 07/01/18 07:55 07/01/18 08:00 Temperature 97.8 F Pulse Rate 84 96 H 74 Respiratory Rate 18 22 Blood Pressure 118/75 Pulse Oximetry 91 L 98 07/01/18 09:00 07/01/18 10:00 07/01/18 11:00 Temperature 98 F Pulse Rate 98 H 100 H 100 H Respiratory Rate 20 Blood Pressure 128/77 Pulse Oximetry 91 L 07/01/18 12:00 07/01/18 13:00 07/01/18 14:00 Temperature Pulse Rate 78 106 H 109 H Respiratory Rate Blood Pressure Pulse Oximetry 07/01/18 15:00 07/01/18 16:00 07/01/18 17:00 Temperature 98.0 F Pulse Rate 98 H 100 H 102 H Respiratory Rate 20 Blood Pressure 124/74 Pulse Oximetry 91 L 07/01/18 17:22 Temperature Pulse Rate 109 H Respiratory Rate 18 Blood Pressure Pulse Oximetry Intake & Output 06/30/18 07/01/18 07/01/18 18:59 06:59 18:59 Intake Total 1350 / 1350 1840 / 1840 1250 / 1250 Output Total 700 / 700 350 / 350 Balance 650 / 650 1490 / 1490 1250 / 1250 Weight 67.1 kg Intake: IV 1000 / 1000 1600 / 1600 1250 / 1250 Heparin/D5W 25,000 U/250 mL 25, 250 / 250 000 unit In 250 ml @ Per Protocol IV.CONT TITRATE PRN Rx #:[id number] NS Inj 1,000 ML @ 84 mls/hr IV. 1000 / 1000 1000 / 1000 1000 / 1000 CONT .[id number] [facility] Rx#:[id number] Azithromycin Inj 500 MG In NS 250 / 250 250 / 250 Inj 250 ML @ 250 mls/hr IV.SIG Q24H [facility] Rx#:[id number] Magnesium Sulfate Inj 2 GM In 100 / 100 NS Inj 96 ML @ 50 mls/hr IV.SIG ONCE ONE Rx#:[id number] Oral 350 / 350 240 / 240 Output: Urine 700 / 700 350 / 350 - Constitutional no acute distress - Routine HEENT Exam Head: Present: normocephalic Eye: Present: EOMI, PERRL ENT: Present: mucous membranes moist - Routine Respiratory Exam Present: CTA bilaterally - Routine Cardiovascular Exam Present: RRR, S1, S2 - Routine Abdominal Exam Present: normoactive bowel sounds Results - Labs CBC & Chem 7: 07/01/18 05:43 06/30/18 22:17 Laboratory Results - last 24 hr 06/30/18 06/30/18 07/01/18 18:05 22:17 00:15 WBC RBC Hgb Hct MCV MCH MCHC RDW Plt Count MPV APTT Potassium 3.7 POC Glucose 76 132 H TSH 07/01/18 07/01/18 07/01/18 05:43 05:43 05:43 WBC 10.6 RBC 3.32 L Hgb 10.6 L Hct 30.1 L MCV 90.5 MCH 31.8 MCHC 35.1 RDW 14.3 Plt Count 267 D MPV 6.5 L APTT 52.5 H D Potassium POC Glucose TSH 0.232 L 07/01/18 05:43 WBC RBC Hgb Hct MCV MCH MCHC RDW Plt Count MPV APTT Potassium POC Glucose 161 H TSH Microbiology 06/30/18 00:40 Fluid - Pleural fluid Gram Stain - Final 06/30/18 00:40 Fluid - Pleural fluid Body Fluid Culture - Preliminary No growth in 24 hours 06/30/18 01:25 Blood - Peripheral Aerobic Blood Culture - Preliminary No growth in 1 day 06/30/18 01:25 Blood - Peripheral Anaerobic Blood Culture - Preliminary No growth in 1 day 06/30/18 01:20 Blood - Peripheral Aerobic Blood Culture - Preliminary No growth in 1 day 06/30/18 01:20 Blood - Peripheral Anaerobic Blood Culture - Preliminary No growth in 1 day 06/30/18 00:40 Abscess - Lung Acid Fast Bacilli Smear - Final No acid fast bacilli seen 06/30/18 00:40 Abscess - Lung Fungal Smear - Final No fungal elements seen Assessment and Plan - Plan LUNG CA PLEURAL EFFUSION PLAN O2 NEEDED PULM TOILET FOR CHEMOTHERAPY
[2018-07-01] MEDS ORDERED: Temazepam 15 MG Capsule PO ONE (22:00)
[2018-07-02] MEDS: Chlorhexidine Gluconate 2% 1 Pack (2 Cloths) TOPICAL SCH (05:35)
[2018-07-02] MEDS: MethylPREDNISolone Sod Succinate Inj 40 MG/ML Vial IV.PUSH SCH ×3 (06:20→21:32)
[2018-07-02 07:00] LABS: Hematocrit 30.2 % (39.0-51.0); Mean Corpuscular Hemoglobin 30.5 pg (27.0-34.0); Mean Corpuscular Volume 92.5 fL (80.0-100.0); Mean Platelet Volume 6.5 fL (7.0-11.0); Platelet Count 333 th/mm3 (150-450); Red Blood Count 3.26 mil/mm3 (4.50-5.90); Red Cell Distribution Width 14.5 % (11.6-17.2); White Blood Count 21.1 th/mm3 (4.0-11.0)
--- NOTE | 2018-07-02 09:06 | P.PNIM ---
Subjective Interval history: pt feels a little better was oob ambulated to br this AM Physical Exam Vital signs: Last Vital Signs Temp 97.4 F L 07/02/18 03:00 Pulse 110 H 07/02/18 07:41 Resp 16 07/02/18 07:41 BP 118/62 07/02/18 03:00 Pulse Ox 90 L 07/02/18 03:00 Narrative: heart reg lung bew baslar crackles abd s/nt ext no edema Results Labs CBC & Chem 7: 07/02/18 06:06 06/30/18 22:17 Assessment and Plan Plan Pt with stage 4 adenocarcinoma presents with respiratory distress brain mets. mediastinal/hilar lymphadenopathy. found to have a large right pleural effusion. 1500ml thoracentesis left lung pulmonary emboli. dvt's areas of groundglass and consolidation bilaterally lung 2d echo. EF 55%, ?tamponade or collapse of right atrium per official reading. pulmonology and oncology following on 6lnc wean down. on steroids/nebs/abx per pulmonary heparin gtt. lovenox and noac discussed awaiting further chemo and radiation decisions by oncology advance diet. oob with PT f/u pending studies. Progress Note: Quality VTE Deep Vein Thrombosis/Pulmonary Embolism Present on Admission: Yes
[2018-07-02] MEDS: Folic Acid 1 MG Tablet PO SCH (09:20)
[2018-07-02] MEDS: Senna/Docusate Sodium 8.6/50 MG Tablet PO SCH ×2 (09:20→21:33)
[2018-07-02] MEDS: Azithromycin Inj 500 MG in Sodium Chlor 0.9% Inj 250 ML IV.SIG SCH (16:02)
[2018-07-02] MEDS: Temazepam 15 MG Capsule PO PRN (21:34)
[2018-07-03] MEDS: Chlorhexidine Gluconate 2% 1 Pack (2 Cloths) TOPICAL SCH (04:46)
[2018-07-03] MEDS: MethylPREDNISolone Sod Succinate Inj 40 MG/ML Vial IV.PUSH SCH ×3 (05:09→22:05)
[2018-07-03] MEDS: Folic Acid 1 MG Tablet PO SCH (08:32)
[2018-07-03] MEDS: Senna/Docusate Sodium 8.6/50 MG Tablet PO SCH ×2 (08:33→22:00)
--- NOTE | 2018-07-03 08:43 | MB ---
cc: Josselin Cabrera MD DATE: 06/30/2018 CHIEF COMPLAINT: 1. Metastatic lung adenocarcinoma. 2. Pleural effusion. 3. Pulmonary embolism. 4. Shortness of breath. HISTORY OF PRESENT ILLNESS: Mr. Ross is a 57-year-old gentleman with a history of metastatic lung adenocarcinoma. 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 He had a pericardiocentesis, which revealed poorly differentiated adenocarcinoma consistent with lung cancer and malignant cells, which were negative for EGFR and ALK. He was treated with carboplatin, paclitaxel and Avastin as well as maintenance Avastin and radiation to the right lung. He entered into remission and he did very well until August 2017, when he developed an enlarging mass in the right anterior forearm. CT followed by PET showed multiple bilateral pulmonary masses and axillary nodes. An MRI of the brain was negative. Needle biopsy of the right axilla showed metastatic poorly differentiated non-small cell lung cancer. EGFR and ALK negative. PD-L1 was 1%. He received 5 cycles of carboplatin, paclitaxel and Avastin had a complete radiographic remission of the pulmonary nodules. Followup PET scan with recurrent disease. He also had been noticing an increase in size of the mass in the right arm. He has left supraclavicular adenopathy, mediastinal and axillary adenopathy, and pulmonary metastasis. He was started on therapy with pembrolizumab and has received a dose on 05/19/2018 and 06/08/2018. He switched to my care so he can move to the [facility] as travel to the [facility] had been quite cumbersome for him. He presented to the hospital on 06/29/2018 with progressively worsening shortness of breath of 1 week duration. Imaging study showed right pleural effusion, 2 nonocclusive left lower lobe pulmonary emboli, bilateral hilar and subcarinal lymph nodes, a right upper lobe mass 5 cm, large right pleural effusion. He is status post thoracentesis in the emergency room, which we removed 15 mL of fluid with great improvement in his respiratory status. He was placed on heparin. REVIEW OF SYSTEMS: As above in the HPI. All others negative. PAST MEDICAL HISTORY: Metastatic lung adenocarcinoma. PAST SURGICAL HISTORY: Infusaport placement, multiple biopsies. ALLERGIES: NO KNOWN DRUG ALLERGIES. HOME MEDICATIONS: 1. Aspirin 325. 2. Fish oil. 3. Levothyroxine. 4. Multivitamin. 5. Vitamin C. 6. Vitamin D. FAMILY HISTORY: No known family history of malignancy. SOCIAL HISTORY: He is a former smoker, smoked for approximately 30 years. He quit many years ago. HOSPITAL MEDICATIONS: 1. Heparin. 2. Folic acid. 3. Levothyroxine. 4. Morphine. PHYSICAL EXAMINATION: VITAL SIGNS: Temperature 98.5, pulse rate 96, respiratory rate 18, blood pressure 118/69, oxygen is 95% on room air. GENERAL: Chronically ill-appearing man, in no distress. HEENT: Head is normocephalic, atraumatic. Eyes: No scleral icterus. CARDIOVASCULAR: Heart rate is tachycardic in the 110s. Normal S1 and S2. RESPIRATORY: Bibasilar crackles. ABDOMEN: Soft, nontender, nondistended. Bowel sounds present. Bilateral lower extremity edema. NEUROLOGIC: Grossly nonfocal. PSYCHIATRIC: Appropriate mood and affect. LABORATORY STUDIES: Creatinine of 0.54, total bilirubin 0.5, AST 39, ALT 27, total protein 5.7, albumin 2.3. Hematology: White blood cell count 11, hemoglobin 10.4, platelet count 202,000. ANC is 8600. PT 14.6, PTT 42.6, fibrinogen 118. Chest CTA with progression of disease, moderate right effusion, multiple bilateral pulmonary nodules and pulmonary embolism. ASSESSMENT AND PLAN: 1. Metastatic lung adenocarcinoma with progression of disease on single agent pembrolizumab. Once the patient has recovered, we will plan to initiate treatment with carboplatin and pemetrexed in the outpatient setting. We will also check blood for circulating tumor cells and [id number] testing. 2. Pleural effusion secondary to either recurrent disease as he previously had pleural effusion on initial presentation versus less likely a side effect of immune therapy. He is status post drainage. We will continue to follow clinically. If recurs, would consider steroid therapy. 3. Pulmonary embolism, currently on heparin drip would advocate initially for Lovenox injections in the outpatient setting and then would consider switching to DOAC in the future. MD ANH Epperson/garland/nany Solorio: 06/30/2018, 12:42 PM , 12:53 PM SUSANNA
--- NOTE | 2018-07-03 10:09 | P.PNIM ---
Subjective Interval history: eating breakfast no new complaints Physical Exam Vital signs: Last Vital Signs Temp 98.7 F 07/03/18 08:00 Pulse 109 H 07/03/18 09:50 Resp 16 07/03/18 08:00 BP 114/74 07/03/18 08:00 Pulse Ox 92 L 07/03/18 08:40 Narrative: heart reg lung course bs lisa abd s/nt ext no edema Results Labs CBC & Chem 7: 07/02/18 06:06 06/30/18 22:17 Assessment and Plan Plan Pt with stage 4 adenocarcinoma presents with respiratory distress brain mets. mediastinal/hilar lymphadenopathy. found to have a large right pleural effusion. 1500ml thoracentesis left lung pulmonary emboli. dvt's areas of groundglass and consolidation bilaterally lung 2d echo. EF 55%, ?tamponade or collapse of right atrium per official reading. pulmonology and oncology following persistent hypoxia. increase o2 on steroids/nebs/abx per pulmonary. add mucomyst heparin gtt. lovenox and noac discussed. convert heydi awaiting further chemo and radiation decisions by med/radiation oncology advance diet. oob with PT f/u pending studies. Progress Note: Quality VTE Deep Vein Thrombosis/Pulmonary Embolism Present on Admission: Yes
--- NOTE | 2018-07-03 11:23 | P.PNONC ---
Subjective Interval history: Patient sleeping on approach, awakens easily to voice. He is requiring nonrebreather at 15 L. He denies any shortness of breath. He continues on heparin drip, denies any bleeding. Objective Vital Signs/Intake & Output: Vital Signs 07/02/18 12:00 07/02/18 12:37 07/02/18 13:00 Temperature Pulse Rate 108 H 104 H 126 H Respiratory Rate 16 Blood Pressure Pulse Oximetry 07/02/18 14:00 07/02/18 15:00 07/02/18 16:00 Temperature 97.6 F Pulse Rate 114 H 112 H 108 H Respiratory Rate 18 Blood Pressure 118/70 Pulse Oximetry 91 L 07/02/18 17:00 07/02/18 18:00 07/02/18 19:00 Temperature 98.0 F Pulse Rate 106 H 108 H 107 H Respiratory Rate 22 Blood Pressure 110/67 Pulse Oximetry 89 L 07/02/18 19:36 07/02/18 20:00 07/02/18 21:00 Temperature Pulse Rate 106 H 118 H 118 H Respiratory Rate 17 Blood Pressure Pulse Oximetry 91 L 07/02/18 22:00 07/02/18 23:00 07/03/18 00:00 Temperature 98.1 F Pulse Rate 114 H 110 H 105 H Respiratory Rate 22 Blood Pressure 117/72 Pulse Oximetry 90 L 07/03/18 00:04 07/03/18 01:00 07/03/18 02:00 Temperature Pulse Rate 104 H 107 H 92 H Respiratory Rate 20 Blood Pressure Pulse Oximetry 92 L 07/03/18 03:00 07/03/18 03:28 07/03/18 04:00 Temperature 98.1 F Pulse Rate 109 H 103 H 92 H Respiratory Rate 20 24 Blood Pressure 118/64 Pulse Oximetry 89 L 07/03/18 05:00 07/03/18 06:00 07/03/18 07:00 Temperature Pulse Rate 106 H 100 H 94 H Respiratory Rate Blood Pressure Pulse Oximetry 07/03/18 07:38 07/03/18 07:41 07/03/18 08:00 Temperature 98.7 F Pulse Rate 100 H 104 H Respiratory Rate 16 16 Blood Pressure 114/74 Pulse Oximetry 90 L 85 L 07/03/18 08:15 07/03/18 08:40 07/03/18 09:00 Temperature Pulse Rate 111 H Respiratory Rate Blood Pressure Pulse Oximetry 92 L 92 L 07/03/18 09:50 Temperature Pulse Rate 109 H Respiratory Rate Blood Pressure Pulse Oximetry Intake & Output 07/02/18 07/03/18 07/03/18 18:59 06:59 18:59 Intake Total 940 / 940 540 / 540 Output Total 150 / 150 Balance 940 / 940 390 / 390 Weight 68.6 kg Intake: IV 300 / 300 Heparin/D5W 25,000 U/250 mL 25, 50 / 50 000 unit In 250 ml @ Per Protocol IV.CONT TITRATE PRN Rx #:[id number] Azithromycin Inj 500 MG In NS 250 / 250 Inj 250 ML @ 250 mls/hr IV.SIG Q24H [facility] Rx#:[id number] Oral 940 / 940 240 / 240 Output: Urine 150 / 150 Other: # Voids 4 Date of Last Bowel Movement 07/02/18 07/02/18 # Bowel Movements 1 Result Diagrams: 07/02/18 06:06 06/30/18 22:17 Laboratory Results: Laboratory Results - last 24 hr 07/03/18 05:41 APTT 45.2 H Culture Results: Microbiology 06/30/18 01:25 Aerobic Blood Culture - Preliminary Blood - Peripheral No growth in 3 days Anaerobic Blood Culture - Preliminary No growth in 3 days 06/30/18 01:20 Aerobic Blood Culture - Preliminary Blood - Peripheral No growth in 3 days Anaerobic Blood Culture - Preliminary No growth in 3 days 06/30/18 00:40 Gram Stain - Final Fluid - Pleural fluid Body Fluid Culture - Final No growth in 72 hours (aerobically and anaerobically) 06/30/18 00:40 Acid Fast Bacilli Smear - Final Abscess - Lung No acid fast bacilli seen 06/30/18 00:40 Fungal Smear - Final Abscess - Lung No fungal elements seen Medications: Active Medications Generic Name Dose Route Start Last Admin Trade Name Freq PRN Reason Stop Dose Admin Albuterol 1 ampul 06/30/18 00:00 07/03/18 07:37 Duoneb Neb ([facility]) NEB 1 ampul Q4HR NEB [facility] Administration Chlorhexidine Gluconate 3 pack 06/30/18 04:00 07/03/18 04:46 Chlorhexidine 2% Cloth TOPICAL 07/05/18 03:59 Not Given DAILY@0400 [facility] Folic Acid 1 mg 06/30/18 09:00 07/03/18 08:32 Folic Acid PO 1 mg DAILY [facility] Administration Heparin Sodium/Dextrose 25,000 unit in 250 mls @ 0 mls/hr 06/29/18 21:55 21:38 Heparin/D5w 25,000 U/250 Ml IV.CONT 1,100 units/hr TITRATE PRN 11 mls/hr Per Protocol Titration Protocol Per Protocol Azithromycin 500 mg/ Sodium 250 mls @ 250 mls/hr 06/30/18 15:00 07/02/18 19: 39 Chloride IV.SIG Infused Q24H [facility] Infusion Levothyroxine Sodium 25 mcg 06/30/18 06:00 07/03/18 05:09 Synthroid PO 25 mcg DAILY@0600 [facility] Administration Methylprednisolone Sodium Succinate 40 mg 06/30/18 22:00 07/03/18 05:09 Solumedrol Inj IV.PUSH 40 mg Q8HR [facility] Administration Morphine Sulfate 2 mg 06/29/18 23:43 06/30/18 21:23 Morphine Inj IV.PUSH 2 mg Q2H PRN Administration PAIN SCALE 6 TO 10 Pantoprazole Sodium 40 mg 07/02/18 09:00 07/03/18 08:32 Protonix PO 40 mg DAILY [facility] Administration Senna/Docusate Sodium 1 tab 06/30/18 09:00 07/03/18 08:33 Janette-Colace PO Not Given BID [facility] Sodium Chloride 2 ml 06/30/18 09:00 07/03/18 08:33 Ns Flush IV.FLUSH Not Given BID [facility] Temazepam 15 mg 07/02/18 21:00 07/02/18 21:34 Restoril PO 15 mg HS PRN Administration INSOMNIA Objective Remarks: GENERAL: Well-nourished, well-developed male patient, in no acute distress. SKIN: Warm and dry. HEAD: Normocephalic. EYES: No scleral icterus. No injection or drainage. NECK: Supple, trachea midline. CARDIOVASCULAR: Regular rate and rhythm without murmurs. RESPIRATORY: Crackles in right base. No accessory muscle use. Nonrebreather at 15 L. GASTROINTESTINAL: Abdomen soft, non-tender, nondistended. EXTREMITIES: No cyanosis, or edema. Right arm > Left. MUSCULOSKELETAL: Adequate muscle tone. NEUROLOGICAL: No obvious focal deficit. Sleeping, awakens easily to voice, and oriented x3. PSYCHIATRIC: Appropriate mood and affect; insight and judgment normal. Assessment/Plan - Plan Mr. Ross is a 57-year-old gentleman with stage IV lung cancer. He was originally diagnosed in 2012, he received carbo, Taxol and Avastin and radiation to the right lung. He was doing well until August 2017, when he developed a large mass in the right anterior forearm, multiple pulmonary masses and axillary lymph nodes. Needle biopsy of the right axilla revealed metastatic poorly differentiated non-small cell lung cancer, EGFR ALK negative. PDL-1 1%. He received 5 cycles of carboplatin, Taxol and Avastin. In May 2018, he had a PET scan which revealed recurrent disease. He had left supraclavicular adenopathy, mediastinal and axillary adenopathy and bony metastasis. He reports his last treatment was 21 days ago with immunotherapy, under the direction of Dr. Cabrera. He is currently admitted to the hospital for shortness of breath, patient found to have large right pleural effusion, thoracentesis done in the ED removed 1500 mL. Patient also found to have PE and DVT. Recommendations: 1. Metastatic poorly differentiated non-small cell lung cancer, MRI head revealed bilateral cerebral and right cerebellar enhancing lesions characteristic of metastatic disease. Largest lesions measuring 2.2 cm and 1.5 cm, additional subcentimeter lesions noted. No evidence of acute infarct or hemorrhage. No significant mass-effect or shift of midline structures. Chemotherapy outpatient with carbo, pemetrexed. 2. Pulmonary embolism and bilateral DVTs, currently on heparin drip. No bleeding noted. Recommend continued anticoagulation as long as no bleeding and brain lesions. Will bridge to Lovenox after procedure tomorrow. 3. MRI revealing characteristic metastatic disease, will consult radiation oncology. Continue anticoagulation as long as no bleeding and lesions in brain. Continue steroids. 4. Increased oxygen requirements, patient status post thoracentesis on 06/29 with 1500 mL removed. Will do chest x-ray to evaluate further. 5. Right arm> Left, ultrasound. - Attending Statement The exam, history, and the medical decision-making described in the above note were completed with the assistance of the mid-level provider. I reviewed and agree with the findings presented. I attest that I had a [id number] encounter with the patient on the same day, and personally performed and documented my assessment and findings in the medical record. 57 yoM with metastatic esophageal cancer. 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 Radiation oncology consult pending. VTE continue lovenox.
--- NOTE | 2018-07-03 12:41 | US ---
EXAM DATE: 07/03/2018 12:33 PM EST AGE/SEX: 57 years / Male INDICATIONS: Right arm swelling. CLINICAL DATA: This is the patient's initial encounter. Patient reports that signs and symptoms have been present for 1 day and indicates a pain score of 0/10. MEDICAL/SURGICAL HISTORY: Hypothyroidism. Pulmonary embolism. Right lung cancer. Chemotherapy. Immunotherapy. COPD. . Port-A-Cath placement. Pericardiocentesis. COMPARISON: No prior exams available for comparison. FINDINGS: There is incompletely occlusive thrombus present in the distal brachial vein. There is a 1 5 mm soft tissue density mass deep to and slightly displacing the vessels at the mid humeral level. A second similar finding present at the antecubital fossa level. Other: None. CONCLUSION: 1. Right brachial vein DVT. 2. Soft tissue masses which may reflect jay enlargement or metastatic disease. Electronically signed by: Nicolas Boyce MD 07/03/2018 12:39 PM EST
--- NOTE | 2018-07-03 12:44 | XR ---
EXAM DATE: 07/03/2018 12:40 PM EST AGE/SEX: 57 years / Male INDICATIONS: . Shortness of breath. CLINICAL DATA: This is the patient's subsequent encounter. Patient reports that signs and symptoms h ave been present for 3 days and indicates a pain score of 0/10. MEDICAL/SURGICAL HISTORY: Carcinoma, lung. None. [place] [facility] [place]30/[place]. . FINDINGS: The [id number] in good position. There is a large right-sided effusion. There is diffuse bilateral infiltrate suggesting congestive fa ilure. The overall appearance of the chest is significantly worsened compared to previous dated 06/30/2018. The visualized bony structures are grossly intact. CONCLUSION: Increasing right-sided pleural effusion and diffuse bilateral infiltrate worsened when compared to pr evious of 06/30/2018. Electronically signed by: Cosme Strickland MD 07/03/2018 12:43 PM EST
[2018-07-03] MEDS: Heparin Drip 25,000 UNIT/250 ML BAG IV.CONT PRN (15:09)
[2018-07-03] MEDS: Azithromycin Inj 500 MG in Sodium Chlor 0.9% Inj 250 ML IV.SIG SCH (16:06)
--- NOTE | 2018-07-03 18:52 | P.PN ---
Subjective Interval history: He is more SOB today. Needs O2 up to 70 % with a NRB mask. Now his Chest X ray shows a large effusion again. Physical Exam Vital signs: Vital Signs 07/02/18 19:00 07/02/18 19:36 07/02/18 20:00 Temperature 98.0 F Pulse Rate 107 H 106 H 118 H Respiratory Rate 22 17 Blood Pressure 110/67 Pulse Oximetry 89 L 91 L 07/02/18 21:00 07/02/18 22:00 07/02/18 23:00 Temperature 98.1 F Pulse Rate 118 H 114 H 110 H Respiratory Rate 22 Blood Pressure 117/72 Pulse Oximetry 90 L 07/03/18 00:00 07/03/18 00:04 07/03/18 01:00 Temperature Pulse Rate 105 H 104 H 107 H Respiratory Rate 20 Blood Pressure Pulse Oximetry 92 L 07/03/18 02:00 07/03/18 03:00 07/03/18 03:28 Temperature 98.1 F Pulse Rate 92 H 109 H 103 H Respiratory Rate 20 24 Blood Pressure 118/64 Pulse Oximetry 89 L 07/03/18 04:00 07/03/18 05:00 07/03/18 06:00 Temperature Pulse Rate 92 H 106 H 100 H Respiratory Rate Blood Pressure Pulse Oximetry 07/03/18 07:00 07/03/18 07:38 07/03/18 07:41 Temperature Pulse Rate 94 H 100 H Respiratory Rate 16 Blood Pressure Pulse Oximetry 90 L 07/03/18 08:00 07/03/18 08:15 07/03/18 08:40 Temperature 98.7 F Pulse Rate 104 H Respiratory Rate 16 Blood Pressure 114/74 Pulse Oximetry 85 L 92 L 92 L 07/03/18 09:00 07/03/18 09:50 07/03/18 11:00 Temperature Pulse Rate 111 H 109 H 97 H Respiratory Rate Blood Pressure Pulse Oximetry 07/03/18 12:00 07/03/18 13:00 07/03/18 14:00 Temperature 97.4 F L Pulse Rate 96 H 106 H 102 H Respiratory Rate 20 Blood Pressure 119/74 Pulse Oximetry 97 07/03/18 15:00 07/03/18 15:49 07/03/18 16:00 Temperature 97.8 F Pulse Rate 98 H 90 104 H Respiratory Rate 16 16 Blood Pressure 117/78 Pulse Oximetry 92 L 07/03/18 17:00 07/03/18 17:15 07/03/18 17:27 Temperature Pulse Rate 116 H Respiratory Rate Blood Pressure Pulse Oximetry 93 L 93 L 07/03/18 17:37 Temperature Pulse Rate 110 H Respiratory Rate Blood Pressure Pulse Oximetry Intake & Output 07/02/18 07/03/18 07/03/18 18:59 06:59 18:59 Intake Total 940 / 940 540 / 540 1760 / 1760 Output Total 150 / 150 950 / 950 Balance 940 / 940 390 / 390 810 / 810 Weight 68.6 kg Intake: IV 300 / 300 500 / 500 Heparin/D5W 25,000 U/250 mL 25, 50 / 50 250 / 250 000 unit In 250 ml @ Per Protocol IV.CONT TITRATE PRN Rx #:[id number] Azithromycin Inj 500 MG In NS 250 / 250 250 / 250 Inj 250 ML @ 250 mls/hr IV.SIG Q24H [facility] Rx#:[id number] Oral 940 / 940 240 / 240 1260 / 1260 Output: Urine 150 / 150 950 / 950 Other: # Voids 4 Date of Last Bowel Movement 07/02/18 07/03/18 # Bowel Movements 1 2 GENERAL: Mid aged W/M alert pale SKIN: Warm and dry. HEAD: Atraumatic. Normocephalic. EYES: Pupils equal and round. No scleral icterus. No injection or drainage. ENT: No nasal bleeding or discharge. Mucous membranes pink and moist. NECK: Trachea midline. No JVD. CARDIOVASCULAR: Regular rate and rhythm. RESPIRATORY: No accessory muscle use. occ wheeze. Breath sounds reduced over right chest.. GASTROINTESTINAL: Abdomen soft, non-tender, nondistended. Hepatic and splenic margins not palpable. MUSCULOSKELETAL: Extremities without clubbing, cyanosis, or edema. No obvious deformities. NEUROLOGICAL: Awake and alert. No obvious cranial nerve deficits. Motor grossly within normal limits. Five out of 5 muscle strength in the arms and legs. Normal speech. PSYCHIATRIC: Appropriate mood and affect; insight and judgment normal. Results - Labs CBC & Chem 7: 07/02/18 06:06 06/30/18 22:17 Laboratory Results - last 24 hr 07/03/18 05:41 APTT 45.2 H Microbiology 07/02/18 16:10 Sputum - Expectorated Sputum Gram Stain - Final 07/02/18 16:10 Sputum - Expectorated Sputum Sputum Culture - Preliminary Heavy growth normal respiratory consuelo at 24 hours 06/30/18 01:25 Blood - Peripheral Aerobic Blood Culture - Preliminary No growth in 3 days 06/30/18 01:25 Blood - Peripheral Anaerobic Blood Culture - Preliminary No growth in 3 days 06/30/18 01:20 Blood - Peripheral Aerobic Blood Culture - Preliminary No growth in 3 days 06/30/18 01:20 Blood - Peripheral Anaerobic Blood Culture - Preliminary No growth in 3 days 06/30/18 00:40 Fluid - Pleural fluid Gram Stain - Final 06/30/18 00:40 Fluid - Pleural fluid Body Fluid Culture - Final No growth in 72 hours (aerobically and anaerobically ) - Imaging Impressions Chest X-Ray 07/03/18 00:00 CONCLUSION: Increasing right-sided pleural effusion and diffuse bilateral infiltrate worsened when compared to previous of 06/30/2018. Venous Doppler Study 07/03/18 00:00 CONCLUSION: 1. Right brachial vein DVT. 2. Soft tissue masses which may reflect jay enlargement or metastatic disease. Assessment and Plan - Assessment (1) COPD (chronic obstructive pulmonary disease) Code(s): J44.9 - Chronic obstructive pulmonary disease, unspecified Status: Acute (2) Recurrent right pleural effusion Code(s): J90 - Pleural effusion, not elsewhere classified Status: Acute (3) Adenocarcinoma of lung, stage 4 Code(s): C34.90 - Malignant neoplasm of unspecified part of unspecified bronchus or lung Status: Chronic (4) Leukocytosis Code(s): D72.829 - Elevated white blood cell count, unspecified Status: Acute (5) Normocytic anemia Code(s): D64.9 - Anemia, unspecified Status: Chronic (6) Hypothyroidism Code(s): E03.9 - Hypothyroidism, unspecified Status: Acute (7) Elevated INR Code(s): R79.1 - Abnormal coagulation profile Status: Acute (8) Pulmonary embolus Code(s): I26.99 - Other pulmonary embolism without acute cor pulmonale Status : Acute (9) Hypoalbuminemia Code(s): E88.09 - Other disorders of plasma-protein metabolism, not elsewhere classified Status: Acute - Plan 1. Will get IR to place Pleur X catheter on right chest 2. O2 NRB mask and Wean 3. Duonebs qid. with nebulizer 4. CXR ,CBC BMP in am 5. Continue Heparin drip. (3) Adenocarcinoma of lung, stage 4 Qualifiers: Laterality: unspecified laterality Qualified Code(s): C34.90 - Malignant neoplasm of unspecified part of unspecified bronchus or lung (4) Leukocytosis Qualifiers: Leukocytosis type: unspecified Qualified Code(s): D72.829 - Elevated white blood cell count, unspecified (6) Hypothyroidism Qualifiers: Hypothyroidism type: unspecified Qualified Code(s): E03.9 - Hypothyroidism, unspecified (8) Pulmonary embolus Qualifiers: Pulmonary embolism type: other Chronicity: acute Acute cor pulmonale presence: without acute cor pulmonale Qualified Code(s): I26.99 - Other pulmonary embolism without acute cor pulmonale
[2018-07-03] MEDS ORDERED: Enoxaparin Inj 80 MG/0.8 ML Syringe SQ SCH (21:00)
[2018-07-03] MEDS: Temazepam 15 MG Capsule PO PRN (22:05)
[2018-07-04] MEDS: MethylPREDNISolone Sod Succinate Inj 40 MG/ML Vial IV.PUSH SCH ×3 (05:43→21:28)
[2018-07-04] MEDS: Chlorhexidine Gluconate 2% 1 Pack (2 Cloths) TOPICAL SCH (06:19)
[2018-07-04] MEDS: Folic Acid 1 MG Tablet PO SCH (08:37)
[2018-07-04] MEDS: Senna/Docusate Sodium 8.6/50 MG Tablet PO SCH ×2 (08:38→21:28)
[2018-07-04] MEDS ORDERED: LORazepam 1 MG Tablet PO PRN (08:41)
--- NOTE | 2018-07-04 08:50 | P.PNIM ---
Subjective Interval history: anxious. wants anxiety/depression meds. Physical Exam Vital signs: Last Vital Signs Temp 98 F 07/04/18 08:31 Pulse 92 H 07/04/18 08:31 Resp 17 07/04/18 08:31 BP 128/89 07/04/18 08:31 Pulse Ox 92 L 07/04/18 08:31 Narrative: heart reg lung. diminished right lung base abd s/nt ext no edema Results Labs CBC & Chem 7: 07/02/18 06:06 06/30/18 22:17 Assessment and Plan Assessment (1) COPD (chronic obstructive pulmonary disease): Code(s): J44.9 - Chronic obstructive pulmonary disease, unspecified Status: Acute (2) Recurrent right pleural effusion: Code(s): J90 - Pleural effusion, not elsewhere classified Status: Acute (3) Adenocarcinoma of lung, stage 4: Code(s): C34.90 - Malignant neoplasm of unspecified part of unspecified bronchus or lung Status: Chronic (4) Leukocytosis: Code(s): D72.829 - Elevated white blood cell count, unspecified Status: Acute (5) Normocytic anemia: Code(s): D64.9 - Anemia, unspecified Status: Chronic (6) Hypothyroidism: Code(s): E03.9 - Hypothyroidism, unspecified Status: Acute (7) Elevated INR: Code(s): R79.1 - Abnormal coagulation profile Status: Acute (8) Pulmonary embolus: Code(s): I26.99 - Other pulmonary embolism without acute cor pulmonale Status: Acute (9) Hypoalbuminemia: Code(s): E88.09 - Other disorders of plasma-protein metabolism, not elsewhere classified Status: Acute Plan Pt with stage 4 adenocarcinoma presents with respiratory distress brain mets. mediastinal/hilar lymphadenopathy. found to have a large malignant right pleural effusion. 1500ml thoracentesis ..now with reaccumulation and hypoxia. nrb. left lung pulmonary emboli. dvt's areas of groundglass and consolidation bilaterally lung 2d echo. EF 55%, ?tamponade or collapse of right atrium per official reading. pulmonology and oncology following persistent hypoxia. increased o2 going for Pleur x chest tube drainage system today. hold heparin. on steroids/nebs/abx per pulmonary. add mucomyst heparin gtt. convert to lovenox after procedure. add anxiolytic awaiting further chemo and radiation decisions by med/radiation oncology advance diet. oob with PT f/u pending studies. Progress Note: Quality VTE Deep Vein Thrombosis/Pulmonary Embolism Present on Admission: Yes _ (1) COPD (chronic obstructive pulmonary disease) Qualifiers: COPD type: Chronic bronchitis type: Emphysema type: (2) Adenocarcinoma of lung, stage 4 Qualifiers: Laterality: unspecified laterality Qualified Code(s): C34.90 - Malignant neoplasm of unspecified part of unspecified bronchus or lung (3) Leukocytosis Qualifiers: Leukocytosis type: unspecified Qualified Code(s): D72.829 - Elevated white blood cell count, unspecified (4) Hypothyroidism Qualifiers: Hypothyroidism type: unspecified Qualified Code(s): E03.9 - Hypothyroidism, unspecified (5) Pulmonary embolus Qualifiers: Pulmonary embolism type: other Chronicity: acute Acute cor pulmonale presence: without acute cor pulmonale Qualified Code(s): I26.99 - Other pulmonary embolism without acute cor pulmonale
--- NOTE | 2018-07-04 08:55 | P.CON ---
History of Present Illness Service: Radiation oncology Consult date: 07/04/18 Requesting Physician: Josselin Cabrera Reason for Consult: Brain metastases and shortness of breath Primary Care Provider: Juan Guerrero MD Chief Complaint: Shortness of breath History of Present Illness: 57-year-old white male with diagnosis of metastatic lung carcinoma progressive in nature. Patient presented with the history of shortness of breath cough. Workup in the hospital has detected DVT as well as progressive disease within the lung and brain metastasis. A consult has been placed for evaluation regarding her therapy treatment options. Case has been discussed with Dr. Cabrera today. Patient was treated to the right lung to a total dose of 6000 cGy, this was done on November 2014. Review of Systems Constitutional: Reports fatigue, Reports lack of energy, Reports malaise, Reports weakness Eyes: Denies blind spots, Denies blurry vision, Denies bulging eyes, Denies change in vision, Denies double vision, Denies discharge, Denies dry eyes, Denies floaters, Denies irritation, Denies itchy eyes, Denies loss of vision, Denies pain, Denies requires corrective lenses, Denies sensitivity to light, Denies other Ears, Nose, Mouth, and Throat: Denies abnormal hearing, Denies bleeding gums, Denies bad breath, Denies change in voice, Denies dental pain, Denies difficulty swallowing, Denies dizziness, Denies dry mouth, Denies ear discharge , Denies ear pain, Denies facial pain, Denies headache(s), Denies hearing loss, Denies hoarseness, Denies lip swelling, Denies nosebleed, Denies mouth lesions, Denies mouth pain, Denies nasal congestion, Denies nasal discharge, Denies nasal obstruction, Denies nasal trauma, Denies neck lump, Denies neck pain, Denies nose pain, Denies pain with swallowing, Denies poor balance, Denies post nasal drip, Denies ringing in the ears, Denies sinus pain, Denies sinus pressure , Denies sore throat, Denies throat swelling, Denies tongue swelling, Denies other Cardiovascular: Denies chest pain, Denies chest pain at rest, Denies chest pain with activity, Denies excessive sweating, Denies fainting, Denies fast heart rate, Denies foot swelling, Denies generalized swelling, Denies irregular heart rhythm, Denies leg pain with activity, Denies leg sores, Denies leg swelling, Denies lightheadedness, Denies radiating jaw, neck or arm pain, Denies rapid, pounding, or irregular heartbeat, Denies shortness of breath, Denies shortness of breath with activity, Denies shortness of breath when lying down, Denies shortness of breath causing sudden awakening, Denies slow heart rate, Denies other Respiratory: Reports cough, Reports shortness of breath, Reports shortness of breath with activity Gastrointestinal: Denies abdominal pain, Denies belching, Denies black, tarry stools, Denies bloating, Denies bright, red blood in stools, Denies change in bowel habits, Denies constant urge to pass stool, Denies change in stools, Denies coffee ground vomit, Denies constipation, Denies cramping, Denies difficulty swallowing, Denies excessive passing of gas, Denies feeling full early, Denies heartburn, Denies incontinent of stools, Denies loose stools, Denies nausea, Denies pain with swallowing, Denies vomiting, Denies vomiting blood, Denies other Genitourinary: Denies blood in semen, Denies blood in urine, Denies decreased urination, Denies difficulty urinating, Denies difficulty with ejaculations, Denies erectile dysfunction, Denies genital lesions, Denies genital pain, Denies painful urination, Denies side pain, Denies frequent nighttime urination , Denies painful ejaculations, Denies penile discharge, Denies scrotal swelling , Denies testicle lump, Denies testicle pain, Denies urinary frequency, Denies urinary hesitancy, Denies urinary incontinence, Denies urinary urgency, Denies other Musculoskeletal: Denies abnormal walking, Denies back pain, Denies body aches, Denies decreased muscle mass, Denies deformity, Denies joint pain, Denies joint swelling, Denies limited joint movement, Denies loss of height, Denies muscle cramps, Denies muscle weakness, Denies neck pain, Denies numbness, Denies radiating pain into limb, Denies stiffness, Denies tingling, Denies other Skin/Breast: Denies acne, Denies bleeding lesions, Denies boil, Denies breast swelling, Denies breast skin changes, Denies breast pain, Denies breast lump, Denies change in breast shape, Denies change in hair, Denies change in skin color, Denies changing lesions, Denies dry skin, Denies excessive hair growth, Denies hair loss, Denies itching, Denies lesions, Denies nail changes, Denies new lesions, Denies nipple discharge, Denies non-healing lesions, Denies redness , Denies sensitivity to light, Denies rash, Denies skin pain, Denies skin ulcer , Denies sores, Denies stretch ramos, Denies unusual bruising, Denies wounds, Denies yellowing of the skin, Denies other Neurologic: Denies abnormal hearing, Denies abnormal movements, Denies abnormal speech, Denies abnormal walking, Denies behavioral changes, Denies burning sensations, Denies confusion, Denies dizziness, Denies fainting, Denies frequent falls, Denies headache(s), Denies lack of coordination, Denies localized weakness, Denies loss of vision, Denies memory loss, Denies numbness, Denies other visual disturbances, Denies radiating pain, Denies restless legs, Denies convulsions, Denies seizure-like activity, Denies sensory deficit, Denies tingling, Denies tingling/numbness/burning sensations, Denies tremor(s), Denies unsteadiness, Denies weakness, Denies other Endocrine: Denies cold intolerance, Denies excessive sweating, Denies flushing, Denies heat intolerance, Denies increased hunger, Denies increased thirst, Denies increased urination, Denies rapid, pounding, or irregular heartbeat, Denies other Hematologic/Lymphatic: Denies easy bleeding, Denies easy bruising, Denies enlarged lymph nodes, Denies other Allergic/Immunologic: Denies GI upset with certain foods, Denies hives, Denies itchy eyes, Denies lip swelling, Denies seasonal runny nose, Denies throat swelling, Denies tongue swelling, Denies wheezing, Denies other PMFSH - History History Provided By: Patient - Medical History Medical History: Medical History (Last Reviewed 06/30/18 @ 11:00 by Frank Kenney) Lung cancer Pulmonary embolism Hypothyroid - Surgical History Surgical History: Surgical History (Last Reviewed 06/30/18 @ 11:00 by Frank Kenney) S/P pericardiocentesis Port-A-Cath in place - Family History Family History: Family History (Last Updated 06/30/18 @ 00:55 by Rick Nielsen MD) Other Patient's father is - Tobacco History Second Hand Smoke Exposure: No Tobacco Use In Past 30 Days: No Smoking Status: Former smoker - Alcohol History How Often Do You Have a Drink Containing Alcohol: 4 or more times a week - Substance Use History Substance History: No History of Abuse - Travel History Recent Travel in the [place] Within the Last 8 Weeks: No Recent Travel Out of the Country Within the Last 8 Weeks: No - Immunization History Tetanus Immunization: <5 Years Hx Influenza Vaccine This Season: Yes Medications and Allergies Active Medications: Active Medications Acetaminophen (Tylenol) 650 mg PO Q6H PRN PRN Reason: FEVER Hydrocodone Bitart/Acetaminophen ([place] 5/325) 1 tab PO Q4H PRN PRN Reason: PAIN SCALE 1 TO 5 Acetylcysteine (Mucomyst 20% Neb) 2 ml NEB Q4HR NEB [facility] Last Admin: 07/04/18 07:29 Dose: 2 ml Al Hydroxide/Mg Hydroxide (Milk Of Juan Luis Liq) 30 ml PO Q12H PRN PRN Reason: Mild Constipation Albuterol (Albuterol Neb (Prn)) 2.5 mg NEB Q2HR NEB PRN PRN Reason: SHORTNESS OF BREATH/WHEEZING Last Admin: 07/04/18 07:29 Dose: 2.5 mg Bisacodyl (Dulcolax Supp) 10 mg RECTAL DAILY PRN PRN Reason: SEVERE CONSITIPATION Chlorhexidine Gluconate (Chlorhexidine 2% Cloth) 3 pack TOPICAL DAILY@0400 [facility] Stop: 07/05/18 03:59 Last Admin: 07/04/18 06:19 Dose: Not Given Chlorhexidine Gluconate (Chlorhexidine 2% Cloth) 3 pack TOPICAL DAILY@0400 PRN PRN Reason: Extra cloth needed Stop: 07/05/18 03:59 Dextrose (D50w Vial) 50 ml IV.PUSH UNSCH PRN PRN Reason: PER HYPOGLYCEMIA PROTOCOL Folic Acid (Folic Acid) 1 mg PO DAILY [facility] Last Admin: 07/03/18 08:32 Dose: 1 mg Glucagon (Glucagon Inj) 1 mg OTHER PRN PRN PRN Reason: for Hypoglycemia Protocol Heparin Sodium (Porcine) (Heparin Inj) 2,500 units IV.PUSH UNSCH PRN PRN Reason: aPTT 25-39 Heparin Sodium (Porcine) (Heparin Inj) 5,000 units IV.PUSH UNSCH PRN PRN Reason: aPTT < 25 Heparin Sodium/Dextrose (Heparin/D5w 25,000 U/250 Ml) 25,000 unit in 250 mls @ 0 mls/hr IV.CONT TITRATE PRN; Protocol PRN Reason: Per Protocol Last Admin: 07/03/18 15:09 Dose: 1,100 units/hr, 11 mls/hr Azithromycin 500 mg/ Sodium (Chloride) 250 mls @ 250 mls/hr IV.SIG Q24H [facility] Last Infusion: 07/03/18 17:05 Dose: Infused Lactulose (Lactulose Liq) 30 ml PO DAILY PRN PRN Reason: SEVERE CONSITIPATION Levothyroxine Sodium (Synthroid) 25 mcg PO DAILY@0600 [facility] Last Admin: 07/04/18 05:43 Dose: 25 mcg Methylprednisolone Sodium Succinate (Solumedrol Inj) 40 mg IV.PUSH Q8HR [facility] Last Admin: 07/04/18 05:43 Dose: 40 mg Morphine Sulfate (Morphine Inj) 2 mg IV.PUSH Q2H PRN PRN Reason: PAIN SCALE 6 TO 10 Last Admin: 06/30/18 21:23 Dose: 2 mg Ondansetron HCl (Zofran Inj) 4 mg IV.PUSH Q6H PRN PRN Reason: NAUSEA OR VOMITING Pantoprazole Sodium (Protonix) 40 mg PO DAILY [facility] Last Admin: 07/03/18 08:32 Dose: 40 mg Senna/Docusate Sodium (Janette-Colace) 1 tab PO BID [facility] Last Admin: 07/03/18 22:00 Dose: Not Given Sennosides (Senokot) 17.2 mg PO Q12H PRN PRN Reason: Moderate Constipation Sodium Chloride (Ns Flush) 2 ml IV.FLUSH BID [facility] Last Admin: 07/03/18 22:00 Dose: Not Given Sodium Chloride (Ns Flush) 2 ml IV.FLUSH PRN PRN PRN Reason: FLUSH AFTER USING IV ACCESS Temazepam (Restoril) 15 mg PO HS PRN PRN Reason: INSOMNIA Last Admin: 07/03/18 22:05 Dose: 15 mg Allergies Allergy/AdvReac Type Severity Reaction Status Date / Time No Known Allergies Allergy Unknown Uncoded 10/13/17 07:18 Home Medications Medication Instructions Recorded Confirmed Type folic acid 1 mg PO DAILY 06/29/18 06/29/18 History levothyroxine 25 mcg PO DAILY 06/29/18 06/29/18 History Physical Exam Vital signs: Vital Signs 07/03/18 08:40 07/03/18 09:00 07/03/18 09:50 Temperature Pulse Rate 111 H 109 H Respiratory Rate Blood Pressure Pulse Oximetry 92 L 07/03/18 11:00 07/03/18 12:00 07/03/18 13:00 Temperature 97.4 F L Pulse Rate 97 H 96 H 106 H Respiratory Rate 20 Blood Pressure 119/74 Pulse Oximetry 97 07/03/18 14:00 07/03/18 15:00 07/03/18 15:49 Temperature Pulse Rate 102 H 98 H 90 Respiratory Rate 16 Blood Pressure Pulse Oximetry 07/03/18 16:00 07/03/18 17:00 07/03/18 17:15 Temperature 97.8 F Pulse Rate 104 H 116 H Respiratory Rate 16 Blood Pressure 117/78 Pulse Oximetry 92 L 93 L 07/03/18 17:27 07/03/18 17:37 07/03/18 19:00 Temperature Pulse Rate 110 H 105 H Respiratory Rate Blood Pressure Pulse Oximetry 93 L 07/03/18 19:45 07/03/18 20:00 07/03/18 21:00 Temperature 98.2 F Pulse Rate 100 H 108 H 108 H Respiratory Rate 18 18 Blood Pressure 124/81 Pulse Oximetry 90 L 93 L 07/03/18 22:00 07/03/18 23:00 07/04/18 00:00 Temperature 97.8 F Pulse Rate 102 H 112 H 102 H Respiratory Rate 16 Blood Pressure 119/76 Pulse Oximetry 90 L 07/04/18 00:19 07/04/18 00:35 07/04/18 01:00 Temperature Pulse Rate 103 H 110 H Respiratory Rate 20 Blood Pressure Pulse Oximetry 92 L 07/04/18 02:00 07/04/18 03:00 07/04/18 04:00 Temperature 97.6 F Pulse Rate 104 H 105 H 108 H Respiratory Rate 16 Blood Pressure 136/87 Pulse Oximetry 90 L 07/04/18 05:00 07/04/18 06:00 07/04/18 07:00 Temperature Pulse Rate 96 H 94 H 100 H Respiratory Rate 14 Blood Pressure Pulse Oximetry 07/04/18 07:34 07/04/18 08:31 Temperature 98 F Pulse Rate 92 H Respiratory Rate 17 Blood Pressure 128/89 Pulse Oximetry 94 L 92 L Intake & Output 07/03/18 07/04/18 07/04/18 18:59 06:59 18:59 Intake Total 1760 / 1760 240 / 240 Output Total 950 / 950 500 / 500 Balance 810 / 810 -260 / -260 Weight 70 kg Intake: IV 500 / 500 Heparin/D5W 25,000 U/250 mL 25, 250 / 250 000 unit In 250 ml @ Per Protocol IV.CONT TITRATE PRN Rx #:[id number] Azithromycin Inj 500 MG In NS 250 / 250 Inj 250 ML @ 250 mls/hr IV.SIG Q24H [facility] Rx#:[id number] Oral 1260 / 1260 240 / 240 Output: Urine 950 / 950 500 / 500 Other: Date of Last Bowel Movement 07/03/18 07/03/18 07/03/18 # Bowel Movements 2 - Constitutional mild distress, average body habitus - Routine HEENT Exam Head: Present: normocephalic Eye: Present: EOMI ENT: Present: mucous membranes moist, external ear normal - Routine Neck Exam Present: supple, trachea midline - Routine Respiratory Exam Present: accessory muscle use, decreased breath sounds, diminished air movement Comments: There is a decreased ventilation bilaterally especially on the right lung towards the base. Lungs were clear to auscultation. - Routine Cardiovascular Exam Comments: Heart was regular in rate and rhythm with no murmurs. - Routine Abdominal Exam Present: soft Comments: No hepatosplenomegaly palpated. - Routine Extremities Exam Comments: No lower extremity edema detected - Routine Skin Exam Present: intact - Routine Neurological Exam Present: alert, oriented X3, altered mental status, moving all extremities, vision grossly intact, hearing grossly intact, normal speech - Routine Psychiatric Exam Present: normal affect, normal thought process, cooperative, good insight, good judgment Results - Labs CBC & Chem 7: 07/02/18 06:06 06/30/18 22:17 Labs: Laboratory Results - last 24 hr 07/04/18 05:39 APTT 41.7 H - Imaging Impressions Chest X-Ray 07/03/18 00:00 CONCLUSION: Increasing right-sided pleural effusion and diffuse bilateral infiltrate worsened when compared to previous of 06/30/2018. Venous Doppler Study 07/03/18 00:00 CONCLUSION: 1. Right brachial vein DVT. 2. Soft tissue masses which may reflect jay enlargement or metastatic disease. MRI of the brain 06/30/2018: CONCLUSION: 1. Bilateral cerebral and right cerebellar enhancing lesions characteristic of metastatic disease. Largest lesions and measurements are given above. 2. No evidence of acute infarct or hemorrhage. 3. No significant mass effect or shift of midline structures. CTA of the lungs 06/29/2018: CONCLUSION: 1. Positive for pulmonary embolism, especially on the left side. 2. Metastatic lung disease with multiple bilateral pulmonary nodules and conglomerate masslike consolidation in the right upper lobe measuring up to 5 cm in diameter. Reported history of lung carcinoma. There is AP window, bilateral hilar and subcarinal adenopathy. 3. Moderate right effusion with compressive atelectasis on the right. 4. [id number] in superior vena cava. 5. Compared with PET scan from May 09, 2018 there is progression of metastatic lung disease, adenopathy and right pleural effusion Assessment and Plan - Assessment (1) Adenocarcinoma of lung, stage 4 Code(s): C34.90 - Malignant neoplasm of unspecified part of unspecified bronchus or lung Status: Chronic - Plan Assessment: 57-year-old white male with diagnosis of metastatic lung carcinoma. Patient been evaluated for salvage radiotherapy treatment options. Plan: I have reviewed the MRI of the brain as well as the CTA of the chest independently. I have discussed this case today with Dr. Cabrera. At this point we agreed that the patient will move forward with salvage chemotherapy as soon as they drain his lung. This most likely will happen while the patient is in the hospital. Following the patient will receive salvage radiosurgery to the brain and if possible further radiation therapy to the right hilar area. He has received radiation to this area so his previous doses will have to be accounted and see how much more radiotherapy we could deliver safely to the area. I discussed with the patient's the merits of salvage radiotherapy to the lung and to the brain. I discussed the side effects and complications of her therapy to the brain. I discussed with the patient the side effects and complications of radiosurgery to the brain to include but not limited to: Weakness and fatigue, decreased blood counts, erythema of the skin, necrosis of the skin, decreased hearing loss of hearing, decreased vision loss of vision, brain necrosis which may require the prolonged use of steroids or surgery, brain damage, brain leukoencephalopathy, changes in short-term and long-term memory, bone damage and fracture, loss of hair which could be permanent. After thorough discussion the patient understood everything that was explained. She wants to proceed forward with the treatment. A consent form was signed. Patient is to return for simulation treatment planning. Patient advised if I can be of any further assistance or to please let me know otherwise we will proceed as above. I also discussed the side effects and complications of radiotherapy to the lung. Side effects to the lung to include but limited to: Weakness and fatigue, decreased blood counts, erythema the skin, necrosis of skin, pain of the treated area, bone damage and fracture, costochondritis, lung damage, lung fibrosis, lung pneumonitis, the possibility becoming oxygen dependent, the possibility of becoming pulmonary cripple, heart damage, spinal cord damage, difficulty and pain with swallowing, esophageal strictures which may require dilation, brachial plexus damage. Patient want to move forward for treatments when feasible. All his questions were answered. He was advised if I could be of any further assistance or to please let me know. Dr. Cabrera thank you very much for the referral this patient and allow me to participate in his care. Should you have any further questions or concerns please do not hesitate to contact me. (1) Adenocarcinoma of lung, stage 4 Qualifiers: Laterality: unspecified laterality Qualified Code(s): C34.90 - Malignant neoplasm of unspecified part of unspecified bronchus or lung
--- NOTE | 2018-07-04 09:48 | P.PNONC ---
Subjective Interval history: Patient lying in bed, in no acute distress. He expresses frustration that his Pleurx catheter will not be placed until 2 PM today. He states he is tired of waiting and wants to get treatment started. Patient removes nonrebreather and desaturates rapidly to 79%, once O2 is reapplied he quickly returns to 90's. He denies any SOB. No other complaints at this time. Objective Vital Signs/Intake & Output: Vital Signs 07/03/18 09:50 07/03/18 11:00 07/03/18 12:00 Temperature 97.4 F L Pulse Rate 109 H 97 H 96 H Respiratory Rate 20 Blood Pressure 119/74 Pulse Oximetry 97 07/03/18 13:00 07/03/18 14:00 07/03/18 15:00 Temperature Pulse Rate 106 H 102 H 98 H Respiratory Rate Blood Pressure Pulse Oximetry 07/03/18 15:49 07/03/18 16:00 07/03/18 17:00 Temperature 97.8 F Pulse Rate 90 104 H 116 H Respiratory Rate 16 16 Blood Pressure 117/78 Pulse Oximetry 92 L 07/03/18 17:15 07/03/18 17:27 07/03/18 17:37 Temperature Pulse Rate 110 H Respiratory Rate Blood Pressure Pulse Oximetry 93 L 93 L 07/03/18 19:00 07/03/18 19:45 07/03/18 20:00 Temperature 98.2 F Pulse Rate 105 H 100 H 108 H Respiratory Rate 18 18 Blood Pressure 124/81 Pulse Oximetry 90 L 93 L 07/03/18 21:00 07/03/18 22:00 07/03/18 23:00 Temperature Pulse Rate 108 H 102 H 112 H Respiratory Rate Blood Pressure Pulse Oximetry 07/04/18 00:00 07/04/18 00:19 07/04/18 00:35 Temperature 97.8 F Pulse Rate 102 H 103 H Respiratory Rate 16 20 Blood Pressure 119/76 Pulse Oximetry 90 L 92 L 07/04/18 01:00 07/04/18 02:00 07/04/18 03:00 Temperature Pulse Rate 110 H 104 H 105 H Respiratory Rate Blood Pressure Pulse Oximetry 07/04/18 04:00 07/04/18 05:00 07/04/18 06:00 Temperature 97.6 F Pulse Rate 108 H 96 H 94 H Respiratory Rate 16 Blood Pressure 136/87 Pulse Oximetry 90 L 07/04/18 07:00 07/04/18 07:34 07/04/18 08:31 Temperature 98 F Pulse Rate 100 H 92 H Respiratory Rate 14 17 Blood Pressure 128/89 Pulse Oximetry 94 L 92 L Intake & Output 07/03/18 07/04/18 07/04/18 18:59 06:59 18:59 Intake Total 1760 / 1760 240 / 240 Output Total 950 / 950 500 / 500 Balance 810 / 810 -260 / -260 Weight 70 kg Intake: IV 500 / 500 Heparin/D5W 25,000 U/250 mL 25, 250 / 250 000 unit In 250 ml @ Per Protocol IV.CONT TITRATE PRN Rx #:[id number] Azithromycin Inj 500 MG In NS 250 / 250 Inj 250 ML @ 250 mls/hr IV.SIG Q24H [facility] Rx#:[id number] Oral 1260 / 1260 240 / 240 Output: Urine 950 / 950 500 / 500 Other: Date of Last Bowel Movement 07/03/18 07/03/18 07/03/18 # Bowel Movements 2 Result Diagrams: 07/05/18 10:06 07/05/18 10:06 Laboratory Results: Laboratory Results - last 24 hr 07/04/18 05:39 APTT 41.7 H Culture Results: Microbiology 07/02/18 16:10 Gram Stain - Final Sputum - Expectorated Sputum Sputum Culture - Preliminary Heavy growth normal respiratory consuelo at 24 hours 06/30/18 01:25 Aerobic Blood Culture - Preliminary Blood - Peripheral No growth in 3 days Anaerobic Blood Culture - Preliminary No growth in 3 days 06/30/18 01:20 Aerobic Blood Culture - Preliminary Blood - Peripheral No growth in 3 days Anaerobic Blood Culture - Preliminary No growth in 3 days 06/30/18 00:40 Gram Stain - Final Fluid - Pleural fluid Body Fluid Culture - Final No growth in 72 hours (aerobically and anaerobically) Imaging Studies: Impressions Chest X-Ray 07/03/18 00:00 CONCLUSION: Increasing right-sided pleural effusion and diffuse bilateral infiltrate worsened when compared to previous of 06/30/2018. Venous Doppler Study 07/03/18 00:00 CONCLUSION: 1. Right brachial vein DVT. 2. Soft tissue masses which may reflect jay enlargement or metastatic disease. Medications: Active Medications Generic Name Dose Route Start Last Admin Trade Name Freq PRN Reason Stop Dose Admin Acetylcysteine 2 ml 07/03/18 12:00 07/04/18 07:29 Mucomyst 20% Neb NEB 2 ml Q4HR NEB [facility] Administration Albuterol 2.5 mg 06/29/18 23:43 07/04/18 07:29 Albuterol Neb (Prn) NEB 2.5 mg Q2HR NEB PRN Administration SHORTNESS OF BREATH/WHEEZING Chlorhexidine Gluconate 3 pack 06/30/18 04:00 07/04/18 06:19 Chlorhexidine 2% Cloth TOPICAL 07/05/18 03:59 Not Given DAILY@0400 G[facility] Folic Acid 1 mg 06/30/18 09:00 07/04/18 08:37 Folic Acid PO 1 mg DAILY G[facility] Administration Heparin Sodium/Dextrose 25,000 unit in 250 mls @ 0 mls/hr 06/29/18 21:55 08:55 Heparin/D5w 25,000 U/250 Ml IV.CONT 0 units/hr TITRATE PRN 0 mls/hr Per Protocol Titration Protocol Per Protocol Azithromycin 500 mg/ Sodium 250 mls @ 250 mls/hr 06/30/18 15:00 07/03/18 17: 05 Chloride IV.SIG Infused Q24H [facility] Infusion Levothyroxine Sodium 25 mcg 06/30/18 06:00 07/04/18 05:43 Synthroid PO 25 mcg DAILY@0600 G[facility] Administration Methylprednisolone Sodium Succinate 40 mg 06/30/18 22:00 07/04/18 05:43 Solumedrol Inj IV.PUSH 40 mg Q8HR [facility] Administration Morphine Sulfate 2 mg 06/29/18 23:43 06/30/18 21:23 Morphine Inj IV.PUSH 2 mg Q2H PRN Administration PAIN SCALE 6 TO 10 Pantoprazole Sodium 40 mg 07/02/18 09:00 07/04/18 08:37 Protonix PO 40 mg DAILY [facility] Administration Senna/Docusate Sodium 1 tab 06/30/18 09:00 07/04/18 08:38 Janette-Colace PO Not Given BID [facility] Sodium Chloride 2 ml 06/30/18 09:00 07/04/18 08:38 Ns Flush IV.FLUSH Not Given BID [facility] Temazepam 15 mg 07/02/18 21:00 07/03/18 22:05 Restoril PO 15 mg HS PRN Administration INSOMNIA Objective Remarks: GENERAL: Well-nourished, well-developed male patient, in no acute distress. SKIN: Warm and dry. HEAD: Normocephalic. EYES: No scleral icterus. No injection or drainage. NECK: Supple, trachea midline. CARDIOVASCULAR: Regular rate and rhythm without murmurs. RESPIRATORY: Diminished right base. No accessory muscle use. O2 via nonrebreather. GASTROINTESTINAL: Abdomen soft, non-tender, nondistended. EXTREMITIES: No cyanosis, or edema. MUSCULOSKELETAL: Adequate muscle tone. NEUROLOGICAL: No obvious focal deficit. Awake, alert, and oriented x3. PSYCHIATRIC: Appropriate mood and affect; insight and judgment normal. Assessment/Plan - Plan Mr. Ross is a 57-year-old gentleman with stage IV lung cancer. He was originally diagnosed in 2012, he received carbo, Taxol and Avastin and radiation to the right lung. He was doing well until August 2017, when he developed a large mass in the right anterior forearm, multiple pulmonary masses and axillary lymph nodes. Needle biopsy of the right axilla revealed metastatic poorly differentiated non-small cell lung cancer, EGFR ALK negative. PDL-1 1%. He received 5 cycles of carboplatin, Taxol and Avastin. In May 2018, he had a PET scan which revealed recurrent disease. He had left supraclavicular adenopathy, mediastinal and axillary adenopathy and bony metastasis. He reports his last treatment was 21 days ago with immunotherapy, under the direction of Dr. Cabrera. He is currently admitted to the hospital for shortness of breath, patient found to have large right pleural effusion, thoracentesis done in the ED removed 1500 mL. Patient also found to have PE and DVT. Recommendations: 1. Metastatic poorly differentiated non-small cell lung cancer, MRI head revealed bilateral cerebral and right cerebellar enhancing lesions characteristic of metastatic disease. Largest lesions measuring 2.2 cm and 1.5 cm, additional subcentimeter lesions noted. No evidence of acute infarct or hemorrhage. No significant mass-effect or shift of midline structures. Chemotherapy outpatient with carbo, pemetrexed. 2. Pulmonary embolism and BLE & RUE DVTs, heparin drip currently on hold for Pleurx catheter placement today. No bleeding noted. Recommend continued anticoagulation as long as no bleeding and brain lesions. Will bridge to Lovenox after procedure. 3. MRI revealing characteristic metastatic disease, pending radiation simulation. Continue steroids. 4. Increased oxygen requirements, patient status post thoracentesis on 06/29 with 1500 mL removed. Patient desaturates quickly, currently on nonrebreather. Pulmonary following, plan to Place Pleurx catheter today. 5. Continue to monitor for bleeding. - Attending Statement The exam, history, and the medical decision-making described in the above note were completed with the assistance of the mid-level provider. I reviewed and agree with the findings presented. I attest that I had a [id number] encounter with the patient on the same day, and personally performed and documented my assessment and findings in the medical record. 57 yom with recurrent lung adenocarcinoma. Will plan to initiate therapy with carboplatin and pemetrexed inpatient tomorrow. Case discussed with Dr. Tim. Close follow up in outpatient setting with medical oncology and radiation oncology.
[2018-07-04] MEDS ORDERED: fentaNYL Citrate Inj 100 MCG/2 ML Ampul ONE (14:59)
[2018-07-04] MEDS ORDERED: Lidocaine 1%/Epinephrine 1:100,000 Inj 30 ML Vial ONE (15:29)
[2018-07-04] MEDS ORDERED: ceFAZolin 2 GM Premix Inj 2 GM/50 ML PIGGYBACK IV.SIG ONE (15:43)
--- NOTE | 2018-07-04 17:01 | P.RAD ---
Post Procedure Progress Note - Procedure Information Procedure Date: 07/04/18 Supervising Radiologist: Naman Taveras MD Estimated blood loss (mL): 5 Anesthesia: Conscious Sedation - Plan of Activity Patient to Unit: Nursing Unit Patient Condition: Good See PACS Report for procedural detail/treatment.
[2018-07-04] MEDS: Azithromycin Inj 500 MG in Sodium Chlor 0.9% Inj 250 ML IV.SIG SCH (17:32)
--- NOTE | 2018-07-04 18:49 | IR ---
EXAM DATE: 07/04/2018 5:30 PM EST AGE/SEX: 57 years / Male INDICATIONS: Patient presents with Right Pleural Effusion in need of Tunneled Pleural Catheter place ment. CLINICAL DATA: This is the patient's initial encounter. Patient reports that signs and symptoms have been present for 4 - 6 days and indicates a pain score of 0/10. MEDICAL/SURGICAL HISTORY: . Hypothyroid, Lung Cancer, Pulmonary Embolism, Pleural Effusion . P ort-A-Cath placement, S/P Pericardiocentesis. COMPARISON: No prior exams available for comparison. FLUORO TIME (min): 0.2 IMAGE SERIES: 1 ACCESS SITE: SEDATION TIME (min): 30 MEDICATION(S): 1 mg midazolam (Versed) IV 50 mcg fentanyl (Sublimaze) IV DEVICE(S): 15 [place] Aspiria catheter . . PROCEDURE: 1. Fluoroscopically guided chest tube placement. 2. Conscious sedation with continuous EKG and oximetry monitoring. The risks, benefits and alternatives to the procedure were explained and verbal and written consent w as obtained. The site was prepped in sterile fashion. Full sterile technique was used, including ca p, mask, sterile gloves and gown and a large sterile sheet. Hand hygiene and 2% chlorhexidine and/or betadine/alcohol prep was utilized per protocol for cutaneous antisepsis. The skin and subcutaneous tissues were infiltrated with local anesthetic solution. With fluoroscopic guidance the chest was punctured between the first and second interspace and the pr escribed catheter was placed in the lung apex. Wall suction was applied. Post procedure images demon strate satisfactory position of the tube. The catheter was sutured in place and a Percu-Stay was raj lied. Conscious sedation was performed with the prescribed dosages and duration as above in the presence of an independent trained radiology nurse to assist in the monitoring of the patient. EKG and oximetry remained stable throughout the procedure. The patient tolerated the procedure well and there were n o complications. The patient was sent to post anesthesia recovery in stable condition. CONCLUSION: 1. Uncomplicated chest tube placement as above. Electronically signed by: Naman Taveras MD 07/04/2018 6:47 PM EST
--- NOTE | 2018-07-04 19:06 | P.PN ---
Subjective Interval history: On a NRB mask still. Had pleur X catheter placed. Will have Chemo in am Physical Exam Vital signs: Vital Signs 07/03/18 19:45 07/03/18 20:00 07/03/18 21:00 Temperature 98.2 F Pulse Rate 100 H 108 H 108 H Respiratory Rate 18 18 Blood Pressure 124/81 Pulse Oximetry 90 L 93 L 07/03/18 22:00 07/03/18 23:00 07/04/18 00:00 Temperature 97.8 F Pulse Rate 102 H 112 H 102 H Respiratory Rate 16 Blood Pressure 119/76 Pulse Oximetry 90 L 07/04/18 00:19 07/04/18 00:35 07/04/18 01:00 Temperature Pulse Rate 103 H 110 H Respiratory Rate 20 Blood Pressure Pulse Oximetry 92 L 07/04/18 02:00 07/04/18 03:00 07/04/18 04:00 Temperature 97.6 F Pulse Rate 104 H 105 H 108 H Respiratory Rate 16 Blood Pressure 136/87 Pulse Oximetry 90 L 07/04/18 05:00 07/04/18 06:00 07/04/18 07:00 Temperature Pulse Rate 96 H 94 H 100 H Respiratory Rate 14 Blood Pressure Pulse Oximetry 07/04/18 07:34 07/04/18 08:00 07/04/18 08:31 Temperature 98 F Pulse Rate 106 H 92 H Respiratory Rate 17 Blood Pressure 128/89 Pulse Oximetry 94 L 92 L 07/04/18 09:00 07/04/18 10:00 07/04/18 11:00 Temperature Pulse Rate 102 H 96 H 100 H Respiratory Rate 14 Blood Pressure Pulse Oximetry 07/04/18 12:00 07/04/18 12:33 07/04/18 12:39 Temperature 98.2 F Pulse Rate 110 H 111 H Respiratory Rate 17 Blood Pressure 141/85 H Pulse Oximetry 86 L 89 L 07/04/18 13:00 07/04/18 14:00 07/04/18 16:51 Temperature Pulse Rate 106 H 106 H Respiratory Rate Blood Pressure Pulse Oximetry 96 07/04/18 16:54 07/04/18 17:00 07/04/18 17:05 Temperature 98 F Pulse Rate 95 H 92 H 98 H Respiratory Rate 16 Blood Pressure 144/89 H 139/91 H Pulse Oximetry 97 98 07/04/18 17:15 07/04/18 17:45 07/04/18 18:00 Temperature Pulse Rate 101 H 95 H 90 Respiratory Rate Blood Pressure 150/97 H 140/91 H Pulse Oximetry 94 L 93 L Intake & Output 07/04/18 07/04/18 07/05/18 06:59 18:59 06:59 Intake Total 240 / 240 540 / 540 Output Total 500 / 500 650 / 650 Balance -260 / -260 -110 / -110 Weight 70 kg Intake: IV 300 / 300 Azithromycin Inj 500 MG In NS 250 / 250 Inj 250 ML @ 250 mls/hr IV.SIG Q24H [facility] Rx#:[id number] Ancef 2 GM Premix Inj 2 gm In 50 / 50 50 ml @ 0 mls/hr IV.SIG .STK- MED ONE Rx#:[id number] Oral 240 / 240 240 / 240 Output: Urine 500 / 500 650 / 650 Other: Date of Last Bowel Movement 07/03/18 07/04/18 # Bowel Movements 1 GENERAL: Mid aged W/M alert SKIN: Warm and dry. HEAD: Atraumatic. Normocephalic. EYES: Pupils equal and round. No scleral icterus. No injection or drainage. ENT: No nasal bleeding or discharge. Mucous membranes pink and moist. NECK: Trachea midline. No JVD. CARDIOVASCULAR: Regular rate and rhythm. * RESPIRATORY: No accessory muscle use.Occ Crackles on right . Breath sounds reduced bilaterally. GASTROINTESTINAL: Abdomen soft, non-tender, nondistended. Hepatic and splenic margins not palpable. MUSCULOSKELETAL: Extremities without clubbing, cyanosis, or edema. No obvious deformities. NEUROLOGICAL: Awake and alert. No obvious cranial nerve deficits. Motor grossly within normal limits. Five out of 5 muscle strength in the arms and legs. Normal speech. PSYCHIATRIC: Appropriate mood and affect. Results - Labs CBC & Chem 7: 07/05/18 10:06 07/05/18 10:06 Laboratory Results - last 24 hr 07/04/18 05:39 APTT 41.7 H Microbiology 07/02/18 16:10 Sputum - Expectorated Sputum Gram Stain - Final 07/02/18 16:10 Sputum - Expectorated Sputum Sputum Culture - Final Heavy growth normal respiratory consuelo 06/30/18 01:25 Blood - Peripheral Aerobic Blood Culture - Preliminary No growth in 4 days 06/30/18 01:25 Blood - Peripheral Anaerobic Blood Culture - Preliminary No growth in 4 days 06/30/18 01:20 Blood - Peripheral Aerobic Blood Culture - Preliminary No growth in 4 days 06/30/18 01:20 Blood - Peripheral Anaerobic Blood Culture - Preliminary No growth in 4 days - Imaging Impressions Catheter Placement X-Ray 07/04/18 00:00 CONCLUSION: 1. Uncomplicated chest tube placement as above. Assessment and Plan - Assessment (1) COPD (chronic obstructive pulmonary disease) Code(s): J44.9 - Chronic obstructive pulmonary disease, unspecified Status: Acute (2) Recurrent right pleural effusion Code(s): J90 - Pleural effusion, not elsewhere classified Status: Acute (3) Adenocarcinoma of lung, stage 4 Code(s): C34.90 - Malignant neoplasm of unspecified part of unspecified bronchus or lung Status: Chronic (4) Leukocytosis Code(s): D72.829 - Elevated white blood cell count, unspecified Status: Acute (5) Normocytic anemia Code(s): D64.9 - Anemia, unspecified Status: Chronic (6) Hypothyroidism Code(s): E03.9 - Hypothyroidism, unspecified Status: Acute (7) Elevated INR Code(s): R79.1 - Abnormal coagulation profile Status: Acute (8) Pulmonary embolus Code(s): I26.99 - Other pulmonary embolism without acute cor pulmonale Status : Acute (9) Hypoalbuminemia Code(s): E88.09 - Other disorders of plasma-protein metabolism, not elsewhere classified Status: Acute - Plan 1. Will drain pleural catheter drained every 3rd day 2. O2 NRB mask and Wean to N/C 5 L 3. Duonebs qid. with nebulizer 4. CBC,BMP in am 5. Continue Lovenox 70 mg BID. 6. IS at Bedside q2h (3) Adenocarcinoma of lung, stage 4 Qualifiers: Laterality: unspecified laterality Qualified Code(s): C34.90 - Malignant neoplasm of unspecified part of unspecified bronchus or lung (4) Leukocytosis Qualifiers: Leukocytosis type: unspecified Qualified Code(s): D72.829 - Elevated white blood cell count, unspecified (6) Hypothyroidism Qualifiers: Hypothyroidism type: unspecified Qualified Code(s): E03.9 - Hypothyroidism, unspecified (8) Pulmonary embolus Qualifiers: Pulmonary embolism type: other Chronicity: acute Acute cor pulmonale presence: without acute cor pulmonale Qualified Code(s): I26.99 - Other pulmonary embolism without acute cor pulmonale
[2018-07-04] MEDS: Temazepam 15 MG Capsule PO PRN (21:28)
[2018-07-05] MEDS: MethylPREDNISolone Sod Succinate Inj 40 MG/ML Vial IV.PUSH SCH ×3 (05:40→21:04)
[2018-07-05] MEDS: Folic Acid 1 MG Tablet PO SCH (09:32)
[2018-07-05] MEDS: Senna/Docusate Sodium 8.6/50 MG Tablet PO SCH ×2 (09:32→21:03)
--- NOTE | 2018-07-05 09:56 | P.PNONC ---
Subjective Interval history: Patient sitting up in bed, O2 with nonrebreather. He is in no acute distress. Breathing is not labored. He is status post Pleurx drain to right yesterday, he denies any pain to the area. Patient pending chemotherapy today. Objective Vital Signs/Intake & Output: Vital Signs 07/04/18 10:00 07/04/18 11:00 07/04/18 12:00 Temperature Pulse Rate 96 H 100 H 110 H Respiratory Rate 14 Blood Pressure Pulse Oximetry 07/04/18 12:33 07/04/18 12:39 07/04/18 13:00 Temperature 98.2 F Pulse Rate 111 H 106 H Respiratory Rate 17 Blood Pressure 141/85 H Pulse Oximetry 86 L 89 L 07/04/18 14:00 07/04/18 16:51 07/04/18 16:54 Temperature 98 F Pulse Rate 106 H 95 H Respiratory Rate 16 Blood Pressure 144/89 H Pulse Oximetry 96 97 07/04/18 17:00 07/04/18 17:05 07/04/18 17:15 Temperature Pulse Rate 92 H 98 H 101 H Respiratory Rate Blood Pressure 139/91 H 150/97 H Pulse Oximetry 98 94 L 07/04/18 17:45 07/04/18 18:00 07/04/18 19:00 Temperature Pulse Rate 95 H 90 94 H Respiratory Rate Blood Pressure 140/91 H Pulse Oximetry 93 L 07/04/18 19:07 07/04/18 19:33 07/04/18 20:00 Temperature Pulse Rate 90 95 H 104 H Respiratory Rate 16 Blood Pressure 147/95 H Pulse Oximetry 91 L 94 L 07/04/18 20:37 07/04/18 21:00 07/04/18 22:00 Temperature Pulse Rate 96 H 96 H Respiratory Rate Blood Pressure Pulse Oximetry 92 L 07/04/18 23:00 07/04/18 23:20 07/04/18 23:36 Temperature Pulse Rate 98 H 100 H Respiratory Rate 20 Blood Pressure Pulse Oximetry 95 07/05/18 00:00 07/05/18 01:00 07/05/18 02:00 Temperature Pulse Rate 106 H 100 H 96 H Respiratory Rate Blood Pressure Pulse Oximetry 07/05/18 03:00 07/05/18 03:41 07/05/18 04:00 Temperature Pulse Rate 82 85 Respiratory Rate Blood Pressure Pulse Oximetry 97 07/05/18 05:00 07/05/18 06:00 07/05/18 07:43 Temperature Pulse Rate 83 78 61 Respiratory Rate 27 H Blood Pressure Pulse Oximetry 07/05/18 08:00 07/05/18 08:44 Temperature 98.0 F Pulse Rate 95 H Respiratory Rate 26 H Blood Pressure 127/81 Pulse Oximetry 95 95 Intake & Output 07/04/18 07/05/18 07/05/18 18:59 06:59 18:59 Intake Total 540 / 540 240 / 240 Output Total 650 / 650 525 / 525 Balance -110 / -110 -285 / -285 Weight 65.7 kg Intake: IV 300 / 300 Azithromycin Inj 500 MG In NS 250 / 250 Inj 250 ML @ 250 mls/hr IV.SIG Q24H ANIKET Rx#:[id number] Ancef 2 GM Premix Inj 2 gm In 50 / 50 50 ml @ 0 mls/hr IV.SIG .STK- MED ONE Rx#:[id number] Oral 240 / 240 240 / 240 Output: Urine 650 / 650 525 / 525 Other: Date of Last Bowel Movement 07/04/18 07/04/18 # Bowel Movements 1 0 Result Diagrams: 07/02/18 06:06 06/30/18 22:17 Culture Results: Microbiology 07/02/18 16:10 Gram Stain - Final Sputum - Expectorated Sputum Sputum Culture - Final Heavy growth normal respiratory consuelo 06/30/18 01:25 Aerobic Blood Culture - Preliminary Blood - Peripheral No growth in 4 days Anaerobic Blood Culture - Preliminary No growth in 4 days 06/30/18 01:20 Aerobic Blood Culture - Preliminary Blood - Peripheral No growth in 4 days Anaerobic Blood Culture - Preliminary No growth in 4 days 06/30/18 00:40 Gram Stain - Final Fluid - Pleural fluid Body Fluid Culture - Final No growth in 72 hours (aerobically and anaerobically) Imaging Studies: Impressions Catheter Placement X-Ray 07/04/18 00:00 CONCLUSION: 1. Uncomplicated chest tube placement as above. Medications: Active Medications Generic Name Dose Route Start Last Admin Trade Name Freq PRN Reason Stop Dose Admin Acetylcysteine 2 ml 07/03/18 12:00 07/05/18 07:36 Mucomyst 20% Neb NEB 2 ml Q4HR NEB ANIKET Administration Albuterol 2.5 mg 06/29/18 23:43 07/04/18 07:29 Albuterol Neb (Prn) NEB 2.5 mg Q2HR NEB PRN Administration SHORTNESS OF BREATH/WHEEZING Albuterol 1 ampul 07/04/18 12:00 07/05/18 07:36 Duoneb Neb (Aniket) NEB 1 ampul Q4HR NEB ANIKET Administration Folic Acid 1 mg 06/30/18 09:00 07/05/18 09:32 Folic Acid PO 1 mg DAILY ANIKET Administration Heparin Sodium/Dextrose 25,000 unit in 250 mls @ 0 mls/hr 06/29/18 21:55 08:55 Heparin/D5w 25,000 U/250 Ml IV.CONT 0 units/hr TITRATE PRN 0 mls/hr Per Protocol Titration Protocol Per Protocol Azithromycin 500 mg/ Sodium 250 mls @ 250 mls/hr 06/30/18 15:00 07/04/18 18: 38 Chloride IV.SIG Infused Q24H ANIKET Infusion Levothyroxine Sodium 25 mcg 06/30/18 06:00 07/05/18 05:40 Synthroid PO 25 mcg DAILY@0600 ANIKET Administration Methylprednisolone Sodium Succinate 40 mg 06/30/18 22:00 07/05/18 05:40 Solumedrol Inj IV.PUSH 40 mg Q8HR ANIKET Administration Morphine Sulfate 2 mg 06/29/18 23:43 06/30/18 21:23 Morphine Inj IV.PUSH 2 mg Q2H PRN Administration PAIN SCALE 6 TO 10 Pantoprazole Sodium 40 mg 07/02/18 09:00 07/05/18 09:32 Protonix PO 40 mg DAILY ANIKET Administration Senna/Docusate Sodium 1 tab 06/30/18 09:00 07/05/18 09:32 Janette-Colace PO Not Given BID ANIKET Sodium Chloride 2 ml 06/30/18 09:00 07/05/18 09:32 Ns Flush IV.FLUSH 2 ml BID ANIKET Administration Temazepam 15 mg 07/02/18 21:00 07/04/18 21:28 Restoril PO 15 mg HS PRN Administration INSOMNIA Objective Remarks: GENERAL: Well-nourished, well-developed male patient, in no acute distress. SKIN: Warm and dry. HEAD: Normocephalic. EYES: No scleral icterus. No injection or drainage. NECK: Supple, trachea midline. CARDIOVASCULAR: Regular rate and rhythm without murmurs. RESPIRATORY: Crackles in right base. No accessory muscle use. Nonrebreather at 15 L. PleurX RT-drsg dry/intact. GASTROINTESTINAL: Abdomen soft, non-tender, nondistended. EXTREMITIES: No cyanosis, or edema. Right arm > Left. MUSCULOSKELETAL: Adequate muscle tone. NEUROLOGICAL: No obvious focal deficit. Awake, alert, and oriented x3. PSYCHIATRIC: Appropriate mood and affect; insight and judgment normal. Assessment/Plan - Plan Mr. Ross is a 57-year-old gentleman with stage IV lung cancer. He was originally diagnosed in 2012, he received carbo, Taxol and Avastin and radiation to the right lung. He was doing well until August 2017, when he developed a large mass in the right anterior forearm, multiple pulmonary masses and axillary lymph nodes. Needle biopsy of the right axilla revealed metastatic poorly differentiated non-small cell lung cancer, EGFR ALK negative. PDL-1 1%. He received 5 cycles of carboplatin, Taxol and Avastin. In May 2018, he had a PET scan which revealed recurrent disease. He had left supraclavicular adenopathy, mediastinal and axillary adenopathy and bony metastasis. He reports his last treatment was 21 days ago with immunotherapy, under the direction of Dr. Cabrera. He is currently admitted to the hospital for shortness of breath, patient found to have large right pleural effusion, thoracentesis done in the ED removed 1500 mL. Patient also found to have PE and DVT. Recommendations: 1. Metastatic poorly differentiated non-small cell lung cancer, MRI head revealed bilateral cerebral and right cerebellar enhancing lesions characteristic of metastatic disease. Largest lesions measuring 2.2 cm and 1.5 cm, additional subcentimeter lesions noted. No evidence of acute infarct or hemorrhage. No significant mass-effect or shift of midline structures. Chemotherapy will be started today with carbo, pemetrexed. 2. Pulmonary embolism and BLE & RUE DVTs, will start therapeutic Lovenox at 70 mg twice daily. 3. MRI revealing characteristic metastatic disease, pending radiation simulation. Continue steroids. 4. Increased oxygen requirements, patient status post thoracentesis on 06/29 with 1500 mL removed, s/p PleurX drain placement yesterday. 5. Continue to monitor for bleeding.
--- NOTE | 2018-07-05 10:49 | P.PNIM ---
Subjective Interval history: feels better eager for home. Physical Exam Vital signs: Last Vital Signs Temp 98.0 F 07/05/18 08:00 Pulse 95 H 07/05/18 08:00 Resp 26 H 07/05/18 08:00 BP 127/81 07/05/18 08:00 Pulse Ox 95 07/05/18 08:44 Narrative: heart reg lung. improved air entry right chest pleur x catheter/tubing. abd s/nt ext no edema Results Labs CBC & Chem 7: 07/02/18 06:06 06/30/18 22:17 Assessment and Plan Assessment (1) Adenocarcinoma of lung, stage 4: Code(s): C34.90 - Malignant neoplasm of unspecified part of unspecified bronchus or lung Status: Chronic Plan Pt with stage 4 adenocarcinoma presents with respiratory distress brain mets. mediastinal/hilar lymphadenopathy. found to have a large malignant right pleural effusion. 1500ml thoracentesis ..now with reaccumulation and hypoxia. nrb. left lung pulmonary emboli. dvt's areas of groundglass and consolidation bilaterally lung 2d echo. EF 55%, ?tamponade or collapse of right atrium per official reading. Pleur X right chest catheter placed 07/04 for recurrent malignant effusion pulmonology and oncology following persistent hypoxia. wean down to nasal cannula for hopefully home soon off iv heparin. start lovenox today on steroids/nebs/abx per pulmonary. added mucomyst. IS added anxiolytic awaiting further chemo and radiation decisions by med/ radiation oncology advanced diet. oob with PT f/u pending studies. chemotherapy today pt eager for dc soon after chemo. need to get o2 requirement down. plan walk test. Progress Note: Quality VTE Deep Vein Thrombosis/Pulmonary Embolism Present on Admission: Yes _ (1) Adenocarcinoma of lung, stage 4 Qualifiers: Laterality: unspecified laterality Qualified Code(s): C34.90 - Malignant neoplasm of unspecified part of unspecified bronchus or lung
[2018-07-05 10:52] LABS: Hematocrit 33.9 % (39.0-51.0); Lymph # (Auto) 0.6 th/mm3 (1.0-4.8); Lymph % (Auto) 4.2 % (9.0-44.0); Mean Corpuscular HGB Conc 32.5 % (32.0-36.0); Mean Corpuscular Hemoglobin 30.3 pg (27.0-34.0); Mean Corpuscular Volume 93.2 fL (80.0-100.0); Mean Platelet Volume 6.2 fL (7.0-11.0); Mono # (Auto) 0.4 th/mm3 (0.0-0.9); Neut # (Auto) 13.1 th/mm3 (1.8-7.7); Neut % (Auto) 92.8 % (16.0-70.0); Platelet Count 293 th/mm3 (150-450); Red Blood Count 3.64 mil/mm3 (4.50-5.90); Red Cell Distribution Width 14.6 % (11.6-17.2); White Blood Count 14.1 th/mm3 (4.0-11.0)
[2018-07-05] MEDS: Enoxaparin Inj 80 MG/0.8 ML Syringe SQ SCH ×2 (10:57→21:05)
[2018-07-05 11:14] LABS: Alanine Aminotransferase 38 U/L (12-78); Albumin 1.8 g/dL (3.4-5.0); Anion Gap 3 meq/L (5-15); Aspartate Aminotransferase 28 U/L (15-37); Blood Urea Nitrogen 27 mg/dL (7-18); Calcium 8.2 mg/dL (8.5-10.1); Carbon Dioxide 34.2 meq/L (21.0-32.0); Chloride 106 meq/L (98-107); Glomerular Filtration Rate Greater Than 89 mL/min (>89); Glucose,Random 161 mg/dL (74-106); Potassium 4.3 meq/L (3.5-5.1); Sodium 143 meq/L (136-145)
[2018-07-05 11:16] LABS: Alkaline Phosphatase 84 U/L (45-117)
[2018-07-05] MEDS ORDERED: PEMETREXED IV.SIG ONE (14:30)
[2018-07-05] MEDS ORDERED: SODIUM CHLOR 0.9% IV.SIG ONE (14:30)
[2018-07-05] MEDS: Azithromycin Inj 500 MG in Sodium Chlor 0.9% Inj 250 ML IV.SIG SCH (15:29)
[2018-07-05] MEDS ORDERED: Dexamethasone Inj 20 MG, Granisetron Inj 1 MG in Sodium Chlor 0.9% Inj 50 ML IV.SIG ONE ×2 (16:00)
[2018-07-05] MEDS ORDERED: CARBOplatin Inj 750 MG in Sodium Chlor 0.9% Inj 250 ML IV.SIG ONE (17:00)
[2018-07-05] MEDS: Temazepam 15 MG Capsule PO PRN (23:40)
[2018-07-06] MEDS: MethylPREDNISolone Sod Succinate Inj 40 MG/ML Vial IV.PUSH SCH ×3 (06:40→21:41)
[2018-07-06] MEDS: Senna/Docusate Sodium 8.6/50 MG Tablet PO SCH ×2 (08:30→21:49)
[2018-07-06] MEDS: Folic Acid 1 MG Tablet PO SCH (08:30)
[2018-07-06] MEDS: Enoxaparin Inj 80 MG/0.8 ML Syringe SQ SCH ×2 (08:30→21:41)
[2018-07-06] MEDS: Azithromycin Inj 500 MG in Sodium Chlor 0.9% Inj 250 ML IV.SIG SCH (14:45)
--- NOTE | 2018-07-06 15:28 | P.PNIM ---
Subjective Interval history: Pt is anxious to go home but is still on 6L of supplemental O2 Physical Exam Vital signs: Last Vital Signs Temp 96.1 F L 07/06/18 12:00 Pulse 103 H 07/06/18 12:45 Resp 16 07/06/18 12:45 BP 110/63 07/06/18 12:00 Pulse Ox 93 L 07/06/18 13:20 Narrative: heart reg lung. improved air entry right chest pleur x catheter/tubing. abd s/nt ext no edema Results Labs CBC & Chem 7: 07/07/18 03:50 07/07/18 03:50 Imaging Chest X-Ray 06/29/18 21:52 CONCLUSION: Worsening volume loss and patchy consolidation of the right lung including a somewhat masslike area in the region of the right hilum. Right hemidiaphragm is now elevated. CT pulmonary angiogram is pending. Chest CTA 06/29/18 21:53 CONCLUSION: 1. Positive for pulmonary embolism, especially on the left side. 2. Metastatic lung disease with multiple bilateral pulmonary nodules and conglomerate masslike consolidation in the right upper lobe measuring up to 5 cm in diameter. Reported history of lung carcinoma. There is AP window, bilateral hilar and subcarinal adenopathy. 3. Moderate right effusion with compressive atelectasis on the right. 4. Hqkxka-n-Mumu in superior vena cava. 5. Compared with PET scan from May 09, 2018 there is progression of metastatic lung disease, adenopathy and right pleural effusion. Chest X-Ray 06/30/18 00:00 CONCLUSION: Right thoracentesis with near complete resolution of right pleural effusion and improved right-sided airspace disease. Uvaygz-q-Hsoo tip in superior vena cava. Head MRI 06/30/18 00:00 CONCLUSION: 1. Bilateral cerebral and right cerebellar enhancing lesions characteristic of metastatic disease. Largest lesions and measurements are given above. 2. No evidence of acute infarct or hemorrhage. 3. No significant mass effect or shift of midline structures. Venous Doppler Study 06/30/18 00:00 CONCLUSION: 1. Bilateral DVT 2. Nonocclusive thrombus is identified in both superficial femoral veins and right popliteal vein. 3. Occlusive thrombus is identified in the left popliteal vein and both proximal calves. Chest X-Ray 06/30/18 08:00 CONCLUSION: Slight worsening in aeration Chest X-Ray 07/03/18 00:00 CONCLUSION: Increasing right-sided pleural effusion and diffuse bilateral infiltrate worsened when compared to previous of 06/30/2018. Venous Doppler Study 07/03/18 00:00 CONCLUSION: 1. Right brachial vein DVT. 2. Soft tissue masses which may reflect jay enlargement or metastatic disease. Catheter Placement X-Ray 07/04/18 00:00 CONCLUSION: 1. Uncomplicated chest tube placement as above. Assessment and Plan Plan - Pt is a 57 y/o male with stage IV lung cancer. He was originally diagnosed in 2012, he received carbo, Taxol and Avastin and radiation to the right lung. He was doing well until August 2017, when he developed a large mass in the right anterior forearm, multiple pulmonary masses and axillary lymph nodes. Needle biopsy of the right axilla revealed metastatic poorly differentiated non- small cell lung cancer. He received 5 cycles of carboplatin, Taxol and Avastin. In May 2018, he had a PET scan which revealed recurrent disease. He had left supraclavicular adenopathy, mediastinal and axillary adenopathy and bony metastasis. - Pt was admitted to the hospital for SOB and was found to have large right pleural effusion - Thoracentesis was performed on 06/29/18 by the supervisor plasma with removal of 1500 mL. Pt did have reaccumulation of the fluid and hypoxia. - Patient also found to have left lung PE and Right brachial vein DVT. - CTA Chest (06/29/18): 1. Positive for pulmonary embolism, especially on the left side. 2. Metastatic lung disease with multiple bilateral pulmonary nodules and conglomerate masslike consolidation in the right upper lobe measuring up to 5 cm in diameter. Reported history of lung carcinoma. There is AP window, bilateral hilar and subcarinal adenopathy. 3. Moderate right effusion with compressive atelectasis on the right. 4. Rkahuh-j-Usma in superior vena cava. 5. Compared with PET scan from May 09, 2018 there is progression of metastatic lung disease, adenopathy and right pleural effusion. - Medical Oncology and Radiation Oncology are following. - MRI head (06/30/18) revealed bilateral cerebral and right cerebellar enhancing lesions characteristic of metastatic disease. Largest lesions measuring 2.2 cm and 1.5 cm, additional subcentimeter lesions noted. No evidence of acute infarct or hemorrhage. No significant mass-effect or shift of midline structures. - 2D echo (06/30): - Normal left ventricular size. Wall thickness is normal. The left ventricular systolic function is normal with an estimated ejection fraction in the range of 55-60%. - Possible diastolic collapse of the right atrium in systole suggesting possible tamponade. - Trace mitral valve regurgitation. - The estimated pulmonary arterial pressure is 45 mmHg. - There is a small pericardial effusion present. The possibility of hemodynamic compromise cannot be excluded on the basis of the available images - Chemotherapy was started on 07/05 with carbo, pemetrexed. - Pt was started on therapeutic Lovenox at 70 mg twice daily. - Pending radiation simulation. - Continue steroids. - Pt has had increased oxygen requirements and for recurrent malignant effusion , so had PleurX drain placement on 07/04. - Pt currently on 6L supplemental O2 via [place] - Cont. on Solu-Medrol 40mg Q8H/nebs/abx per pulmonary. - COnt. Mucomyst. - IS - Cont. anxiolytic PRN - DANIELITO - OOB with PT - f/u pending studies. - Pt is eager for dc soon after chemo but need to get o2 requirement down. Progress Note: Quality VTE Deep Vein Thrombosis/Pulmonary Embolism Present on Admission: Yes
--- NOTE | 2018-07-06 18:10 | P.PN ---
Subjective Interval history: Started on chemo.C/O some SOB. Will go for radiation next week. Now off the NRB mask On N/C 6 L Physical Exam Vital signs: Vital Signs 07/05/18 19:00 07/05/18 19:49 07/05/18 20:00 Temperature 97.9 F Pulse Rate 96 H 90 90 Respiratory Rate 16 Blood Pressure 128/71 Pulse Oximetry 96 07/05/18 20:05 07/05/18 21:00 07/05/18 22:00 Temperature Pulse Rate 90 88 Respiratory Rate Blood Pressure Pulse Oximetry 99 07/05/18 23:00 07/05/18 23:25 07/05/18 23:33 Temperature 97.5 F L Pulse Rate 92 H 84 91 H Respiratory Rate 18 21 Blood Pressure 119/80 Pulse Oximetry 97 07/06/18 00:04 07/06/18 01:00 07/06/18 02:00 Temperature Pulse Rate 92 H 88 76 Respiratory Rate Blood Pressure Pulse Oximetry 07/06/18 03:00 07/06/18 04:00 07/06/18 04:02 Temperature 97.7 F Pulse Rate 76 89 19 L Respiratory Rate 20 Blood Pressure 137/79 Pulse Oximetry 98 07/06/18 05:00 07/06/18 06:00 07/06/18 08:00 Temperature 97.6 F Pulse Rate 74 72 95 H Respiratory Rate 14 Blood Pressure 114/72 Pulse Oximetry 97 07/06/18 08:48 07/06/18 10:00 07/06/18 12:00 Temperature 96.1 F L Pulse Rate 85 104 H 115 H Respiratory Rate 16 13 Blood Pressure 110/63 Pulse Oximetry 97 96 07/06/18 12:45 07/06/18 13:20 07/06/18 16:23 Temperature Pulse Rate 103 H 106 H Respiratory Rate 16 16 Blood Pressure Pulse Oximetry 93 L 94 L 07/06/18 16:40 Temperature 97.9 F Pulse Rate 110 H Respiratory Rate 16 Blood Pressure 118/68 Pulse Oximetry 94 L Intake & Output 07/05/18 07/06/18 07/06/18 18:59 06:59 18:59 Intake Total 1006 / 1006 325 / 325 Output Total 400 / 400 850 / 850 Balance 606 / 606 -525 / -525 Weight 65.5 kg Intake: IV 406 / 406 325 / 325 Azithromycin Inj 500 MG In NS 250 / 250 Inj 250 ML @ 250 mls/hr IV.SIG Q24H GAVIOTA Rx#:[id number] Paraplatin Inj 750 MG In NS Inj 325 / 325 250 ML @ 650 mls/hr IV.SIG ONCE ONE Rx#:[id number] Decadron Inj 20 MG Kytril Inj 1 56 / 56 MG In NS Inj 50 ML @ 168 mls/ hr IV.SIG ONCE ONE Rx#:[id number] Alimta Inj 855 MG In NS Inj 100 100 / 100 ML @ 600 mls/hr IV.SIG ONCE ONE Rx#:[id number] Oral 600 / 600 Output: Urine 400 / 400 850 / 850 Other: Date of Last Bowel Movement 07/05/18 GENERAL: Mid aged w/M alert in no distress SKIN: Warm and dry. HEAD: Normocephalic. EYES: No scleral icterus. No injection or drainage. NECK: Supple, trachea midline. No JVD or lymphadenopathy. CARDIOVASCULAR: Regular rate and rhythm without murmurs, gallops, or rubs. RESPIRATORY: Breath sounds decreased on Right. No accessory muscle use.Occ wheeze. GASTROINTESTINAL: Abdomen soft, non-tender, nondistended. MUSCULOSKELETAL: No cyanosis, or edema. BACK: Nontender without obvious deformity. No CVA tenderness. Results - Labs CBC & Chem 7: 07/05/18 10:06 07/05/18 10:06 Assessment and Plan - Assessment (1) COPD (chronic obstructive pulmonary disease) Code(s): J44.9 - Chronic obstructive pulmonary disease, unspecified Status: Acute (2) Recurrent right pleural effusion Code(s): J90 - Pleural effusion, not elsewhere classified Status: Acute (3) Adenocarcinoma of lung, stage 4 Code(s): C34.90 - Malignant neoplasm of unspecified part of unspecified bronchus or lung Status: Chronic (4) Leukocytosis Code(s): D72.829 - Elevated white blood cell count, unspecified Status: Acute (5) Normocytic anemia Code(s): D64.9 - Anemia, unspecified Status: Chronic (6) Hypothyroidism Code(s): E03.9 - Hypothyroidism, unspecified Status: Acute (7) Elevated INR Code(s): R79.1 - Abnormal coagulation profile Status: Acute (8) Pulmonary embolus Code(s): I26.99 - Other pulmonary embolism without acute cor pulmonale Status : Acute (9) Hypoalbuminemia Code(s): E88.09 - Other disorders of plasma-protein metabolism, not elsewhere classified Status: Acute - Plan 1. Will drain pleural catheter drained every 3rd day 2. O2 Wean to N/C 5 L 3. Duonebs qid. with nebulizer 4. Taper solumedrol to 40 Mg BID and stop in 2 days 5. Cont lovenox 70 mg bid. 6. IS at Bedside q2h (3) Adenocarcinoma of lung, stage 4 Qualifiers: Laterality: unspecified laterality Qualified Code(s): C34.90 - Malignant neoplasm of unspecified part of unspecified bronchus or lung (4) Leukocytosis Qualifiers: Leukocytosis type: unspecified Qualified Code(s): D72.829 - Elevated white blood cell count, unspecified (6) Hypothyroidism Qualifiers: Hypothyroidism type: unspecified Qualified Code(s): E03.9 - Hypothyroidism, unspecified (8) Pulmonary embolus Qualifiers: Pulmonary embolism type: other Chronicity: acute Acute cor pulmonale presence: without acute cor pulmonale Qualified Code(s): I26.99 - Other pulmonary embolism without acute cor pulmonale
--- NOTE | 2018-07-06 19:16 | P.PNONC ---
Subjective Interval history: Resting comfortably in bed. No distress Objective Vital Signs/Intake & Output: Vital Signs 07/05/18 19:49 07/05/18 20:00 07/05/18 20:05 Temperature 97.9 F Pulse Rate 90 90 Respiratory Rate 16 Blood Pressure 128/71 Pulse Oximetry 96 99 07/05/18 21:00 07/05/18 22:00 07/05/18 23:00 Temperature Pulse Rate 90 88 92 H Respiratory Rate Blood Pressure Pulse Oximetry 07/05/18 23:25 07/05/18 23:33 07/06/18 00:04 Temperature 97.5 F L Pulse Rate 84 91 H 92 H Respiratory Rate 18 21 Blood Pressure 119/80 Pulse Oximetry 97 07/06/18 01:00 07/06/18 02:00 07/06/18 03:00 Temperature Pulse Rate 88 76 76 Respiratory Rate Blood Pressure Pulse Oximetry 07/06/18 04:00 07/06/18 04:02 07/06/18 05:00 Temperature 97.7 F Pulse Rate 89 19 L 74 Respiratory Rate 20 Blood Pressure 137/79 Pulse Oximetry 98 07/06/18 06:00 07/06/18 08:00 07/06/18 08:48 Temperature 97.6 F Pulse Rate 72 95 H 85 Respiratory Rate 14 16 Blood Pressure 114/72 Pulse Oximetry 97 97 07/06/18 10:00 07/06/18 12:00 07/06/18 12:45 Temperature 96.1 F L Pulse Rate 104 H 115 H 103 H Respiratory Rate 13 16 Blood Pressure 110/63 Pulse Oximetry 96 07/06/18 13:20 07/06/18 16:23 07/06/18 16:40 Temperature 97.9 F Pulse Rate 106 H 110 H Respiratory Rate 16 16 Blood Pressure 118/68 Pulse Oximetry 93 L 94 L 94 L Intake & Output 07/06/18 07/06/18 07/07/18 06:59 18:59 06:59 Intake Total 325 / 325 610 / 610 Output Total 850 / 850 450 / 450 Balance -525 / -525 160 / 160 Weight 65.5 kg Intake: IV 325 / 325 250 / 250 Azithromycin Inj 500 MG In NS 250 / 250 Inj 250 ML @ 250 mls/hr IV.SIG Q24H [facility] Rx#:[id number] Paraplatin Inj 750 MG In NS Inj 325 / 325 250 ML @ 650 mls/hr IV.SIG ONCE ONE Rx#:[id number] Oral 360 / 360 Output: Urine 850 / 850 450 / 450 Result Diagrams: 07/05/18 10:06 07/05/18 10:06 Culture Results: Microbiology 06/30/18 01:25 Aerobic Blood Culture - Final Blood - Peripheral No growth in 5 days Anaerobic Blood Culture - Final No growth in 5 days 06/30/18 01:20 Aerobic Blood Culture - Final Blood - Peripheral No growth in 5 days Anaerobic Blood Culture - Final No growth in 5 days 07/02/18 16:10 Gram Stain - Final Sputum - Expectorated Sputum Sputum Culture - Final Heavy growth normal respiratory consuelo Medications: Active Medications Generic Name Dose Route Start Last Admin Trade Name Freq PRN Reason Stop Dose Admin Acetylcysteine 2 ml 07/03/18 12:00 07/06/18 16:19 Mucomyst 20% Neb NEB 2 ml Q4HR NEB GAVIOTA Administration Albuterol 2.5 mg 06/29/18 23:43 07/04/18 07:29 Albuterol Neb (Prn) NEB 2.5 mg Q2HR NEB PRN Administration SHORTNESS OF BREATH/WHEEZING Albuterol 1 ampul 07/04/18 12:00 07/06/18 16:20 Duoneb Neb (Gaviota) NEB 1 ampul Q4HR NEB GAVIOTA Administration Enoxaparin Sodium 70 mg 07/05/18 09:45 07/06/18 08:30 Lovenox Inj SQ 70 mg Q12HR GAVIOTA Administration Folic Acid 1 mg 06/30/18 09:00 07/06/18 08:30 Folic Acid PO 1 mg DAILY GAVIOTA Administration Levothyroxine Sodium 25 mcg 06/30/18 06:00 07/06/18 06:40 Synthroid PO 25 mcg DAILY@0600 GAVIOTA Administration Morphine Sulfate 2 mg 06/29/18 23:43 06/30/18 21:23 Morphine Inj IV.PUSH 2 mg Q2H PRN Administration PAIN SCALE 6 TO 10 Pantoprazole Sodium 40 mg 07/02/18 09:00 07/06/18 08:30 Protonix PO 40 mg DAILY GAVIOTA Administration Senna/Docusate Sodium 1 tab 06/30/18 09:00 07/06/18 08:30 Janette-Colace PO 1 tab BID GAVIOTA Administration Sodium Chloride 2 ml 06/30/18 09:00 07/06/18 08:31 Ns Flush IV.FLUSH 2 ml BID GAVIOTA Administration Temazepam 15 mg 07/02/18 21:00 07/05/18 23:40 Restoril PO 15 mg HS PRN Administration INSOMNIA Objective Remarks: GENERAL: chronically ill appearing patient. SKIN: Warm and dry. HEAD: Normocephalic. EYES: No scleral icterus. No injection or drainage. NECK: Supple, trachea midline. No JVD or lymphadenopathy. LYMPHATIC: No adenopathy. CARDIOVASCULAR: Regular rate and rhythm without murmurs. RESPIRATORY: No accessory muscle use. GASTROINTESTINAL: Abdomen soft, non-tender, nondistended. EXTREMITIES: No cyanosis, or edema. MUSCULOSKELETAL: Adequate muscle tone. NEUROLOGICAL: No obvious focal deficit. Awake, alert, and oriented x3. PSYCHIATRIC: Appropriate mood and affect; insight and judgment normal. Assessment/Plan - Plan 1. Metastatic poorly differentiated non-small cell lung cancer: with progression on carboplatin/paclitaxel and pembrolizumab. Carboplatin, pemetrexed given on 07/05/2018. 2. Pulmonary embolism and BLE & RUE DVTs: continue lovenox injection.
[2018-07-06] MEDS: Temazepam 15 MG Capsule PO PRN (21:41)
[2018-07-07 04:35] LABS: Baso % (Auto) 0.1 % (0.0-2.0); Hematocrit 27.7 % (39.0-51.0); Hemoglobin 9.1 gm/dL (13.0-17.0); Lymph # (Auto) 0.6 th/mm3 (1.0-4.8); Lymph % (Auto) 4.2 % (9.0-44.0); Mean Corpuscular HGB Conc 32.9 % (32.0-36.0); Mean Corpuscular Hemoglobin 30.3 pg (27.0-34.0); Mean Corpuscular Volume 92.2 fL (80.0-100.0); Mean Platelet Volume 6.3 fL (7.0-11.0); Mono # (Auto) 0.3 th/mm3 (0.0-0.9); Mono % (Auto) 2.2 % (0.0-8.0); Neut # (Auto) 13.9 th/mm3 (1.8-7.7); Neut % (Auto) 93.5 % (16.0-70.0); Platelet Count 248 th/mm3 (150-450); Red Blood Count 3.01 mil/mm3 (4.50-5.90); Red Cell Distribution Width 14.3 % (11.6-17.2); White Blood Count 14.9 th/mm3 (4.0-11.0)
[2018-07-07 05:02] LABS: Alanine Aminotransferase 44 U/L (12-78); Albumin 1.4 g/dL (3.4-5.0); Alkaline Phosphatase 66 U/L (45-117); Anion Gap 4 meq/L (5-15); Aspartate Aminotransferase 27 U/L (15-37); Blood Urea Nitrogen 22 mg/dL (7-18); Calcium 6.4 mg/dL (8.5-10.1); Carbon Dioxide 30.5 meq/L (21.0-32.0); Chloride 110 meq/L (98-107); Glomerular Filtration Rate Greater Than 89 mL/min (>89); Glucose,Random 102 mg/dL (74-106); Potassium 3.7 meq/L (3.5-5.1); Sodium 144 meq/L (136-145); Total Protein 3.9 g/dL (6.4-8.2)
[2018-07-07] MEDS: Enoxaparin Inj 80 MG/0.8 ML Syringe SQ SCH ×2 (08:46→22:11)
[2018-07-07] MEDS: Folic Acid 1 MG Tablet PO SCH (08:46)
[2018-07-07] MEDS: MethylPREDNISolone Sod Succinate Inj 40 MG/ML Vial IV.PUSH SCH (08:46)
[2018-07-07] MEDS: Senna/Docusate Sodium 8.6/50 MG Tablet PO SCH ×2 (08:46→22:12)
--- NOTE | 2018-07-07 11:50 | P.DIET ---
Nutritional Evaluation Type of nutrition evaluation: follow-up Nutrition consult regarding: Diet Evaluation Nutrition screening: Weight Loss > 10 lbs Screening comments: 06/30 WLS Objective - Diagnosis PE, hypoxia, pleural effusion - Objective % IBW: 109 (IBW: 136lb) Body Weight Used for Calculations: Actual Energy Needs - Lower Range (kCal/kg): 22 Energy Needs - Upper Range (kCal/kg): 28 Lower Limit kCal/kg (kCals): 1,478 Upper Limit kCal/kg (kCals): 1,882 Lower Limit Protein Factor (Grams per Kg): 1.1 Upper Limit Protein Factor (Grams per Kg): 1.3 Lower Protein Needs (Protein): 74 Upper Protein Needs (Protein): 87 Dietitian Reviewed in Medical Record: Current diet, Curent medications, Intake & Output, Labs, Medical history Diet Order: Clear liquid diet Oral Diet Intake Amount: Poor <50% Objective Comments: PMH: hypothyroid, lung CA, PE Labs: Ca+ 6.4 Assessment Assessment: Pt remains at nutritional risk r/t reported unplanned wt loss. Pt started on chemo, will start on radiation next week. Pts diet advanced to regular. Pt has a variable PO intake, he is consuming around 50-100% for most meals tolerating fair. RD will continue to assess pts nutritional needs a PO supplement. Continue to monitor PO intake. Labs reviewed, dietitian following. Recommendations: 1. RD will continue to assess pts nutritional needs a PO supplement 2. Continue to monitor PO intake 3. Dietitian following Dietitian to Monitor: Lab values, Intake & Output, Diet tolerance, Weight change , PO Intake, Medical course
--- NOTE | 2018-07-07 16:04 | P.PNIM ---
Subjective Interval history: Pt still on 6L of supplemental O2 Pt had 1000ml drained from PleurX cath today without improvement in O2 sats Anxious for discharge and upset he is not leaving today Physical Exam Vital signs: Last Vital Signs Temp 97.8 F 07/07/18 12:45 Pulse 97 H 07/07/18 15:41 Resp 18 07/07/18 15:41 BP 116/67 07/07/18 12:45 Pulse Ox 92 L 07/07/18 15:41 Narrative: heart reg lung. improved air entry right chest pleur x catheter/tubing. abd s/nt ext no edema Results Labs CBC & Chem 7: 07/07/18 03:50 07/07/18 03:50 Assessment and Plan Assessment (1) COPD (chronic obstructive pulmonary disease): Code(s): J44.9 - Chronic obstructive pulmonary disease, unspecified Status: Acute (2) Recurrent right pleural effusion: Code(s): J90 - Pleural effusion, not elsewhere classified Status: Acute (3) Adenocarcinoma of lung, stage 4: Code(s): C34.90 - Malignant neoplasm of unspecified part of unspecified bronchus or lung Status: Chronic (4) Leukocytosis: Code(s): D72.829 - Elevated white blood cell count, unspecified Status: Acute (5) Normocytic anemia: Code(s): D64.9 - Anemia, unspecified Status: Chronic (6) Hypothyroidism: Code(s): E03.9 - Hypothyroidism, unspecified Status: Acute (7) Elevated INR: Code(s): R79.1 - Abnormal coagulation profile Status: Acute (8) Pulmonary embolus: Code(s): I26.99 - Other pulmonary embolism without acute cor pulmonale Status: Acute (9) Hypoalbuminemia: Code(s): E88.09 - Other disorders of plasma-protein metabolism, not elsewhere classified Status: Acute Plan - Pt is a 57 y/o male with stage IV lung cancer. He was originally diagnosed in 2012, he received carbo, Taxol and Avastin and radiation to the right lung. He was doing well until August 2017, when he developed a large mass in the right anterior forearm, multiple pulmonary masses and axillary lymph nodes. Needle biopsy of the right axilla revealed metastatic poorly differentiated non- small cell lung cancer. He received 5 cycles of carboplatin, Taxol and Avastin. In May 2018, he had a PET scan which revealed recurrent disease. He had left supraclavicular adenopathy, mediastinal and axillary adenopathy and bony metastasis. - Pt was admitted to the hospital for SOB and was found to have large right pleural effusion - Thoracentesis was performed on 06/29/18 by the surveillance sensor officer with removal of 1500 mL. Pt did have reaccumulation of the fluid and hypoxia. - Patient also found to have left lung PE and Right brachial vein DVT. - CTA Chest (06/29/18): 1. Positive for pulmonary embolism, especially on the left side. 2. Metastatic lung disease with multiple bilateral pulmonary nodules and conglomerate masslike consolidation in the right upper lobe measuring up to 5 cm in diameter. Reported history of lung carcinoma. There is AP window, bilateral hilar and subcarinal adenopathy. 3. Moderate right effusion with compressive atelectasis on the right. 4. [id number] in superior vena cava. 5. Compared with PET scan from May 09, 2018 there is progression of metastatic lung disease, adenopathy and right pleural effusion. - Medical Oncology and Radiation Oncology are following. - MRI head (06/30/18) revealed bilateral cerebral and right cerebellar enhancing lesions characteristic of metastatic disease. Largest lesions measuring 2.2 cm and 1.5 cm, additional subcentimeter lesions noted. No evidence of acute infarct or hemorrhage. No significant mass-effect or shift of midline structures. - 2D echo (06/30): - Normal left ventricular size. Wall thickness is normal. The left ventricular systolic function is normal with an estimated ejection fraction in the range of 55-60%. - Possible diastolic collapse of the right atrium in systole suggesting possible tamponade. - Trace mitral valve regurgitation. - The estimated pulmonary arterial pressure is 45 mmHg. - There is a small pericardial effusion present. The possibility of hemodynamic compromise cannot be excluded on the basis of the available images - Chemotherapy was started on 07/05 with carbo, pemetrexed. - Pt was started on therapeutic Lovenox at 70 mg twice daily. - Pending radiation simulation. - Pt has had increased oxygen requirements and for recurrent malignant effusion , so had PleurX drain placement on 07/04. - Pt currently on 6L supplemental O2 via NC - Cont. on Solu-Medrol/nebs/abx per pulmonary. Solu-Medrol was tapered to 40mg IV BID on 07/06 and Pulmonary changed to Prednisone 20mg daily on 07/07 - Cont. Mucomyst. - IS - Cont. anxiolytic PRN - DANIELITO - OOB with PT - Pt is eager for dc soon after chemo but need to get o2 requirement down. Progress Note: Quality VTE Deep Vein Thrombosis/Pulmonary Embolism Present on Admission: Yes _ (1) Adenocarcinoma of lung, stage 4 Qualifiers: Laterality: unspecified laterality Qualified Code(s): C34.90 - Malignant neoplasm of unspecified part of unspecified bronchus or lung (2) Hypothyroidism Qualifiers: Hypothyroidism type: unspecified Qualified Code(s): E03.9 - Hypothyroidism, unspecified (3) Leukocytosis Qualifiers: Leukocytosis type: unspecified Qualified Code(s): D72.829 - Elevated white blood cell count, unspecified (4) COPD (chronic obstructive pulmonary disease) Qualifiers: COPD type: Chronic bronchitis type: Emphysema type: (5) Pulmonary embolus Qualifiers: Acute cor pulmonale presence: without acute cor pulmonale Chronicity: acute Pulmonary embolism type: other Qualified Code(s): I26.99 - Other pulmonary embolism without acute cor pulmonale
--- NOTE | 2018-07-07 17:46 | P.PNONC ---
Subjective Interval history: Resting comfortably in bed. Looking forward to going home. Objective Vital Signs/Intake & Output: Vital Signs 07/06/18 19:38 07/06/18 21:35 07/06/18 21:49 Temperature 97.9 F Pulse Rate 100 H 93 H Respiratory Rate 18 18 Blood Pressure 123/75 Pulse Oximetry 95 94 L 97 07/06/18 23:19 07/06/18 23:37 07/07/18 01:22 Temperature 98.3 F Pulse Rate 91 H 104 H Respiratory Rate 16 18 18 Blood Pressure 120/70 Pulse Oximetry 91 L 93 L 07/07/18 03:39 07/07/18 04:00 07/07/18 04:09 Temperature 98.2 F Pulse Rate 95 H 81 Respiratory Rate 18 17 Blood Pressure 112/78 Pulse Oximetry 93 L 91 L 07/07/18 07:59 07/07/18 08:46 07/07/18 11:25 Temperature 97.6 F Pulse Rate 84 107 H 93 H Respiratory Rate 18 16 18 Blood Pressure 119/68 Pulse Oximetry 95 91 L 07/07/18 11:26 07/07/18 12:45 07/07/18 15:41 Temperature 97.8 F Pulse Rate 105 H 97 H Respiratory Rate 16 18 Blood Pressure 116/67 Pulse Oximetry 94 L 91 L 92 L Intake & Output 07/06/18 07/07/18 07/07/18 18:59 06:59 18:59 Intake Total 1330 / 1330 240 / 240 Output Total 950 / 950 850 / 850 Balance 380 / 380 -610 / -610 Weight 64.5 kg Intake: IV 250 / 250 Azithromycin Inj 500 MG In NS 250 / 250 Inj 250 ML @ 250 mls/hr IV.SIG Q24H [facility] Rx#:[id number] Oral 1080 / 1080 240 / 240 Output: Urine 950 / 950 850 / 850 Other: Date of Last Bowel Movement 07/06/18 07/06/18 Result Diagrams: 07/07/18 03:50 07/07/18 03:50 Laboratory Results: Laboratory Results - last 24 hr 07/07/18 07/07/18 03:50 03:50 WBC 14.9 H RBC 3.01 L Hgb 9.1 L Hct 27.7 L MCV 92.2 MCH 30.3 MCHC 32.9 RDW 14.3 Plt Count 248 MPV 6.3 L Neut % (Auto) 93.5 H Lymph % (Auto) 4.2 L [place] % (Auto) 2.2 Eos % (Auto) 0.0 Baso % (Auto) 0.1 Neut # (Auto) 13.9 H Lymph # (Auto) 0.6 L [place] # (Auto) 0.3 Eos # (Auto) 0.0 Baso # (Auto) 0.0 WBC Differential . Differential Comment Auto diff final Sodium 144 Potassium 3.7 Chloride 110 H Carbon Dioxide 30.5 Anion Gap 4 L BUN 22 H Creatinine 0.45 L Estimated GFR Greater than 89 Random Glucose 102 Calcium 6.4 L* D Calcium Adj for Albumin 8.1 L Total Bilirubin 0.3 AST 27 ALT 44 Alkaline Phosphatase 66 Total Protein 3.9 L D Albumin 1.4 L Culture Results: Microbiology 06/30/18 00:40 Fungal Smear - Final Abscess - Lung No fungal elements seen Fungal Culture - Preliminary No growth in 1 week 06/30/18 00:40 Acid Fast Bacilli Smear - Final Abscess - Lung No acid fast bacilli seen Mycobacterial Culture - Preliminary No growth in 1 week 06/30/18 01:25 Aerobic Blood Culture - Final Blood - Peripheral No growth in 5 days Anaerobic Blood Culture - Final No growth in 5 days 06/30/18 01:20 Aerobic Blood Culture - Final Blood - Peripheral No growth in 5 days Anaerobic Blood Culture - Final No growth in 5 days Medications: Active Medications Generic Name Dose Route Start Last Admin Trade Name Freq PRN Reason Stop Dose Admin Acetylcysteine 2 ml 07/03/18 12:00 07/07/18 15:41 Mucomyst 20% Neb NEB 2 ml Q4HR NEB ANIKET Administration Albuterol 2.5 mg 06/29/18 23:43 07/04/18 07:29 Albuterol Neb (Prn) NEB 2.5 mg Q2HR NEB PRN Administration SHORTNESS OF BREATH/WHEEZING Albuterol 1 ampul 07/04/18 12:00 07/07/18 15:41 Duoneb Neb (Aniket) NEB 1 ampul Q4HR NEB ANIKET Administration Enoxaparin Sodium 70 mg 07/05/18 09:45 07/07/18 08:46 Lovenox Inj SQ 70 mg Q12HR ANIKET Administration Folic Acid 1 mg 06/30/18 09:00 07/07/18 08:46 Folic Acid PO 1 mg DAILY ANIKET Administration Levothyroxine Sodium 25 mcg 06/30/18 06:00 07/07/18 06:07 Synthroid PO 25 mcg DAILY@0600 ANIKET Administration Methylprednisolone Sodium Succinate 40 mg 07/06/18 21:00 07/07/18 08:46 Solumedrol Inj IV.PUSH 07/09/18 23:59 40 mg Q12HR ANIKET Administration Morphine Sulfate 2 mg 06/29/18 23:43 06/30/18 21:23 Morphine Inj IV.PUSH 2 mg Q2H PRN Administration PAIN SCALE 6 TO 10 Pantoprazole Sodium 40 mg 07/02/18 09:00 07/07/18 12:55 Protonix PO 40 mg DAILY ANIKET Administration Senna/Docusate Sodium 1 tab 06/30/18 09:00 07/07/18 08:46 Janette-Colace PO 1 tab BID ANIKET Administration Sodium Chloride 2 ml 06/30/18 09:00 07/07/18 08:46 Ns Flush IV.FLUSH 2 ml BID ANIKET Administration Temazepam 15 mg 07/02/18 21:00 07/06/18 21:41 Restoril PO 15 mg HS PRN Administration INSOMNIA Objective Remarks: GENERAL: Well-nourished, well-developed patient. SKIN: Warm and dry. HEAD: Normocephalic. EYES: No scleral icterus. No injection or drainage. RESPIRATORY: Nasal cannula in place, 6 liters oxygen No accessory muscle use. GASTROINTESTINAL: Abdomen soft, non-tender, nondistended. EXTREMITIES: No cyanosis, or edema. MUSCULOSKELETAL: Adequate muscle tone. NEUROLOGICAL: No obvious focal deficit. Awake, alert, and oriented x3. PSYCHIATRIC: Appropriate mood and affect; insight and judgment normal. Assessment/Plan - Plan 1. Metastatic poorly differentiated non-small cell lung cancer, lung adenocarcinoma: with progression on carboplatin/paclitaxel and pembrolizumab. Carboplatin, pemetrexed given on 07/05/2018. 2. Pulmonary embolism and BLE & RUE DVTs: continue lovenox injection. 3. Respiratory. Pulmonary team following weaning oxygen and steroids.
--- NOTE | 2018-07-07 17:58 | P.PN ---
Subjective Interval history: On 6 L O2 today. No chest pain . wants to go home. On IV steroids and breathing easier. Physical Exam Vital signs: Vital Signs 07/06/18 19:38 07/06/18 21:35 07/06/18 21:49 Temperature 97.9 F Pulse Rate 100 H 93 H Respiratory Rate 18 18 Blood Pressure 123/75 Pulse Oximetry 95 94 L 97 07/06/18 23:19 07/06/18 23:37 07/07/18 01:22 Temperature 98.3 F Pulse Rate 91 H 104 H Respiratory Rate 16 18 18 Blood Pressure 120/70 Pulse Oximetry 91 L 93 L 07/07/18 03:39 07/07/18 04:00 07/07/18 04:09 Temperature 98.2 F Pulse Rate 95 H 81 Respiratory Rate 18 17 Blood Pressure 112/78 Pulse Oximetry 93 L 91 L 07/07/18 07:59 07/07/18 08:46 07/07/18 11:25 Temperature 97.6 F Pulse Rate 84 107 H 93 H Respiratory Rate 18 16 18 Blood Pressure 119/68 Pulse Oximetry 95 91 L 07/07/18 11:26 07/07/18 12:45 07/07/18 15:41 Temperature 97.8 F Pulse Rate 105 H 97 H Respiratory Rate 16 18 Blood Pressure 116/67 Pulse Oximetry 94 L 91 L 92 L Intake & Output 07/06/18 07/07/18 07/07/18 18:59 06:59 18:59 Intake Total 1330 / 1330 240 / 240 Output Total 950 / 950 850 / 850 Balance 380 / 380 -610 / -610 Weight 64.5 kg Intake: IV 250 / 250 Azithromycin Inj 500 MG In NS 250 / 250 Inj 250 ML @ 250 mls/hr IV.SIG Q24H [facility] Rx#:[id number] Oral 1080 / 1080 240 / 240 Output: Urine 950 / 950 850 / 850 Other: Date of Last Bowel Movement 07/06/18 07/06/18 GENERAL: Mid aged W/m no distress SKIN: Warm and dry. HEAD: Atraumatic. Normocephalic. EYES: Pupils equal and round. No scleral icterus. No injection or drainage. ENT: No nasal bleeding or discharge. Mucous membranes pink and moist. NECK: Trachea midline. No JVD. CARDIOVASCULAR: Regular rate and rhythm. RESPIRATORY: No accessory muscle use. Breath sounds decreased on right. GASTROINTESTINAL: Abdomen soft, non-tender, nondistended. Hepatic and splenic margins not palpable. MUSCULOSKELETAL: Extremities without clubbing, cyanosis, or edema. No obvious deformities. NEUROLOGICAL: Awake and alert. No obvious cranial nerve deficits. Motor grossly within normal limits. Normal speech. PSYCHIATRIC: Appropriate mood and affect; insight and judgment normal. Results - Labs CBC & Chem 7: 07/07/18 03:50 07/07/18 03:50 Laboratory Results - last 24 hr 07/07/18 07/07/18 03:50 03:50 WBC 14.9 H RBC 3.01 L Hgb 9.1 L Hct 27.7 L MCV 92.2 MCH 30.3 MCHC 32.9 RDW 14.3 Plt Count 248 MPV 6.3 L Neut % (Auto) 93.5 H Lymph % (Auto) 4.2 L [place] % (Auto) 2.2 Eos % (Auto) 0.0 Baso % (Auto) 0.1 Neut # (Auto) 13.9 H Lymph # (Auto) 0.6 L [place] # (Auto) 0.3 Eos # (Auto) 0.0 Baso # (Auto) 0.0 WBC Differential . Differential Comment Auto diff final Sodium 144 Potassium 3.7 Chloride 110 H Carbon Dioxide 30.5 Anion Gap 4 L BUN 22 H Creatinine 0.45 L Estimated GFR Greater than 89 Random Glucose 102 Calcium 6.4 L* D Calcium Adj for Albumin 8.1 L Total Bilirubin 0.3 AST 27 ALT 44 Alkaline Phosphatase 66 Total Protein 3.9 L D Albumin 1.4 L Microbiology 06/30/18 00:40 Abscess - Lung Fungal Smear - Final No fungal elements seen 06/30/18 00:40 Abscess - Lung Fungal Culture - Preliminary No growth in 1 week 06/30/18 00:40 Abscess - Lung Acid Fast Bacilli Smear - Final No acid fast bacilli seen 06/30/18 00:40 Abscess - Lung Mycobacterial Culture - Preliminary No growth in 1 week Assessment and Plan - Assessment (1) COPD (chronic obstructive pulmonary disease) Code(s): J44.9 - Chronic obstructive pulmonary disease, unspecified Status: Acute (2) Recurrent right pleural effusion Code(s): J90 - Pleural effusion, not elsewhere classified Status: Acute (3) Adenocarcinoma of lung, stage 4 Code(s): C34.90 - Malignant neoplasm of unspecified part of unspecified bronchus or lung Status: Chronic (4) Leukocytosis Code(s): D72.829 - Elevated white blood cell count, unspecified Status: Acute (5) Normocytic anemia Code(s): D64.9 - Anemia, unspecified Status: Chronic (6) Hypothyroidism Code(s): E03.9 - Hypothyroidism, unspecified Status: Acute (7) Elevated INR Code(s): R79.1 - Abnormal coagulation profile Status: Acute (8) Pulmonary embolus Code(s): I26.99 - Other pulmonary embolism without acute cor pulmonale Status : Acute (9) Hypoalbuminemia Code(s): E88.09 - Other disorders of plasma-protein metabolism, not elsewhere classified Status: Acute - Plan 1. Will drain pleural catheter drained every 3rd day 2. O2 Wean to N/C 4 L 3. Duonebs qid. with nebulizer 4. D/C Solumedrol 5. Continue Lovenox 70 mg BID. 6. Add Prednisone 20 mg daily x 5 days 7. Arrange home o2 and Home if sat >90 on 4 L 8. Get Chest Xray in am (3) Adenocarcinoma of lung, stage 4 Qualifiers: Laterality: unspecified laterality Qualified Code(s): C34.90 - Malignant neoplasm of unspecified part of unspecified bronchus or lung (4) Leukocytosis Qualifiers: Leukocytosis type: unspecified Qualified Code(s): D72.829 - Elevated white blood cell count, unspecified (6) Hypothyroidism Qualifiers: Hypothyroidism type: unspecified Qualified Code(s): E03.9 - Hypothyroidism, unspecified (8) Pulmonary embolus Qualifiers: Pulmonary embolism type: other Chronicity: acute Acute cor pulmonale presence: without acute cor pulmonale Qualified Code(s): I26.99 - Other pulmonary embolism without acute cor pulmonale
[2018-07-07] MEDS: Temazepam 15 MG Capsule PO PRN (22:11)
--- NOTE | 2018-07-08 05:21 | XR ---
EXAM DATE: 07/08/2018 5:11 AM EST AGE/SEX: 57 years / Male INDICATIONS: Shortness of breath, possible pneumothorax. CLINICAL DATA: This is the patient's subsequent encounter. Patient reports that signs and symptoms h ave been present for 1 week and indicates a pain score of 0/10. MEDICAL/SURGICAL HISTORY: Hypothyroidism. Carcinoma, lung. PE. . Port-A-Cath placement. Peric ardiocentesis. COMPARISON: [facility] [place] CHEST 2V AP&LAT, 07/03/2018. . FINDINGS: Portable AP view of the chest demonstrates a normal-sized cardiac silhouette. Right chest wall Infuse -a-Port remains present. There is patchy airspace consolidation bilaterally and reticular nodular air space opacity bilaterally. However, these findings have improved since the prior study. No pleural ef fusion or pneumothorax is identified. The bones demonstrate no acute abnormality. CONCLUSION: Improved bilateral airspace opacity. There is residual patchy areas of airspace consolidation and ret icular nodular opacities. Electronically signed by: Nicolas Downing MD 07/08/2018 5:19 AM EST
[2018-07-08] MEDS: Folic Acid 1 MG Tablet PO SCH (07:59)
[2018-07-08] MEDS: Senna/Docusate Sodium 8.6/50 MG Tablet PO SCH ×2 (07:59→20:17)
[2018-07-08] MEDS: Enoxaparin Inj 80 MG/0.8 ML Syringe SQ SCH ×2 (07:59→20:18)
[2018-07-08] MEDS ORDERED: predniSONE 20 MG Tablet PO SCH (09:00)
--- NOTE | 2018-07-08 10:22 | P.PNONC ---
Subjective Interval history: T-max 99.9 this morning Patient anxious to go home Reports his shortness of breath is improved however he remains on 5 L nasal cannula No other acute complaints Objective Vital Signs/Intake & Output: Vital Signs 07/07/18 11:25 07/07/18 11:26 07/07/18 12:45 Temperature 97.8 F Pulse Rate 93 H 105 H Respiratory Rate 18 16 Blood Pressure 116/67 Pulse Oximetry 94 L 91 L 07/07/18 15:41 07/07/18 16:49 07/07/18 20:00 Temperature 97.7 F 98.2 F Pulse Rate 97 H 94 H 91 H Respiratory Rate 18 16 18 Blood Pressure 126/93 H 124/78 Pulse Oximetry 92 L 93 L 93 L 07/07/18 20:12 07/07/18 20:13 07/07/18 23:46 Temperature Pulse Rate 86 87 Respiratory Rate 16 14 Blood Pressure Pulse Oximetry 97 07/08/18 00:00 07/08/18 03:50 07/08/18 04:00 Temperature 97.8 F 99.9 F H Pulse Rate 95 H 87 95 H Respiratory Rate 18 16 18 Blood Pressure 138/71 119/71 Pulse Oximetry 91 L 91 L 07/08/18 07:25 Temperature Pulse Rate 108 H Respiratory Rate 16 Blood Pressure Pulse Oximetry 97 Intake & Output 07/07/18 07/08/18 07/08/18 18:59 06:59 18:59 Intake Total 120 / 120 240 / 240 Output Total 1575 / 1575 910 / 910 Balance -1455 / -1455 -670 / -670 Weight 136 lb 10.986 oz Intake: Oral 120 / 120 240 / 240 Output: Urine 575 / 575 910 / 910 Wound Drainage 1000 / 1000 Right Lower Anterior Chest 1000 / 1000 Other: Date of Last Bowel Movement 07/06/18 Result Diagrams: 07/07/18 03:50 07/07/18 03:50 Culture Results: Microbiology 06/30/18 00:40 Fungal Smear - Final Abscess - Lung No fungal elements seen Fungal Culture - Preliminary No growth in 1 week 06/30/18 00:40 Acid Fast Bacilli Smear - Final Abscess - Lung No acid fast bacilli seen Mycobacterial Culture - Preliminary No growth in 1 week 06/30/18 01:25 Aerobic Blood Culture - Final Blood - Peripheral No growth in 5 days Anaerobic Blood Culture - Final No growth in 5 days 06/30/18 01:20 Aerobic Blood Culture - Final Blood - Peripheral No growth in 5 days Anaerobic Blood Culture - Final No growth in 5 days Imaging Studies: Impressions Chest X-Ray 07/08/18 00:00 CONCLUSION: Improved bilateral airspace opacity. There is residual patchy areas of airspace consolidation and reticular nodular opacities. Medications: Active Medications Generic Name Dose Route Start Last Admin Trade Name Freq PRN Reason Stop Dose Admin Acetylcysteine 2 ml 07/03/18 12:00 07/08/18 10:05 Mucomyst 20% Neb NEB Not Given Q4HR NEB ANIKET Albuterol 2.5 mg 06/29/18 23:43 07/04/18 07:29 Albuterol Neb (Prn) NEB 2.5 mg Q2HR NEB PRN Administration SHORTNESS OF BREATH/WHEEZING Albuterol 1 ampul 07/04/18 12:00 07/08/18 07:25 Duoneb Neb (Aniket) NEB 1 ampul Q4HR NEB ANIKET Administration Enoxaparin Sodium 70 mg 07/05/18 09:45 07/08/18 07:59 Lovenox Inj SQ 70 mg Q12HR ANIKET Administration Folic Acid 1 mg 06/30/18 09:00 07/08/18 07:59 Folic Acid PO 1 mg DAILY ANIKET Administration Levothyroxine Sodium 25 mcg 06/30/18 06:00 07/08/18 06:20 Synthroid PO 25 mcg DAILY@0600 ANIKET Administration Morphine Sulfate 2 mg 06/29/18 23:43 06/30/18 21:23 Morphine Inj IV.PUSH 2 mg Q2H PRN Administration PAIN SCALE 6 TO 10 Pantoprazole Sodium 40 mg 07/02/18 09:00 07/08/18 07:59 Protonix PO 40 mg DAILY ANIKET Administration Prednisone 20 mg 07/08/18 09:00 07/08/18 07:59 Deltasone PO 07/11/18 23:59 20 mg DAILY ANIKET Administration Senna/Docusate Sodium 1 tab 06/30/18 09:00 07/08/18 07:59 Janette-Colace PO 1 tab BID ANIKET Administration Sodium Chloride 2 ml 06/30/18 09:00 07/08/18 07:59 Ns Flush IV.FLUSH 2 ml BID ANIKET Administration Temazepam 15 mg 07/02/18 21:00 07/07/18 22:11 Restoril PO 15 mg HS PRN Administration INSOMNIA Objective Remarks: GENERAL: Well-nourished, well-developed male patient, in no acute distress. SKIN: Warm and dry. HEAD: Normocephalic. EYES: No scleral icterus. No injection or drainage. NECK: Supple, trachea midline. CARDIOVASCULAR: Regular rate and rhythm without murmurs. RESPIRATORY: Pleurx in place. On 5 L nasal cannula. GASTROINTESTINAL: Abdomen soft, non-tender, nondistended. EXTREMITIES: Bilateral lower extremity edema. Right arm edema. MUSCULOSKELETAL: Adequate muscle tone. NEUROLOGICAL: No obvious focal deficit. Awake, alert, and oriented x3. Assessment/Plan - Plan 57-year-old male with history of metastatic poorly differentiated non-small cell lung cancer. He had progression on carboplatin/paclitaxel and Keytruda. Most recently he has been given carboplatin and Alimta on 07/05/18. 1. Pulmonary embolism and BLE & RUE DVTs: Continue therapeutic Lovenox injections. Monitor CBC as we would expect milla due to recent chemotherapy. 2. Respiratory. Pulmonary team following weaning oxygen and steroids. Continue supportive care. Chest x-ray today shows improvement. - Attending Statement The exam, history, and the medical decision-making described in the above note were completed with the assistance of the mid-level provider. I reviewed and agree with the findings presented. I attest that I had a [id number] encounter with the patient on the same day, and personally performed and documented my assessment and findings in the medical record. Patient is feeling better but he is still on 5 L of oxygen via nasal cannula. He is eager to go home. Continue supportive care and can be discharged home once his oxygen is weaned down.
--- NOTE | 2018-07-08 14:52 | P.PNIM ---
Subjective Interval history: Pt is eager for discharge. Physical Exam Vital signs: Last Vital Signs Temp 99.9 F H 07/08/18 04:00 Pulse 107 H 07/08/18 11:51 Resp 16 07/08/18 11:51 BP 119/71 07/08/18 04:00 Pulse Ox 97 07/08/18 07:25 Narrative: heart reg lung. improved air entry right chest pleur x catheter/tubing. abd s/nt ext no edema Results Labs CBC & Chem 7: 07/09/18 03:43 07/09/18 03:43 Assessment and Plan Plan - Pt is a 57 y/o male with stage IV lung cancer. He was originally diagnosed in 2012, he received carbo, Taxol and Avastin and radiation to the right lung. He was doing well until August 2017, when he developed a large mass in the right anterior forearm, multiple pulmonary masses and axillary lymph nodes. Needle biopsy of the right axilla revealed metastatic poorly differentiated non- small cell lung cancer. He received 5 cycles of carboplatin, Taxol and Avastin. In May 2018, he had a PET scan which revealed recurrent disease. He had left supraclavicular adenopathy, mediastinal and axillary adenopathy and bony metastasis. - Pt was admitted to the hospital for SOB and was found to have large right pleural effusion - Thoracentesis was performed on 06/29/18 by the kiln car repairer with removal of 1500 mL. Pt did have reaccumulation of the fluid and hypoxia. - Patient also found to have left lung PE and Right brachial vein DVT. - CTA Chest (06/29/18): 1. Positive for pulmonary embolism, especially on the left side. 2. Metastatic lung disease with multiple bilateral pulmonary nodules and conglomerate masslike consolidation in the right upper lobe measuring up to 5 cm in diameter. Reported history of lung carcinoma. There is AP window, bilateral hilar and subcarinal adenopathy. 3. Moderate right effusion with compressive atelectasis on the right. 4. Nkebbv-n-Wdqf in superior vena cava. 5. Compared with PET scan from May 09, 2018 there is progression of metastatic lung disease, adenopathy and right pleural effusion. - Medical Oncology and Radiation Oncology are following. - MRI head (06/30/18) revealed bilateral cerebral and right cerebellar enhancing lesions characteristic of metastatic disease. Largest lesions measuring 2.2 cm and 1.5 cm, additional subcentimeter lesions noted. No evidence of acute infarct or hemorrhage. No significant mass-effect or shift of midline structures. - 2D echo (06/30): - Normal left ventricular size. Wall thickness is normal. The left ventricular systolic function is normal with an estimated ejection fraction in the range of 55-60%. - Possible diastolic collapse of the right atrium in systole suggesting possible tamponade. - Trace mitral valve regurgitation. - The estimated pulmonary arterial pressure is 45 mmHg. - There is a small pericardial effusion present. The possibility of hemodynamic compromise cannot be excluded on the basis of the available images - Chemotherapy was started on 07/05 with carbo, pemetrexed. - Pt was started on therapeutic Lovenox at 70 mg twice daily. - Pending radiation simulation. - Pt has had increased oxygen requirements and for recurrent malignant effusion , so had PleurX drain placement on 07/04. - Pt currently on 5L supplemental O2 via NC - solumedrol changed to PO prednisone 30mg BID - Cont. Mucomyst. - IS - Cont. anxiolytic PRN - DANIELITO - OOB with PT - Pt is eager for dc soon after chemo but need to get o2 requirement down. Progress Note: Quality VTE Deep Vein Thrombosis/Pulmonary Embolism Present on Admission: Yes
[2018-07-08] MEDS: predniSONE 10 MG Tablet PO SCH (20:17)
[2018-07-08] MEDS: Temazepam 15 MG Capsule PO PRN (23:48)
[2018-07-09 04:03] LABS: Baso % (Auto) 0.1 % (0.0-2.0); Hematocrit 35.3 % (39.0-51.0); Hemoglobin 11.6 gm/dL (13.0-17.0); Lymph # (Auto) 0.5 th/mm3 (1.0-4.8); Lymph % (Auto) 3.4 % (9.0-44.0); Mean Corpuscular HGB Conc 32.9 % (32.0-36.0); Mean Corpuscular Hemoglobin 29.7 pg (27.0-34.0); Mean Corpuscular Volume 90.5 fL (80.0-100.0); Mean Platelet Volume 6.2 fL (7.0-11.0); Mono # (Auto) 0.1 th/mm3 (0.0-0.9); Neut # (Auto) 12.7 th/mm3 (1.8-7.7); Neut % (Auto) 95.5 % (16.0-70.0); Platelet Count 242 th/mm3 (150-450); Red Cell Distribution Width 14.4 % (11.6-17.2); White Blood Count 13.3 th/mm3 (4.0-11.0)
[2018-07-09 04:30] LABS: Alanine Aminotransferase 45 U/L (12-78); Albumin 1.8 g/dL (3.4-5.0); Alkaline Phosphatase 77 U/L (45-117); Anion Gap 4 meq/L (5-15); Aspartate Aminotransferase 32 U/L (15-37); Blood Urea Nitrogen 22 mg/dL (7-18); Calcium 7.7 mg/dL (8.5-10.1); Carbon Dioxide 34.2 meq/L (21.0-32.0); Chloride 100 meq/L (98-107); Glomerular Filtration Rate Greater Than 89 mL/min (>89); Glucose,Random 127 mg/dL (74-106); Potassium 4.4 meq/L (3.5-5.1); Sodium 138 meq/L (136-145); Total Protein 5.3 g/dL (6.4-8.2)
[2018-07-09] MEDS: predniSONE 10 MG Tablet PO SCH ×2 (08:58→20:18)
[2018-07-09] MEDS: Folic Acid 1 MG Tablet PO SCH (08:58)
[2018-07-09] MEDS: Senna/Docusate Sodium 8.6/50 MG Tablet PO SCH ×2 (08:59→20:20)
[2018-07-09] MEDS: Enoxaparin Inj 80 MG/0.8 ML Syringe SQ SCH ×2 (08:59→20:19)
--- NOTE | 2018-07-09 09:02 | P.PNONC ---
Subjective Interval history: Afebrile O2 down to 4 L/min He is reportedly having a meeting with his primary team to discuss discharge at 11 AM Desperately wants to go home No other acute complaints Objective Vital Signs/Intake & Output: Vital Signs 07/08/18 11:51 07/08/18 12:00 07/08/18 15:45 Temperature Pulse Rate 107 H 111 H 102 H Respiratory Rate 16 20 16 Blood Pressure 144/73 H Pulse Oximetry 93 L 07/08/18 16:00 07/08/18 19:49 07/08/18 20:00 Temperature 97.2 F L Pulse Rate 106 H 108 H 114 H Respiratory Rate 20 18 20 Blood Pressure 128/72 104/60 Pulse Oximetry 93 L 90 L 91 L 07/08/18 23:46 07/08/18 23:56 07/08/18 23:57 Temperature 98.0 F Pulse Rate 110 H 104 H Respiratory Rate 20 18 Blood Pressure 123/71 Pulse Oximetry 91 L 94 L 07/09/18 00:00 07/09/18 03:33 07/09/18 04:00 Temperature 98.1 F Pulse Rate 95 H Respiratory Rate 16 Blood Pressure 107/59 L Pulse Oximetry 94 L 93 L 94 L 07/09/18 04:18 07/09/18 07:29 07/09/18 08:00 Temperature Pulse Rate 88 94 H Respiratory Rate 16 22 Blood Pressure 103/67 Pulse Oximetry 94 L 94 L Intake & Output 07/08/18 07/09/18 07/09/18 18:59 06:59 18:59 Intake Total 1270 / 1270 480 / 480 Output Total 1275 / 1275 Balance -5 / -5 480 / 480 Weight 136 lb 10.986 oz Intake: Oral 1270 / 1270 480 / 480 Output: Urine 1275 / 1275 Other: Post Void Residual 810 Date of Last Bowel Movement 07/06/18 07/08/18 # Bowel Movements 0 Result Diagrams: 07/09/18 03:43 07/09/18 03:43 Laboratory Results: Laboratory Results - last 24 hr 07/09/18 07/09/18 03:43 03:43 WBC 13.3 H RBC 3.90 L Hgb 11.6 L D Hct 35.3 L MCV 90.5 MCH 29.7 MCHC 32.9 RDW 14.4 Plt Count 242 MPV 6.2 L Neut % (Auto) 95.5 H Lymph % (Auto) 3.4 L [place] % (Auto) 1.0 Eos % (Auto) 0.0 Baso % (Auto) 0.1 Neut # (Auto) 12.7 H Lymph # (Auto) 0.5 L [place] # (Auto) 0.1 Eos # (Auto) 0.0 Baso # (Auto) 0.0 WBC Differential . Differential Comment Auto diff final Sodium 138 Potassium 4.4 Chloride 100 D Carbon Dioxide 34.2 H Anion Gap 4 L BUN 22 H Creatinine 0.62 Estimated GFR Greater than 89 Random Glucose 127 H Calcium 7.7 L D Total Bilirubin 0.6 AST 32 ALT 45 Alkaline Phosphatase 77 Total Protein 5.3 L D Albumin 1.8 L Culture Results: Microbiology 06/30/18 00:40 Fungal Smear - Final Abscess - Lung No fungal elements seen Fungal Culture - Preliminary No growth in 1 week 06/30/18 00:40 Acid Fast Bacilli Smear - Final Abscess - Lung No acid fast bacilli seen Mycobacterial Culture - Preliminary No growth in 1 week Medications: Active Medications Generic Name Dose Route Start Last Admin Trade Name Freq PRN Reason Stop Dose Admin Acetylcysteine 2 ml 07/03/18 12:00 07/09/18 07:28 Mucomyst 20% Neb NEB Not Given Q4HR NEB GAVIOTA Albuterol 2.5 mg 06/29/18 23:43 07/09/18 04:12 Albuterol Neb (Prn) NEB 2.5 mg Q2HR NEB PRN Administration SHORTNESS OF BREATH/WHEEZING Enoxaparin Sodium 70 mg 07/05/18 09:45 07/08/18 20:18 Lovenox Inj SQ 70 mg Q12HR GAVIOTA Administration Folic Acid 1 mg 06/30/18 09:00 07/08/18 07:59 Folic Acid PO 1 mg DAILY GAVIOTA Administration Levothyroxine Sodium 25 mcg 06/30/18 06:00 07/09/18 06:10 Synthroid PO 25 mcg DAILY@0600 GAVIOTA Administration Morphine Sulfate 2 mg 06/29/18 23:43 06/30/18 21:23 Morphine Inj IV.PUSH 2 mg Q2H PRN Administration PAIN SCALE 6 TO 10 Pantoprazole Sodium 40 mg 07/02/18 09:00 07/08/18 07:59 Protonix PO 40 mg DAILY GAVIOTA Administration Prednisone 30 mg 07/08/18 21:00 07/08/18 20:17 Deltasone PO 07/11/18 23:59 30 mg BID GAVIOTA Administration Senna/Docusate Sodium 1 tab 06/30/18 09:00 07/08/18 20:17 Janette-Colace PO 1 tab BID GAVIOTA Administration Sodium Chloride 2 ml 06/30/18 09:00 07/08/18 20:19 Ns Flush IV.FLUSH 2 ml BID GAVIOTA Administration Temazepam 15 mg 07/02/18 21:00 07/08/18 23:48 Restoril PO 15 mg HS PRN Administration INSOMNIA Objective Remarks: GENERAL: Well-nourished, well-developed male patient, in no acute distress. SKIN: Warm and dry. HEAD: Normocephalic. EYES: No scleral icterus. No injection or drainage. NECK: Supple, trachea midline. CARDIOVASCULAR: Regular rate and rhythm without murmurs. RESPIRATORY: Pleurx in place. On 4 L nasal cannula. Right lower lobe with scattered rales GASTROINTESTINAL: Abdomen soft, non-tender, nondistended. EXTREMITIES: Bilateral lower extremity edema. Right arm edema. MUSCULOSKELETAL: Adequate muscle tone. NEUROLOGICAL: No obvious focal deficit. Awake, alert, and oriented x3. Assessment/Plan - Plan 57-year-old male with history of metastatic poorly differentiated non-small cell lung cancer. He had progression on carboplatin/paclitaxel and Keytruda. Most recently he has been given carboplatin and Alimta on 07/05/18. 1. Pulmonary embolism and BLE & RUE DVTs: Continue therapeutic Lovenox injections. Plan to discharge home on this and follow-up with Dr. Cabrera in clinic. 2. Respiratory team to continue to wean O2 as tolerated. - Attending Statement The exam, history, and the medical decision-making described in the above note were completed with the assistance of the mid-level provider. I reviewed and agree with the findings presented. I attest that I had a qahe-[id number]-[id number] encounter with the patient on the same day, and personally performed and documented my assessment and findings in the medical record. Patient is feeling better. He is still on 4L of oxygen. He denies any chest pain. He will continue Lovenox. He is hoping he could be discharged tomorrow if his oxygen could be weaned down.
--- NOTE | 2018-07-09 10:55 | P.PNIM ---
Subjective Interval history: Pt is currently down to 4L of supplemental O2 with stable O2 sats currently Pt is very anxious about discharge but will need to get a walk test performed and home O2 arranged He reports that he is eating and drinking normally Moving his bowels without difficulty per the pt Physical Exam Vital signs: Last Vital Signs Temp 98.1 F 07/09/18 03:33 Pulse 94 H 07/09/18 08:00 Resp 22 07/09/18 08:00 BP 103/67 07/09/18 08:00 Pulse Ox 94 L 07/09/18 08:00 Narrative: General: NAD, Awake and alert Cardiac: Reg Chest: Improved air entry, right chest PleurX catheter/tubing. Abd: +BS, soft ND/NT Ext: no edema Results Labs CBC & Chem 7: 07/09/18 03:43 07/09/18 03:43 Imaging Chest X-Ray 06/29/18 21:52 CONCLUSION: Worsening volume loss and patchy consolidation of the right lung including a somewhat masslike area in the region of the right hilum. Right hemidiaphragm is now elevated. CT pulmonary angiogram is pending. Chest CTA 06/29/18 21:53 CONCLUSION: 1. Positive for pulmonary embolism, especially on the left side. 2. Metastatic lung disease with multiple bilateral pulmonary nodules and conglomerate masslike consolidation in the right upper lobe measuring up to 5 cm in diameter. Reported history of lung carcinoma. There is AP window, bilateral hilar and subcarinal adenopathy. 3. Moderate right effusion with compressive atelectasis on the right. 4. Xvxhed-u-Kbbv in superior vena cava. 5. Compared with PET scan from May 09, 2018 there is progression of metastatic lung disease, adenopathy and right pleural effusion. Chest X-Ray 06/30/18 00:00 CONCLUSION: Right thoracentesis with near complete resolution of right pleural effusion and improved right-sided airspace disease. Ybafkk-[id number]-Bocq tip in superior vena cava. Head MRI 06/30/18 00:00 CONCLUSION: 1. Bilateral cerebral and right cerebellar enhancing lesions characteristic of metastatic disease. Largest lesions and measurements are given above. 2. No evidence of acute infarct or hemorrhage. 3. No significant mass effect or shift of midline structures. Venous Doppler Study 06/30/18 00:00 CONCLUSION: 1. Bilateral DVT 2. Nonocclusive thrombus is identified in both superficial femoral veins and right popliteal vein. 3. Occlusive thrombus is identified in the left popliteal vein and both proximal calves. Chest X-Ray 06/30/18 08:00 CONCLUSION: Slight worsening in aeration Chest X-Ray 07/03/18 00:00 CONCLUSION: Increasing right-sided pleural effusion and diffuse bilateral infiltrate worsened when compared to previous of 06/30/2018. Venous Doppler Study 07/03/18 00:00 CONCLUSION: 1. Right brachial vein DVT. 2. Soft tissue masses which may reflect jay enlargement or metastatic disease. Catheter Placement X-Ray 07/04/18 00:00 CONCLUSION: 1. Uncomplicated chest tube placement as above. Chest X-Ray 07/08/18 00:00 CONCLUSION: Improved bilateral airspace opacity. There is residual patchy areas of airspace consolidation and reticular nodular opacities. Assessment and Plan Plan - Pt is a 57 y/o male with stage IV lung cancer. He was originally diagnosed in 2012, he received carbo, Taxol and Avastin and radiation to the right lung. He was doing well until August 2017, when he developed a large mass in the right anterior forearm, multiple pulmonary masses and axillary lymph nodes. Needle biopsy of the right axilla revealed metastatic poorly differentiated non- small cell lung cancer. He received 5 cycles of carboplatin, Taxol and Avastin. In May 2018, he had a PET scan which revealed recurrent disease. He had left supraclavicular adenopathy, mediastinal and axillary adenopathy and bony metastasis. - Pt was admitted to the hospital for SOB and was found to have large right pleural effusion - Thoracentesis was performed on 06/29/18 by the k 12 principal with removal of 1500 mL. Pt did have reaccumulation of the fluid and hypoxia. - Patient also found to have left lung PE and Right brachial vein DVT. - CTA Chest (06/29/18): 1. Positive for pulmonary embolism, especially on the left side. 2. Metastatic lung disease with multiple bilateral pulmonary nodules and conglomerate masslike consolidation in the right upper lobe measuring up to 5 cm in diameter. Reported history of lung carcinoma. There is AP window, bilateral hilar and subcarinal adenopathy. 3. Moderate right effusion with compressive atelectasis on the right. 4. Arugqu-b-Docc in superior vena cava. 5. Compared with PET scan from May 09, 2018 there is progression of metastatic lung disease, adenopathy and right pleural effusion. - Medical Oncology and Radiation Oncology are following. - MRI head (06/30/18) revealed bilateral cerebral and right cerebellar enhancing lesions characteristic of metastatic disease. Largest lesions measuring 2.2 cm and 1.5 cm, additional subcentimeter lesions noted. No evidence of acute infarct or hemorrhage. No significant mass-effect or shift of midline structures. - 2D echo (06/30): - Normal left ventricular size. Wall thickness is normal. The left ventricular systolic function is normal with an estimated ejection fraction in the range of 55-60%. - Possible diastolic collapse of the right atrium in systole suggesting possible tamponade. - Trace mitral valve regurgitation. - The estimated pulmonary arterial pressure is 45 mmHg. - There is a small pericardial effusion present. The possibility of hemodynamic compromise cannot be excluded on the basis of the available images - Chemotherapy was started on 07/05 with carbo, pemetrexed. - Pt was started on therapeutic Lovenox at 70 mg twice daily. - Pt is planned for outpt radiation. - Pt has had increased oxygen requirements and for recurrent malignant effusion , so had PleurX drain placement on 07/04. - Pt currently on 4L supplemental O2 via [place] - Solu-Medrol changed to PO prednisone 30mg BID - Cont. Mucomyst. - IS - Resp walk test today and consult CM to arrange home O2 and set up HHC/PT - Cont. anxiolytic PRN - DANIELITO - OOB with PT - Anticipate d/c tomorrow Progress Note: Quality VTE Deep Vein Thrombosis/Pulmonary Embolism Present on Admission: Yes
--- NOTE | 2018-07-09 11:20 | P.DCO ---
Physical Therapy Order: Evaluate and treat, Improve ambulation and Strength and gait training Home Health Nursing Order: Medical education, Signs/symptoms of disease process, Oxygen administration education, Medication education-adverse effect, Wound care and dressing changes and Nursing assessment with vital signs Instructions: Drain pleurex catheter every 3 days (07/10) and then next day (07/13 ) lovenox daily BMP, CBC, mag on 07/12/18 and fax results to pt's Oncologist, Josselin Cabrera Case Management Consult Case Management Consult-Home Health: Yes I have seen patient Luke Ross on 07/09/18. My clinical findings support the need for the requested home health care services because: Limited mobility due to disease progression, Patient has SOB, Medication compliance is questionable, Limited ability to care for self, Need for psychosocial assistance and Impaired cognition/judgement I certify that my clinical findings support that this patient is homebound because: Impaired cognitive ability/safety, Unsteady gait/balance, Unsafe to leave home unassisted, Need for psychosocial assistance and Unable to use public transportation
[2018-07-09] MEDS ORDERED: ALPRAZolam 0.25 MG Tablet PO PRN (13:19)
[2018-07-09] MEDS: Temazepam 15 MG Capsule PO PRN (20:19)
--- NOTE | 2018-07-10 09:00 | P.PNONC ---
Subjective Interval history: Resting comfortably in bed. He is looking forward to going home. Objective Vital Signs/Intake & Output: Vital Signs 07/09/18 12:00 07/09/18 16:00 07/09/18 20:00 Temperature 99.3 F Pulse Rate 94 H 94 H 100 H Respiratory Rate 18 18 18 Blood Pressure 95/52 L 100/58 L 117/75 Pulse Oximetry 94 L 94 L 95 Pulse Oximetry [Resting on Room Air] 88 L Pulse Oximetry [Resting with Oxygen] 94 L 07/09/18 21:10 07/10/18 00:00 07/10/18 04:00 Temperature 99.3 F 97.8 F Pulse Rate 100 H 100 H Respiratory Rate 18 17 Blood Pressure 118/69 116/75 Pulse Oximetry 95 95 94 L Pulse Oximetry [Resting on Room Air] Pulse Oximetry [Resting with Oxygen] Intake & Output 07/09/18 07/10/18 07/10/18 18:59 06:59 18:59 Intake Total 1100 / 1100 240 / 240 Output Total 975 / 975 800 / 800 Balance 125 / 125 -560 / -560 Weight 62.1 kg Intake: Oral 1100 / 1100 240 / 240 Output: Urine 975 / 975 800 / 800 Other: Date of Last Bowel Movement 07/08/18 Result Diagrams: 07/09/18 03:43 07/09/18 03:43 Culture Results: Microbiology 06/30/18 00:40 Fungal Smear - Final Abscess - Lung No fungal elements seen Fungal Culture - Preliminary No growth in 1 week 06/30/18 00:40 Acid Fast Bacilli Smear - Final Abscess - Lung No acid fast bacilli seen Mycobacterial Culture - Preliminary No growth in 1 week Medications: Active Medications Generic Name Dose Route Start Last Admin Trade Name Freq PRN Reason Stop Dose Admin Hydrocodone Bitart/Acetaminophen 1 tab 06/29/18 23:43 07/10/18 02:11 [place] 5/325 PO 1 tab Q4H PRN Administration PAIN SCALE 1 TO 5 Acetylcysteine 2 ml 07/03/18 12:00 07/10/18 07:33 Mucomyst 20% Neb NEB Not Given Q4HR NEB GAVIOTA Albuterol 2.5 mg 06/29/18 23:43 07/09/18 04:12 Albuterol Neb (Prn) NEB 2.5 mg Q2HR NEB PRN Administration SHORTNESS OF BREATH/WHEEZING Enoxaparin Sodium 70 mg 07/05/18 09:45 07/09/18 20:19 Lovenox Inj SQ 70 mg Q12HR GAVIOTA Administration Folic Acid 1 mg 06/30/18 09:00 07/09/18 08:58 Folic Acid PO 1 mg DAILY GAVIOTA Administration Levothyroxine Sodium 25 mcg 06/30/18 06:00 07/10/18 05:46 Synthroid PO 25 mcg DAILY@0600 GAVIOTA Administration Morphine Sulfate 2 mg 06/29/18 23:43 06/30/18 21:23 Morphine Inj IV.PUSH 2 mg Q2H PRN Administration PAIN SCALE 6 TO 10 Pantoprazole Sodium 40 mg 07/02/18 09:00 07/09/18 08:59 Protonix PO 40 mg DAILY GAVIOTA Administration Prednisone 30 mg 07/08/18 21:00 07/09/18 20:18 Deltasone PO 07/11/18 23:59 30 mg BID GAVIOTA Administration Senna/Docusate Sodium 1 tab 06/30/18 09:00 07/09/18 20:20 Janette-Colace PO Not Given BID GAVIOTA Sodium Chloride 2 ml 06/30/18 09:00 07/09/18 20:24 Ns Flush IV.FLUSH 2 ml BID GAVIOTA Administration Temazepam 15 mg 07/02/18 21:00 07/09/18 20:19 Restoril PO 15 mg HS PRN Administration INSOMNIA Objective Remarks: GENERAL: Well-nourished, well-developed patient. SKIN: Warm and dry. HEAD: Normocephalic. EYES: No scleral icterus. No injection or drainage. NECK: Supple, trachea midline. No JVD or lymphadenopathy. LYMPHATIC: No adenopathy. CARDIOVASCULAR: Regular rate and rhythm without murmurs. RESPIRATORY: Breath sounds equal bilaterally. No accessory muscle use. Pleurex in place GASTROINTESTINAL: Abdomen soft, non-tender, nondistended. EXTREMITIES: No cyanosis, or edema. MUSCULOSKELETAL: Adequate muscle tone. NEUROLOGICAL: No obvious focal deficit. Awake, alert, and oriented x3. Assessment/Plan - Plan 1. Metastatic lung adenocarcinoma. With progression on carboplatin/paclitaxel/ Avastin and pembrolizumab. Dr. Tim planning for palliative radiation therapy. Overall poor prognosis. 2. VTE: continue on lovenox therapy.
[2018-07-10] MEDS: Enoxaparin Inj 80 MG/0.8 ML Syringe SQ SCH (10:10)
[2018-07-10] MEDS: predniSONE 10 MG Tablet PO SCH (10:11)
[2018-07-10] MEDS: Senna/Docusate Sodium 8.6/50 MG Tablet PO SCH (10:12)
[2018-07-10] MEDS: Folic Acid 1 MG Tablet PO SCH (10:15)
--- NOTE | 2018-07-10 10:55 | P.DS ---
DS: Providers Date of admission: 06/29/18 23:25 Primary care physician: Juan Guerrero MD Consults: 06/30/18 00:43 Consult to Hematology Routine Consulting Provider: Josselin Cabrera Patient known to:: Josselin Cabrera Reason for Consultation: Adenocarcinoma lung stage IV. Admission with large right pleural effusion. Left lower lobe PE. Assist with management. Notified:: Service Spoke with:: nicho Date Notified:: 06/30/18 Time Notified:: 03:07 Ordering Provider: ALEXANDRU 06/30/18 10:29 Consult to Pulmonology Routine Consulting Provider: Collin Garcia Reason for Consultation: resp insuff, stage 4 lung ca Notified:: Service Date Notified:: 06/30/18 Time Notified:: 10:34 Ordering Provider: DELMA 06/30/18 10:30 Consult to Hospitalist Routine Consulting Provider: Gerardo Anders Reason for Consultation: Assume care 07/01/18 Notified:: Service Spoke with:: Heydi Date Notified:: 06/30/18 Time Notified:: 10:33 Ordering Provider: DELMA 07/01/18 13:24 Consult to Radiation Oncology Routine Consulting Provider: Benja Galloway Reason for Consultation: lung ca, brain mets on MRI Notified:: Service Spoke with:: Bettina Date Notified:: 07/01/18 Time Notified:: 13:31 Ordering Provider: SUE 07/03/18 08:32 Consult to Radiation Oncology Routine Consulting Provider: Ashkan Caraballo Reason for Consultation: lung ca, brain mets on mri Notified:: Service Spoke with:: JESSICA Date Notified:: 07/03/18 Time Notified:: 09:44 Comments:: Please notify Rad Onc of this consult, I believe the consult was sent to oncology instead on 07/01/18 Ordering Provider: SHOOTS Brief History from admission: This is a 57-year-old male. Admission 06/29/2018 the past medical history includes stage IV adenocarcinoma of the lung. This was diagnosed in 2012 was admitted with a large malignant pericardial effusion/right pleural effusion pulmonary embolism. He had a pericardiocentesis revealed poorly differentiated adenocarcinoma with malignant cells that were negative for EGFR and ALK. He received carbo, Taxol and Avastin maintenance times radiation of the right lung. He did well until 08/25 when developed seen a large mass in the right anterior forearm. This showed multiple pulmonary masses and axillary lymph nodes. MRI of the brain was negative. Needle biopsy of the right axilla revealed metastatic poorly differentiated non-small lung cancer. EGFR and ALK negative. PDL1 1% He received 5 cycles of carboplatin, Taxol and abstain. In May 2018 patient had a PET scan. These revealed recurrent disease. He had left supraclavicular adenopathy, mediastinal and axillary adenopathy and bony metastases. Today, patient presented to [facility] with shortness of breath. He has noted progressive shortness of breath over the past week. He is noticed regular in the left lower extremity edema. X-ray revealed a large right pleural effusion and 2 nonocclusive left lower lobe pulmonary embolus. Two- point centimeter bilateral hilar soft carinal lymph nodes. Right upper lobes 5 cm mass. Large right pleural effusion. Pulmonary nodules. Thoracentesis was done in the ED which removed 1500 cc. Currently on a nonrebreather satting 100% . Follow-up chest x-ray revealed no signs of pneumothoraces. DS: Summary Metastatic lung cancer Malignant pleural effusion PE/DVT Pt is a 57 y/o male with stage IV lung cancer. He was originally diagnosed in 2012, he received carbo, Taxol and Avastin and radiation to the right lung. He was doing well until August 2017, when he developed a large mass in the right anterior forearm, multiple pulmonary masses and axillary lymph nodes. Needle biopsy of the right axilla revealed metastatic poorly differentiated non-small cell lung cancer. He received 5 cycles of carboplatin, Taxol and Avastin. In May 2018, he had a PET scan which revealed recurrent disease. He had left supraclavicular adenopathy, mediastinal and axillary adenopathy and bony metastasis. Pt was admitted to the hospital for SOB and was found to have large right pleural effusion. Thoracentesis was performed on 06/29/18 by the precision dyer with removal of 1500 mL. Pt did have reaccumulation of the fluid and hypoxia. Patient was also found to have left lung PE and Right brachial vein DVT. Medical Oncology and Radiation Oncology are following. CTA Chest (06/29/18): 1. Positive for pulmonary embolism, especially on the left side. 2. Metastatic lung disease with multiple bilateral pulmonary nodules and conglomerate masslike consolidation in the right upper lobe measuring up to 5 cm in diameter. Reported history of lung carcinoma. There is AP window, bilateral hilar and subcarinal adenopathy. 3. Moderate right effusion with compressive atelectasis on the right. 4. [id number] in superior vena cava. 5. Compared with PET scan from May 09, 2018 there is progression of metastatic lung disease, adenopathy and right pleural effusion. MRI head (06/30/18) revealed bilateral cerebral and right cerebellar enhancing lesions characteristic of metastatic disease. Largest lesions measuring 2.2 cm and 1.5 cm, additional subcentimeter lesions noted. No evidence of acute infarct or hemorrhage. No significant mass-effect or shift of midline structures. - 2D echo (06/30): - Normal left ventricular size. Wall thickness is normal. The left ventricular systolic function is normal with an estimated ejection fraction in the range of 55-60%. - Possible diastolic collapse of the right atrium in systole suggesting possible tamponade. - Trace mitral valve regurgitation. - The estimated pulmonary arterial pressure is 45 mmHg. - There is a small pericardial effusion present. The possibility of hemodynamic compromise cannot be excluded on the basis of the available images Chemotherapy was started on 07/05 with carbo, pemetrexed. Pt was started on therapeutic Lovenox at 70 mg twice daily. He had radiation simulation on and is planned for outpt palliative radiation. Pt has had increased oxygen requirements and recurrent malignant effusion, so had PleurX drain placement on 07/04. Pt currently on 4L supplemental O2 via NC . Solu-Medrol was changed to PO prednisone 30mg BID on 07/08/18 and the pt will continue a prolonged prednisone taper upon discharge of 30mg BID x 7 days --> 20mg BID x 7 days --> 10mg BID x 7 day --> 10mg daily x 7 days, then stop. Pt failed a walk test and we will arrange for home O2 and set up HHC/PT to help with drainage of PleurX catheter every 3 days. We will cont. a small dose of anxiolytic and pain med PRN. Pt will need to followup with Dr. Black next week. He will continue on Lovenox 70mg SQ BID per their orders until they decide to change it to NOAC Pt will need to followup with Radiation Oncology, Dr. Tim, next week as well Pt is to followup with Dr. Marquez in 2 weeks. Time Spent with Patient Total time spent providing and/or coordinating discharge services: Quality: VTE Deep Vein Thrombosis/Pulmonary Embolism Present on Admission: Yes Results Labs on day of discharge: Preliminary micro results at discharge 06/30/18 00:40 Fungal Culture - Preliminary Abscess - Lung No growth in 1 week 06/30/18 00:40 Mycobacterial Culture - Preliminary Abscess - Lung No growth in 1 week Impressions ITS Impressions Chest CTA 06/29/18 21:53 CONCLUSION: 1. Positive for pulmonary embolism, especially on the left side. 2. Metastatic lung disease with multiple bilateral pulmonary nodules and conglomerate masslike consolidation in the right upper lobe measuring up to 5 cm in diameter. Reported history of lung carcinoma. There is AP window, bilateral hilar and subcarinal adenopathy. 3. Moderate right effusion with compressive atelectasis on the right. 4. Vuvxvd-p-Yexc in superior vena cava. 5. Compared with PET scan from May 09, 2018 there is progression of metastatic lung disease, adenopathy and right pleural effusion. Head MRI 06/30/18 00:00 CONCLUSION: 1. Bilateral cerebral and right cerebellar enhancing lesions characteristic of metastatic disease. Largest lesions and measurements are given above. 2. No evidence of acute infarct or hemorrhage. 3. No significant mass effect or shift of midline structures. Venous Doppler Study 07/03/18 00:00 CONCLUSION: 1. Right brachial vein DVT. 2. Soft tissue masses which may reflect jay enlargement or metastatic disease. Catheter Placement X-Ray 07/04/18 00:00 CONCLUSION: 1. Uncomplicated chest tube placement as above. Chest X-Ray 07/08/18 00:00 CONCLUSION: Improved bilateral airspace opacity. There is residual patchy areas of airspace consolidation and reticular nodular opacities. Discharge Plan Discharge Disposition Patient Disposition: Disch W/Home Health Service Discharge Condition Condition: Fair Discharge Order Discharge Orders: Discharge Order (Routine); Ordered 07/10/18 Ordered By: Lesley Francis Discharge Details Anticipated Discharge Date: 07/10/18 Physicians Team Primary Care Provider: Juan Guerrero Attending Provider: Gerardo Anders Other Providers: Josselin Cabrera ; Collin Garcia ; Gerardo Anders ; Benja Galloway ; Ashkan Caraballo Rxs /Orders / Referrals /Forms Prescriptions: New enoxaparin [Lovenox] 80 mg/0.8 mL Syringe 70 mg subcut Q12HR Qty: 60 RF: 0 prednisone 10 mg Tablet 30 mg PO DIRECTED 30 Days Qty: 90 RF: 0 pantoprazole 40 mg Tablet,Delayed Release (Dr/Ec) 40 mg PO DAILY Qty: 30 RF: 0 hydrocodone-acetaminophen 5-325 mg Tablet 1 tab PO Q4H PRN (Reason: Pain Scale 1 To 5) Qty: 0 RF: 0 alprazolam [Xanax] 0.25 mg Tablet 0.25 mg PO Q6H PRN (Reason: Anxiety) Qty: 0 RF: 0 Continue folic acid 1 mg Tablet 1 mg PO DAILY RF: 0 levothyroxine 25 mcg Capsule 25 mcg PO DAILY RF: 0 Ambulatory Orders / Order Sets / DME: Oxygen Tank (4-6 liter) (Routine) Timeframe: 99 Months Location: Determined by Patient Ordered By: Lesley Francis Referrals: Ashkan Caraballo MD [Physician] - See Instructions (Followup with Radiation Oncology next week, call for that appt. ) Nicolas Marquez MD [Physician] - See Instructions (Followup in 2 weeks, call for that appt. ) Juan Guerrero MD [Primary Care Provider] - See Instructions Josselin Cabrera [Physician] - See Instructions (Followup with Dr. Cabrera within 1 week, call for that appt. ) Status ED Status: Left Department
[2018-07-10] MEDS ORDERED: Heparin Central Flush 100 UNIT/ML 5 ML Vial IV.FLUSH PRN ×2 (13:04)
--- NOTE | 2018-07-10 17:22 | P.PN ---
Subjective Interval history: He is on O2 4 l. On Lovenox 70 mg BID No chest pain. No SOB at rest. Physical Exam Vital signs: Vital Signs 07/09/18 20:00 07/09/18 21:10 07/10/18 00:00 Temperature 99.3 F 99.3 F Pulse Rate 100 H 100 H Respiratory Rate 18 18 Blood Pressure 117/75 118/69 Pulse Oximetry 95 95 95 07/10/18 04:00 07/10/18 08:00 07/10/18 10:20 Temperature 97.8 F 98.6 F Pulse Rate 100 H 94 H Respiratory Rate 17 18 Blood Pressure 116/75 106/88 Pulse Oximetry 94 L 94 L 94 L 07/10/18 13:33 07/10/18 16:46 Temperature 97.5 F L 98.2 F Pulse Rate 98 H 94 H Respiratory Rate 16 Blood Pressure 118/73 106/78 Pulse Oximetry 95 93 L Intake & Output 07/09/18 07/10/18 07/10/18 18:59 06:59 18:59 Intake Total 1100 / 1100 240 / 240 Output Total 975 / 975 800 / 800 500 / 500 Balance 125 / 125 -560 / -560 -500 / -500 Weight 62.1 kg Intake: Oral 1100 / 1100 240 / 240 Output: Urine 975 / 975 800 / 800 Wound Drainage 500 / 500 Right Lower Anterior Chest 500 / 500 Other: Date of Last Bowel Movement 07/08/18 GENERAL: Mid aged W/M alert SKIN: Warm and dry. HEAD: Normocephalic. EYES: No scleral icterus. No injection or drainage. NECK: Supple, trachea midline. No JVD or lymphadenopathy. CARDIOVASCULAR: Regular rate and rhythm without murmurs, gallops, or rubs. RESPIRATORY: Breath sounds decreased bilaterally. Occ Right base crackles.No accessory muscle use. GASTROINTESTINAL: Abdomen soft, non-tender, nondistended. MUSCULOSKELETAL: No cyanosis, or edema. BACK: Nontender without obvious deformity. No CVA tenderness. Results - Labs CBC & Chem 7: 07/09/18 03:43 07/09/18 03:43 Assessment and Plan - Assessment (1) COPD (chronic obstructive pulmonary disease) Code(s): J44.9 - Chronic obstructive pulmonary disease, unspecified Status: Acute (2) Recurrent right pleural effusion Code(s): J90 - Pleural effusion, not elsewhere classified Status: Acute (3) Adenocarcinoma of lung, stage 4 Code(s): C34.90 - Malignant neoplasm of unspecified part of unspecified bronchus or lung Status: Chronic (4) Leukocytosis Code(s): D72.829 - Elevated white blood cell count, unspecified Status: Acute (5) Normocytic anemia Code(s): D64.9 - Anemia, unspecified Status: Chronic (6) Hypothyroidism Code(s): E03.9 - Hypothyroidism, unspecified Status: Acute (7) Elevated INR Code(s): R79.1 - Abnormal coagulation profile Status: Acute (8) Pulmonary embolus Code(s): I26.99 - Other pulmonary embolism without acute cor pulmonale Status : Acute (9) Hypoalbuminemia Code(s): E88.09 - Other disorders of plasma-protein metabolism, not elsewhere classified Status: Acute - Plan 1. Will drain pleural catheter today and every 3rd day 2. O2 N/C 4 L 3. Duonebs qid. with nebulizer 4. Home on PO Meds 5. Continue Lovenox 70 mg BID. 6. Prednisone 20 mg BID and taper 7. Arrange home o2 and Home if sat >90 on 4 L 8.Will see as OP in 2 weeks 9. Continue Lovenox 70 mg BID per Oncology (3) Adenocarcinoma of lung, stage 4 Qualifiers: Laterality: unspecified laterality Qualified Code(s): C34.90 - Malignant neoplasm of unspecified part of unspecified bronchus or lung (4) Leukocytosis Qualifiers: Leukocytosis type: unspecified Qualified Code(s): D72.829 - Elevated white blood cell count, unspecified (6) Hypothyroidism Qualifiers: Hypothyroidism type: unspecified Qualified Code(s): E03.9 - Hypothyroidism, unspecified (8) Pulmonary embolus Qualifiers: Pulmonary embolism type: other Chronicity: acute Acute cor pulmonale presence: without acute cor pulmonale Qualified Code(s): I26.99 - Other pulmonary embolism without acute cor pulmonale
== END 2018-07-10 19:30 | disposition home health service (06) ==
LOC: NEPE 21:41 → NEDA 23:25 → HIMC 06-30 00:45 → HCIS 06-30 18:52 → HCIN 07-05 16:55
PROVIDERS: ADMIT Hospitalist; ATTEND Hospitalist
DX: F41.9 Anxiety disorder, unspecified; Z92.3 Personal history of irradiation; I26.99 Other pulmonary embolism without acute cor pulmonale; C34.91 Malignant neoplasm of unspecified part of right bronchus or lung; R79.1 Abnormal coagulation profile; I82.413 Acute embolism and thrombosis of femoral vein, bilateral; J43.9 Emphysema, unspecified; F32.9 Major depressive disorder, single episode, unspecified; R09.02 Hypoxemia; Z86.711 Personal history of pulmonary embolism; Z79.890 Hormone replacement therapy; J98.11 Atelectasis; E88.09 Other disorders of plasma-protein metabolism, not elsewhere classified; C79.51 Secondary malignant neoplasm of bone; C78.00 Secondary malignant neoplasm of unspecified lung; D64.9 Anemia, unspecified; J91.0 Malignant pleural effusion; R74.8 Abnormal levels of other serum enzymes; Z87.891 Personal history of nicotine dependence; I82.621 Acute embolism and thrombosis of deep veins of right upper extremity; E03.9 Hypothyroidism, unspecified; C77.3 Secondary and unspecified malignant neoplasm of axilla and upper limb lymph nodes; C79.31 Secondary malignant neoplasm of brain